=== PATIENT | female | born 1975 | race Caucasian/White ===

== ENCOUNTER 2018-12-04 08:44 | Emergency (ER) | payer MEDICARE, MEDICAID, SELFPAY ==
[2018-12-04] VITALS (24 sets, daily range): BP systolic 126–147; BP diastolic 84–100; PULSE 72–91; RESP 22; TEMP 36.6; O2SAT 95–100
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
[2018-12-04] MEDS: Lactated Ringers 1,000 ML 150 ML IV (09:49)
[2018-12-04] MEDS: Lidocaine 5% Patch 1 PATCH (10:04)
[2018-12-04 10:13] LABS: Abs Immature Grans 0.02 k/cumm (0.0-0.09); Absolute Basophil Count 0.03 k/cumm (0.0-0.2); Absolute Eosinophil Count 0.04 k/cumm (0.0-0.7); Absolute Lymphocyte Count 0.76 k/cumm (1.2-3.4); Absolute Monocyte Count 0.51 k/cumm (0.11-0.7); Absolute Neutrophil Count 7.68 k/cumm (1.2-6.7); Basophils % 0.3; Eosinophils % 0.4; HCT 33.7 % (36.0-46.0); HGB 10.3 g/dL (12.0-15.5); Immature Grans % 0.2; Lymphocytes % 8.4; Mean Corp. HGB Concentration 30.6 g/dL (32.0-36.0); Mean Corpuscular Hemoglobin 22.4 pg (27.0-33.0); Mean Corpuscular Volume 73.3 fL (80-95); Mean Platelet Volume 11.7 fL (8.0-11.0); Monocytes % 5.6; Neutrophils % 85.1; Platelet Count 286 x1000/uL (130-400); RBC Distribution Width 16.7 % (11.7-14.6); White Blood Cell Count 9.04 k/cumm (4.4-10.8)
[2018-12-04 10:27] LABS: ALT 21 U/L (12-78); AST 19 U/L (15-37); Albumin 3.5 g/dL (3.4-5.0); Alkaline Phosphatase 109 U/L (46-116); Anion Gap 8.6 mmol/L (3-11); BUN 8 mg/dL (7-18); Bilirubin, Total 0.4 mg/dL (0.2-1.0); CO2 26.4 mmol/L (21.0-32.0); CREATININE 1.13 mg/dL (0.55-1.02); Calcium 8.6 mg/dL (8.5-10.1); Chloride 105 mmol/L (98-107); Estimated GFR 53.06 (mL/min/1.73m2); Glucose 91 mg/dL (70-100); Potassium 4.2 mmol/L (3.5-5.1); Sodium 140 mmol/L (136-145); Total Protein 7.5 g/dL (6.4-8.2)
[2018-12-04 10:42] LABS: Anisocytosis 1+; Diff Comment RBC Morph Reviewed; Hypochromasia 1+; Microcytosis 2+
[2018-12-04] MEDS: Omnipaque 350 MG/ML 100 ML BTL IJ (10:47)
[2018-12-04] MEDS: Acetaminophen 325 MG TAB (11:51)
== END 2018-12-04 12:33 | disposition home or self-care (01) ==
PROVIDERS: Emergency Provider Student in an Organized Health Care Education/Training Program; PCP Nurse Practitioner Family
DX: S22.42XA Multiple fractures of ribs, left side, initial encounter for closed fracture (principal); V43.63XA Car passenger injured in collision with pick-up truck in traffic accident, initial encounter
CPT/HCPCS: 36415; 74177; 80053; 86850; 86900; 86901; 96360; 96361; 99285; 71260; 85025; 99284; J3490

== ENCOUNTER 2019-03-21 18:24 | Outpatient (REF) | payer MEDICARE, MEDICAID, SELFPAY | END 2019-03-21 18:44 | LOC: NCHCN 18:24 | PROVIDERS: PCP Nurse Practitioner Family; Visit Provider Nurse Practitioner Family | DX: N39.0 Urinary tract infection, site not specified (principal) | CPT/HCPCS: 87077; 87086; 87186 ==

== ENCOUNTER 2020-02-24 16:06 | Outpatient (REF) | payer MEDICARE, MEDICAID, SELFPAY ==
[2020-02-24 19:08] LABS: Abs Immature Grans 0.02 10^3/uL (0.0-0.06); Absolute Basophil Count 0.03 10^3/uL (0.0-0.2); Absolute Eosinophil Count 0.18 10^3/uL (0.0-0.7); Absolute Lymphocyte Count 1.54 10^3/uL (1.2-3.4); Absolute Neutrophil Count 4.43 10^3/uL (1.2-6.7); Basophils % 0.5; Eosinophils % 2.7; HCT 30.3 % (36.0-46.0); HGB 8.9 g/dL (11.2-15.7); Immature Grans % 0.3; Lymphocytes % 23.3; MCH 20.8 pg (27.0-33.0); MCHC 29.4 % (32.0-36.0); MCV 70.8 fL (80-95); MPV 11.8 fL (8.0-11.0); Monocytes % 6.1; Neutrophils % 67.1; Nucleated RBC 0 %; RBC 4.28 10^6/uL (3.93-5.22); RDW 17.9 % (11.7-14.6); RDW-SD 45.2 fL
[2020-02-24 19:28] LABS: Diff Comment RBC Morph Reviewed
[2020-02-24 19:34] LABS: Hypochromasia 2+; Microcytosis 3+; Poikilocytes 1+; Polychromasia Present
[2020-02-24 19:35] LABS: Platelet Count 223 10^3/uL (130-400)
[2020-02-24 19:56] LABS: Ferritin 4 ng/mL (8-252); Vitamin B12 375 pg/mL (193-986)
[2020-02-24 19:57] LABS: Folate > 20.0 ng/mL (8.6-20.0)
[2020-02-24 20:01] LABS: Iron 16 ug/dL (50-170); Total Iron Binding Capacity 412 ug/dL (250-450); Transferrin Sat 4 % (15-50)
== END 2020-02-24 16:26 ==
LOC: NCHCN 16:06
PROVIDERS: PCP Nurse Practitioner Family; Visit Provider Nurse Practitioner
DX: R36.0 Urethral discharge without blood (principal); R35.0 Frequency of micturition; Z86.2 Personal history of diseases of the blood and blood-forming organs and certain disorders involving the immune mechanism
CPT/HCPCS: 87077; 82607; 82728; 82746; 83540; 83550; 85025; 87086; 87186

== ENCOUNTER → 2020-05-15 10:24 | Outpatient (BNVA) | payer MEDICARE, MEDICAID, SELFPAY | PROVIDERS: PCP Nurse Practitioner Family; Referring Provider Nurse Practitioner Family; Visit Provider Surgery | DX: Z12.11 Encounter for screening for malignant neoplasm of colon (principal); Z80.0 Family history of malignant neoplasm of digestive organs; Z86.010 Personal history of colon polyps ==

== ENCOUNTER 2020-05-21 04:50 | Outpatient (CLI) | payer MEDICARE, MEDICAID, SELFPAY ==
[2020-05-23 10:02] LABS: COVID-19 RT-PCR Result NEGATIVE (Negative)
== END 2020-05-21 05:10 ==
PROVIDERS: PCP Nurse Practitioner Family; Visit Provider Surgery
DX: Z11.59 Encounter for screening for other viral diseases (principal); Z01.818 Encounter for other preprocedural examination
CPT/HCPCS: U0003

== ENCOUNTER 2020-05-25 06:47 | Day surgery (SDC) | payer MEDICARE, MEDICAID, SELFPAY ==
--- NOTE | 2020-05-25 06:50 | COLE_ITS ---
Date of service: 05/25/20 Time of Service: 08:27 Colonoscopy Report Date of procedure: 05/25/20 Pre-op diagnosis general: Hx of polyps and Family history of colon cancer Post-op diagnosis procedure note: same (polyps and diverticulosis) Procedure: Colonoscopy with polypectomy Surgeon: Rakel Peterson Anesthesia proc note operative: other (general/ASA 2/ González Alves CRNA) Estimated blood loss (mL): 3 Pathology: other (Ascending polyp, Transverse polyps x3) Complications: None Disposition: same day Indications: Ms. Kasper is here today to discuss a screening colonoscopy. She has a history of colon polyps as well as a family history of colon cancer in her father. Her father was in his 30s when he was diagnosed. She has not had any changes in bowel habits, melena or hematochezia. She was diagnosed with worsening anemia and started on iron recently. She has COPD and is on some inhalers. She denies any chest pain or shortness of breath. The procedure was discussed in detail. Reviewed risks benefits and com plications. Complications include but are not limited to bleeding, pain, perforation, missed small polyp or lesion, sore throat, aspiration and adverse reaction to medications. Questions were entertained and answered to her satisfaction and she wished to proceed. No guarantees were given or implied. We also reviewed current guidelines for Covid testing. We reviewed the quarantine guidelines after testing until the day of her procedure. Questions were answered in she agreed to testing. Plan is for colonoscopy under sedation. Prep: Miralax/Dulcolax Procedure Start Time: 08:27 Procedure End Time: 08:52 Retraction Time: 18 minutes Findings: 4 small sessile polyps. All <1 cm in size Lynn-diverticulosis. L>R Procedure Description: After informed consent was obtained the patient was taken to the procedure room and placed in a left decubitous position. Monitors were applied and a time out was done. The patients name, date of , procedure, allergies to medications and metal in their body was reviewed. The patient was then sedated. Once sedated and comfortable a rectal exam was done. External exam was normal. Internal exam revealed a normal sphincter tone and no palpable masses. The scope was then introduced and retro-flexed. No internal hemorrhoids were identified. The scope was then advanced to the cecum without difficulty. The ileocecal valve and appendiceal orifice were identified. The prep was good. The scope was then slowly retracted over 18 minutes back into the rectum. Polyps were removed with cold forceps in the ascending colon x1, and transverse colon x3. There was mild diverticulosis noted in the ascending and transverse colon and moderate diverticulosis in the descending and sigmoid colon. The scope was removed and the patient was woken up and taken back to Same day surgery in stable condition. The patient tolerated the procedure well and there were no immediate complications. Follow up: The patient should follow up in 5 years unless they develop changes in bowel habits or other new gastrointestinal complaints.
--- NOTE | 2020-05-25 06:52 | W.PM.DSUDISC ---
Discharge Plan Disposition Patient Disposition: HOME Condition: Stable Discharge Details Reason For Visit: Colonoscopy Attending Provider: Rakel Peterson Primary Care Provider: Clair Turner Home Meds and New Rx's Prescriptions: Continued lisinopril 20 mg tablet 20 mg PO DAILY RF: 0 magnesium oxide 500 mg tablet 500 mg PO BID RF: 0 hydroxyzine HCl 25 mg tablet 25 mg PO BID PRNRF: 0 budesonide-formoterol [Symbicort] 160-4.5 mcg/actuation HFA aerosol inhaler 1 puff IH BID RF: 0 rizatriptan 10 mg tablet 10 mg PO ONCE RF: 0 epinephrine [EpiPen 2-Ho] 0.3 mg/0.3 mL auto-injector 0.3 mg IM ONCE RF: 0 omeprazole 40 mg capsule,delayed release(DR/EC) 40 mg PO DAILY RF: 0 duloxetine [Cymbalta] 60 mg capsule,delayed release(DR/EC) 60 mg PO DAILY RF: 0 multivitamin Tablet 1 tab PO DAILY RF: 0 fluticasone propion-salmeterol [Advair Diskus] 500-50 mcg/dose blister with device 1 inh inhalation BID RF: 0 valacyclovir 500 mg tablet 500 mg PO DAILY RF: 0 albuterol sulfate [Ventolin HFA] 60 PUFF HFA aerosol inhaler 2 puff Inhalation Q4H PRNQty: 1 RF: 0 Discontinued bisacodyl [Dulcolax (bisacodyl)] 5 mg tablet,delayed release (DR/EC) 5 mg PO ONCE Qty: 4 RF: 0 polyethylene glycol 3350 17 gram powder in packet 255 g PO DAILY Qty: 15 RF: 0 Discharge Instructions Instructions: Diverticulosis (DC) Additional Instructions: Findings: 4 small polyps Diverticulosis Follow up: 5 years Please call if you develop: fevers >101.5 Nausea or Vomiting Abdominal pain that is not transient DAY SURGERY UNIT POST ENDOSCOPY INSTRUCTIONS 1. Because there will be medication in your system for the next 24 hours, you may feel a little sleepy. Your coordination will be affected. Therefore: a. Do not drive or operate dangerous equipment for 24 hours. b. Do not drink alcohol beverages for 24 hours (not even beer). c. Plan to go home and rest for the day. 2. Generally there are no restrictions on your activity after a day or so has gone by, but you may feel a bit fatigued for a few days. 3 After you arrive home you may have a light meal and return to a normal diet as you can tolerate it without feeling sick to your stomach. 4. After surgery, you may feel pain or discomfort. This should be only transient, but if it persists please contact your doctor. 5. If there are any questions regarding the findings of your procedure, please feel free to contact your doctor. 6. If you are unable to contact your doctor with a problem, contact the hospital at [phone]. 7. Continue all your regular medications unless directed otherwise. I understand the above instructions and have no questions. Signature of Patient or Responsible Adult Escort Date/Time Name of Responsible Adult Escort Signature of Nurse Date/Time Activity:: Activity as Tolerated Diet:: High Fiber diet Discharge Orders Discharge Orders: Discharge Order (Routine); Ordered 05/25/20 Ordered By: Rakel Peterson
[2020-05-25 07:15] VITALS: BP 113/79; PULSE 85; RESP 18; TEMP 36.2; O2SAT 95
[2020-05-25] MEDS: Lactated Ringers 1,000 ML 80 ML IV (07:42)
--- NOTE | 2020-05-25 08:35 | BOWEL_PTH ---
PATIENT: Meron Kasper LOC: RG U#:[id number] AGE/SX: 44/F ROOM: RE05/25/[address]: Rakel Peterson MD : 1975 BED: DIS: 05/25/2020 SPEC #: [id number] RECD: 05/25/20 12:28 STATUS: CATRACHITA REQ #: [id number] ABBIE: 05/25/20 08:[address]: Rakel Peterson DEPT: Surgical Specimen RECD BY: Ivelisse Huertas ENTERED: 05/25/20 12:29 SP TYPE: Bowel OTHR DR: Clair Turner Tissues: 1 - BIOPSY BOWEL 2 - BIOPSY BOWEL Procedures: GROSS AND MICRO LEVEL 4 Comments: [id number]
[2020-05-25 09:27] VITALS: BP 101/61; PULSE 68; RESP 17; TEMP 36.2; O2SAT 92
== END 2020-05-25 09:57 | disposition home or self-care (01) ==
PROVIDERS: PCP Nurse Practitioner Family; Visit Provider Surgery
PROC: 0DJD8ZZ Inspection of Lower Intestinal Tract, Via Natural or Artificial Opening Endoscopic (ICD-10-PCS; CPT 45378; principal; 2020-05-25 08:30)
DX: Z12.11 Encounter for screening for malignant neoplasm of colon (principal); Z80.0 Family history of malignant neoplasm of digestive organs; Z86.010 Personal history of colon polyps; D64.9 Anemia, unspecified; J44.9 Chronic obstructive pulmonary disease, unspecified; K63.5 Polyp of colon; K57.30 Diverticulosis of large intestine without perforation or abscess without bleeding
CPT/HCPCS: 45380; 81025; 88305; J2001

== ENCOUNTER 2022-05-11 12:00 | Outpatient (CLI) | payer MEDICARE, SELFPAY ==
--- NOTE | 2022-05-11 | DI.RAD_ITS ---
Exam(s) XR CHEST 2V PA LATERAL EXAM: XR CHEST 2V PA LATERAL CLINICAL HISTORY: COUGH, R05.8. TECHNIQUE: 2D digital imaging was performed. COMPARISON: CR ABD FLAT UPRIGHT PA CHEST from 06/23/2009 FINDINGS: 2 views: Heart size is normal. The mediastinum is not widened. Lungs are clear. No infiltrates nor pleural effusions. IMPRESSION: No acute pulmonary findings. DATA REPOSITORY: RADIATION DOSE DELIVERED:
--- OUTSIDE RECORDS SUMMARY | 2022-05-11 12:06 | XMS_ITS | Encounter Summary ---
:1975 Author Organization [facility] Address [address] [place] [address] Care Team Providers Name Role Phone Unavailable Primary Care Provider Unavailable Encounter Details Date Type Department Care Team Description 03/21/2008 Before [facility] - Hieu Brewster NP Converted Visit Maple conversion [address] ([place]) [address] [facility] [address] [place], [place] [id number] [place] [phone] (Wo rk) Social History Tobacco Use Types Packs/Day Years Used Date Smoking Tobacco: Never Assessed Sex Assigned at Date Recorded Not on file documented as of this encounter Plan of Treatment Not on filedocumented as of this encounter Procedures Procedure Name Priority Date/Time Associated Diagnosis Comme [facility] CYTOPATHOLOGY Routine 03/21/2008 0:00 EDT Results for this procedure are i n the results section . documented in this encounter Results CYTOPATHOLOGY (03/21/2008 0:00 EDT) Component Value Ref Test Analysis Performed At [facility] Method Time [facility] Pathology CYTOPATHOLOGY REPORT ? STEPHEN Report: ? [facility] Reports generated via electr onic interface contain original data; ? however they are lacking the format of the original report. ? Caution should be taken when reading/interpreting unformatted reports. ? Name: ? MERON RIVERA ? Accession #: ? [id number] ? : ? 1975 (Age: 32) ??F ?Collect Date: ? 03/21/2008 ? Location: ? [facility] ? Receive Date: ? 03/24/2008 ? Provider: ?AKANKSHA RAOUL HEWS PREBOARDER ? Copy to: ? Specimen/Source: ? Pap Test, Cervix/Endocervix, ThinPrep Imaging System ? with manual evaluation ? Last Menstrual Period: ? 10/2/08 ? Hormonal/Contraceptive Statu s: ? Control Pills: In past ? Previous Gynecologic Patholo gy: ? HPV: + ? ASC-US: 7/06, 5/03 ? FIDEL II: 7/3/03 ? Treatment History: ? Cervical biopsy: 7/3/03 ? Infection History: ? Bacterial vaginosis: Recurre nt and yeast ? Other: ? HPVA - HPV testing requested if ASC-US on the current ThinPrep Pap test. ? SPECIMEN ADEQUACY ? Satisfactory for Eval uation ? - transformation zone compon ent present ? GENERAL CATEGORIZATION ? Negative for Intraepi thelial Lesion or Malignancy ? Document reviewed and electr onically signed by: ? Lynan Sandro, CT(ASCP) ? Report Date: ??10/15/ 2008 17:11 ? End of Report ? Specimen (Source) Anatomical Location Collection Method / Collectio n Time Received Time / Laterality Volume 03/21/2008 03/24/2008 Akanksha Brewster NP PATHOLOGY ORDERABLES Performing Organization Address City/State/ZIP Code Phon e Number [facility] [address] [place] [address] SERVICES [facility] [address] [place] [address] documented in this encounter Visit Diagnoses Not on filedocumented in this encounter
--- OUTSIDE RECORDS SUMMARY | 2022-05-11 12:06 | XMS_ITS | Encounter Summary ---
:1975 Author Organization [facility] Address [address] [place] [id number] Care Team Providers Name Role Phone Fay Riddle MD Primary Care Provider Encounter Details Date Type Department Care Team Description 07/21/2010 Results Only [facility] Devi Gibson NP Laboratory Services - [address] [address] Social History Tobacco Use Types Packs/Day Years Used Date Smoking Tobacco: Never Assessed Sex Assigned at Date Recorded Not on file documented as of this encounter Plan of Treatment Not on filedocumented as of this encounter Procedures Procedure Name Priority Date/Time Associated Diagnosis Comme nts CYTOPATHOLOGY Routine 07/21/2010 0:00 EST Results for this procedure are i n the results section . documented in this encounter Results CYTOPATHOLOGY (07/21/2010 0:00 EST) Component Value Ref Test Analysis Performed At [facility] Range Method Time Signature Pathology CYTOPATHOLOGY REPORT ? [facility] Report: ? [facility] Reports generated via AllergEase interface contain original data; ? however they are lacking the format of the original report. ? Caution should be taken when reading/interpreting unformatted reports. ? Name: ? MERON RIVERA ? Accession #: ? [id number] ? : ? 1975 (Age: 34) ??F ?Collect Date: ? 07/21/2010 ? Location: ? [facility] ? R eceive Date: ? 07/22/2010 ? Provider: DEVI M SOLO TRACK WATCHMAN ? Copy to: ? Final Report ? SPECIMEN ADEQUACY ? Satisfactory for Eval uation ? - transformation zone compon ent present ? GENERAL CATEGORIZATION ? Negative for Intraepi thelial Lesion or Malignancy ? INTERPRETATION ? Shift in arron presen t suggestive of bacterial vaginosis. ? Last Menstural Period: 2010 ? Previous Gynecologic Patholo gy: FIDEL II: H/O ? ASC-US: 2005 ? Treatment History: Colposcop y: 2003 ? Specimen/Source: ??Pap Test, Cervix/Endocervix, ThinPrep Imaging System with ? manual evaluation ? Document reviewed and electr onically signed by: ? Vani Middleton, SCT( ASCP) ? Report ??Date: 02/14/ 2011 13:21 ? HPV with Pap Test ? Date Ordered: ? 0 07/26/2010 ? Status: ?? Signed Out ?Date Complete: ? 07/29/2010 ? By: ??System Interface ? Date Reported: ? 07/29/2010 ? Interpretation ? RESULT: Negative for HPV typ es 16, 18, 31, 33, 35, 39, 45, 51, 52, ? 56, 58, 59, and 68. ? Comments ? Document reviewed and electr onically signed by: ? System Interface ? Report date: // 11 ? By the signature above, the attending physician certifies that he/she has ? personally conducted a gross and/or microscopic examination of the described ? specimens and rendered or co nfirmed the above diagnosis. ? End of Report ? Specimen (Source) Anatomical Location Collection Method / Collectio n Time Received Time / Laterality Volume 07/21/2010 07/22/2010 Devi Gibson NP PATHOLOGY ORDERABLES Performing Organization Address City/State/ZIP Code Phon e Number [facility] [address] [place] [address] SERVICES [facility] [address] [place] [address] documented in this encounter Visit Diagnoses Not on filedocumented in this encounter Care Teams Calibration Tester Relationship Specialty Start Date End Date Fay Riddle MD PCP - General 07/21/09 [address] [place] [address] documented as of this encounter
--- OUTSIDE RECORDS SUMMARY | 2022-05-11 12:06 | XMS_ITS | Encounter Summary ---
:1975 Author Organization [facility] Address [address] [place] [address] Care Team Providers Name Role Phone Fay Riddle MD Primary Care Provider Encounter Details Date Type Department Care Team Description 02/22/2010 Hospital Encounter [facility] - Bhumi Robert, Other DMD [address] [facility] [address] [place] [address] [address] [place] [phone] (Wo rk) Social History Tobacco Use Types Packs/Day Years Used Date Smoking Tobacco: Never Assessed Sex Assigned at Date Recorded Not on file documented as of this encounter Discharge Disposition Disposition Code Departure Means Destination Home or Self Care documented in this encounter Plan of Treatment Not on filedocumented as of this encounter Visit Diagnoses Not on filedocumented in this encounter Care Teams Piano And Organ Refinisher Relationship Specialty Start Date End Date Fay Riddle MD PCP - General 07/21/[address] [place] [phone] documented as of this encounter
--- OUTSIDE RECORDS SUMMARY | 2022-05-11 12:06 | XMS_ITS | Encounter Summary ---
:1975 Author Organization [facility] Address [address] [place] [address] Care Team Providers Name Role Phone Fay Riddle MD Primary Care Provider Encounter Details Date Type Department Care Team Description 10/26/2009 Results Only [facility] Cesar Bhandari MD Laboratory Services - [address] [address] [address] [facility] [place] [address] Social History Tobacco Use Types Packs/Day Years Used Date Smoking Tobacco: Never Assessed Sex Assigned at Date Recorded Not on file documented as of this encounter Plan of Treatment Not on filedocumented as of this encounter Procedures Procedure Name Priority Date/Time Associated Diagnosis Comme [facility] SURGICAL PATHOLOGY Routine 10/26/2009 0:00 EDT Re sults for this procedure are i n the results section. documented in this encounter Results SURGICAL PATHOLOGY (10/26/2009 0:00 EDT) Component Value Ref Test Analysis Performed At [facility] Method Time Signature Pathology SURGICAL PATHOLOGY REPORT ? HONEY HER Report: Reports generated via electr Lopoly interface contain original data; ? [facility] WALLACE however they are lacking the format of the original report. ? Caution should be taken when reading/interpreting unformatted reports. ? Name: ? WHITE, MERON ? Accession #: ? [id number] ? : ? 1975 (Age: 33) ??F ? Collec t Date: ? 10/26/2009 ? Location: ? [facility] ? R eceive Date: ? 10/26/2009 ? Provider: CESAR JAUCH MD ? Copy to: AKANKSHA WHITLOCK ACCOUNTING SUPERVISOR ? Final Pathologic Diagnosis: ? A. ?Tonsil, lef t, tonsillectomy: ? 1. ?Reactive ly mphoid hyperplasia. ? 2. ? Focal acute inflamm ation of tonsillar crypts associated with ? Actinomycotic--like micro-or ganisms. ? B. ?Tonsil, rig ht, tonsillectomy: ? 1. ?Reactive ly mphoid hyperplasia. ? 2. ? Focal acute inflamm ation of tonsillar crypts associated with ? Actinomycotic-like micro-org anisms. ? Document reviewed and electr onically signed by: ? Meme Hamilton MD ? Report ??Date: 10/28/2009 16 :09 ? By the signature above, the attending physician certifies that he/she has ? personally conducted a gross and/or microscopic examination of the described ? specimens and rendered or co nfirmed the above diagnosis. ? Specimen(s) Received: ? A. ?Left tonsil ? B. ? Right tonsil ? Clinical History: ? Chronic tonsillitis w ith recurrent strep ? Gross Description: ? Received in formalin labelled White, Meron and left tonsil is a 2.2 x 1.8 x 1.4 cm, nodular tiss ue grossly consistent with a palatine tonsil. ??The ?? specimen is partially surfac ed by a pink-cui, smooth and cryptic mucosa and upon sectioning has a pink-cui cu t surface without discrete masses. ?? A single ? sales solutions representative section is whitt bmitted as (A). ? Received in formalin akosua d White, Meron and right tonsil is a 2.8 x ?? 1.9 x 1.5 cm, nodular tissue grossly consistent with a palatine tonsil. ??The ? specimen is partially surfac ed by a pink-cui, smooth and cryptic mucosa and ? sectioning reveals a pink-ta n cut surface without discrete masses. ??A single ? sales solutions representative section is whitt bmitted as (B). ??(Barbara Medina)/samm ? End of Report ? Specimen (Source) Anatomical Collection Method Collection Time Re ceived Time Location / / Volume Laterality 10/26/2009 10/26/2009 19:4 8 EDT Cesar Bhandari MD PATHOLOGY ORDERABLES Performing Organization Address City/State/ZIP Code Phon e Number [facility] [address] [place] [address] SERVICES [facility] [address] [place] [address] documented in this encounter Visit Diagnoses Not on filedocumented in this encounter Care Teams Associate Director Qa Relationship Specialty Start Date End Date Fay Riddle MD PCP - General 07/21/09 [address] [place] [address] documented as of this encounter
--- OUTSIDE RECORDS SUMMARY | 2022-05-11 12:06 | XMS_ITS | Clinical Summary ---
:1975 Author Organization [facility] Address [address] [place] [address] Care Team Providers Name Role Phone Fay Riddle MD Primary Care Provider Social History Tobacco Use Types Packs/Day Years Used Date Smoking Tobacco: Never Assessed Sex Assigned at Date Recorded Not on file Plan of Treatment Health Maintenance Due Date Last Done Comments Hepatitis C Screen 1975 COVID-19 Vaccine (#1) 07/03/1977 Care Teams Welt Trimming Machine Operator Relationship Specialty Start Date End Date Fay Riddle MD PCP - General 07/21/[address] [place] [address]
--- OUTSIDE RECORDS SUMMARY | 2022-05-11 12:06 | XMS_ITS | Encounter Summary ---
:1975 Author Organization [facility] Address [address] [place] [address] Care Team Providers Name Role Phone Fay Riddle MD Primary Care Provider Encounter Details Date Type Department Care Team Description 02/22/2010 Results Only [facility] Lan Robert, DMD Laboratory Services - [address] [facility] [address] [place], [place] [phone] (Wo rk) Social History Tobacco Use Types Packs/Day Years Used Date Smoking Tobacco: Never Assessed Sex Assigned at Date Recorded Not on file documented as of this encounter Plan of Treatment Not on filedocumented as of this encounter Procedures Procedure Name Priority Date/Time Associated Diagnosis Comme [facility] SURGICAL PATHOLOGY Routine 02/22/2010 0:00 EDT Re sults for this procedure are i n the results section. documented in this encounter Results SURGICAL PATHOLOGY (02/22/2010 0:00 EDT) Component Value Ref Test Analysis Performed At [facility] Method Time Signature Pathology SURGICAL PATHOLOGY REPORT ? HONEY HER Report: Reports generated via electr TxVia interface contain original data; ? JANAY WALLACE however they are lacking the format of the original report. ? Caution should be taken when reading/interpreting unformatted reports. ? Name: ? WHITE, MERON ? Accession #: ? [id number] ? : ? 1975 (Age: 34) ??F ? Collec t Date: ? 02/22/2010 ? Location: ? [facility] ? R eceive Date: ? 02/22/2010 ? Provider: ERNESTO A MAXIM D MD ? Copy to: GLORIA A JS DDS ? Final Pathologic Diagnosis: ? Mandible, left lower, lesion, excision: ? - Fibro-osseous lesion. ??Se e comment. ? Comment: ? The specimen shows ir regular trabeculae of osteoid and woven bone, ? surrounded by a fibrous spin dle cell stroma. ??There are rare fragments of ? lamellar bone. ??The differe ntial diagnosis includes both fibrous dysplasia as ?? well as ossifying fibroma. T he trabeculae are not rimmed by osteoblasts, a ? finding which favors fibrous dyplasia rather than ossifying fibroma, however, ?? the distinction between thes e two entities requires radiologic correlation. ? Cementum is not identified. No features of malignancy are identified. ? Senior Construction Manager sections were reviewed at the intradepartmental consultation ? conference. ??(Dr. Navarro)/ arthur ? Document reviewed and electr onically signed by: ? JENNIFER FUENTES MD ? Report ??Date: 02/25/2010 15 :19 ? By the signature above, the attending physician certifies that he/she has ? personally conducted a gross and/or microscopic examination of the described ? specimens and rendered or co nfirmed the above diagnosis. ? Specimen(s) Received: ? Contents of lesion L mandible ? Clinical History: ? 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 Gross Description: ? Received in formalin labelled White, Meron and lower left mandible ?? are multiple fragments of re d-brown, bony tissue which measure 1.0 x 0.6 x 0.4 ?? cm in aggregate. ??Also pres ent is a portion of cui-white soft tissue measuring ?? 0.6 x 0.6 x 0.2 cm. ??The earlene ny tissues are submitted entirely as (A1) following ?? decalcification. ??The soft tissue is bisected and submitted entirely as (A2). ?? (RUTH ANN Tessitore)/justinn ? End of Report ? Specimen (Source) Anatomical Collection Method Collection Time Re ceived Time Location / / Volume Laterality 02/22/2010 02/22/2010 19:5 9 EDT Ernesto Robert DMD PATHOLOGY ORDERABLES Performing Organization Address City/State/ZIP Code Phon e Number [facility] [address] [place] [address] SERVICES [facility] [address] [place] [address] documented in this encounter Visit Diagnoses Not on filedocumented in this encounter Care Teams Relationship Specialty Start Date End Date Fay Riddle MD PCP - General 07/21/09 [address] [place], [place] [address] documented as of this encounter
--- OUTSIDE RECORDS SUMMARY | 2022-05-11 12:07 | XMS_ITS | Encounter Summary ---
:1975 Author Organization [facility] Address [address] [place] [address] Care Team Providers Name Role Phone Fay Riddle MD Primary Care Provider Encounter Details Date Type Department Care Team Description 01/21/2005 Results Only [facility] - Fay Moreno MD conversion [address] [facility] [address] [place] [address] [place], [place] [id number] [phone] Social History Tobacco Use Types Packs/Day Years Used Date Smoking Tobacco: Never Assessed Sex Assigned at Date Recorded Not on file documented as of this encounter Plan of Treatment Not on filedocumented as of this encounter Procedures Procedure Name Priority Date/Time Associated Comments Diagnosis HPV DETECTION, HIGH Routine 01/21/2005 9:38 Resul ts for this RISK TYPES EDT procedure are i n the results section. CYTOPATHOLOGY Routine 01/21/2005 0:00 Results for this EDT procedure are i n the results section. documented in this encounter Results HUMAN PAPILLOMA VIRUS DNA TEST (01/21/2005 9:38 EDT) [facility] Method Time Signature Specimen Cervix, MITCHELL Description ThinPrep [facility] vial Result Negative for MITCHELL HPV types [facility] 16, 18, 31, 33, 35, 39, 45, 51, 52, 56, 58, 59, and 68. Report Status Final STEPHEN [id number] [facility] Specimen Anatomical Collection Method Collection Time Receive d Time (Source) Location / / Volume Laterality 01/21/2005 9:38 02/04/2005 9 :38 EDT EDT Fay Riddle MD MICROBIOLOGY - GENERAL ORDER DAYANNA Performing Organization Address City/State/ZIP Code Phon e Number [facility] [address] [place] [address] SERVICES [facility] [address] [place] [address] CYTOPATHOLOGY (01/21/2005 0:00 EDT) Component Value Ref Test Analysis Performed At [facility] Method Time Signature Pathology CYTOPATHOLOGY REPORT STEPHEN Report: [facility] Reports generated via electronic interface contain original data; however they are lacking the format of the original report. Caution should be taken when reading/interpreting unformatte d reports. Name: ? MERNO RIVERA ? Accession #: ? [id number] : ? 1975 (Age: 29) ??F ?Collect Date: ? 01/21/2005 Location: ? [facility] ? Receive Date: ? 01/24/2005 Provider: ?FAY RIDDLE MD Copy to: ? Specimen/Source: ? ThinPrep Pap Test, Cervix, processed on [employer] ThinPrep Imaging System, with manual evaluation Last Menstrual Period: ? 12/15/04 Previous Gynecologic Pathology: ? Yes: dysplasia Treatment History: ? Cryotherapy Other: ? HPVDX - HPV testing requested regardless of diag nosis on current ThinPrep Pap test. ? SPECIMEN ADEQUACY ? Satisfactory for Evaluation - transformation zone component present GENERAL CATEGORIZATION ? Epithelial Cell Abnormality INTERPRETATION ? Squamous Cell Abnormality - Atypical squamous cells, undetermined significance. Shift in arron present suggestive of bacterial vaginosis. EDUCATIONAL NOTES/RECOMMENDATIONS ? [facility] recommends jax wing the 2001 Consensus Guidelines for the Management of Women with Cervical Cytological Abnormalities (MESSI,2002 ;287:2120-9). Management algorithms have b een distributed by [facility] and are available online at www.ASCCP.org. ? Document reviewed and electronically signed by: ? ONELIA HORVATH MD ? Report Date: ??02/03/2005 14:17 End of Report Specimen (Source) Anatomical Location Collection Method / Collectio n Time Received Time / Laterality Volume 01/21/2005 01/24/2005 Fay Riddle MD PATHOLOGY ORDERABLES Performing Organization Address City/State/ZIP Code Phon e Number [facility] [address] [place] [address] SERVICES [facility] [address] [place] [address] documented in this encounter Visit Diagnoses Not on filedocumented in this encounter Care Teams Biomass Power Plant Manager Relationship Specialty Start Date End Date Fay Riddle MD PCP - General 07/21/09 [address] [place], [place] [id number] documented as of this encounter
--- OUTSIDE RECORDS SUMMARY | 2022-05-11 12:07 | XMS_ITS | Encounter Summary ---
:1975 Author Organization [facility] Address [address] [place] [address] Care Team Providers Name Role Phone Fay Riddle MD Primary Care Provider Encounter Details Date Type Department Care Team Description 11/29/2001 Results Only [facility] - Fay Moreno MD conversion [address] [facility] [address] [place] [address] [place], [place] [id number] [phone] Social History Tobacco Use Types Packs/Day Years Used Date Smoking Tobacco: Never Assessed Sex Assigned at Date Recorded Not on file documented as of this encounter Plan of Treatment Not on filedocumented as of this encounter Procedures Procedure Name Priority Date/Time Associated Diagnosis Comme nts CYTOPATHOLOGY Routine 11/29/2001 0:00 EDT Results for this procedure are i n the results section . documented in this encounter Results CYTOPATHOLOGY (11/29/2001 0:00 EDT) Component Value Ref Test Analysis Performed At [facility] Method Time Signature Pathology CYTOPATHOLOGY REPORT STEPHEN Report: [facility] Reports generated via electronic interface contain original data; however they are lacking the format of the original report. Caution should be taken when reading/interpreting unformatte d reports. Name: ? MERON RIVERA ? Accession #: ? [id number] : ? 1975 (Age: 25) ??F ?Collect Date: ? 11/29/2001 Location: ? [facility] ? Receive Date: ? 12/03/2001 Provider: ?FAY RIDDLE MD Copy to: ? Specimen/Source: ?ThinPrep Pap Test, Cervix/Endoce rvix Last Menstrual Period: ? 3 days ago Hormonal/Contraceptive Status: ? Oral contraceptives ? SPECIMEN ADEQUACY ? Satisfactory for Evaluation - transformation zone component present GENERAL CATEGORIZATION ? Epithelial Cell Abnormality INTERPRETATION ? Squamous Cell Abnormality - High grade sq uamous intraepithelial lesion (HSIL). EDUCATIONAL NOTES/RECOMMENDATIONS ? [facility] recommends jax wing the 2001 Consensus Guidelines for the Management of Women with Cervical Cytological Abnormalities (MESSI,2002 ;287:2120-9). Management algorithms have b een distributed by [facility] and are available online at www.[email or web address]. ? Document reviewed and electronically signed by: ? VI CURRAN MD [facility] ? Report Date: ??12/06/2001 15:50 End of Report Specimen (Source) Anatomical Location Collection Method / Collectio n Time Received Time / Laterality Volume 11/29/2001 12/03/2001 Fay Riddle MD PATHOLOGY ORDERABLES Performing Organization Address City/State/ZIP Code Phon e Number [facility] [address] [place] [address] SERVICES [facility] [address] [place] [address] documented in this encounter Visit Diagnoses Not on filedocumented in this encounter Care Teams Agriculture Science Teacher Relationship Specialty Start Date End Date Fay Riddle MD PCP - General 07/21/09 [address] [place] [address] documented as of this encounter
--- OUTSIDE RECORDS SUMMARY | 2022-05-11 12:07 | XMS_ITS | Encounter Summary ---
:1975 Author Organization [facility] Address [address] [place] [address] Care Team Providers Name Role Phone Fay Riddle MD Primary Care Provider Encounter Details Date Type Department Care Team Description 04/13/[address] [facility] - Fay Moreno MD conversion [address] [facility] [address] [place] [address] [place], [place] [id number] [phone] Social History Tobacco Use Types Packs/Day Years Used Date Smoking Tobacco: Never Assessed Sex Assigned at Date Recorded Not on file documented as of this encounter Plan of Treatment Not on filedocumented as of this encounter Procedures Procedure Name Priority Date/Time Associated Diagnosis Comme nts CYTOPATHOLOGY Routine 04/13/2007 0:00 EDT Results for this procedure are i n the results section . documented in this encounter Results CYTOPATHOLOGY (04/13/2007 0:00 EDT) Component Value Ref Test Analysis Performed At [facility] Method Time Signature Pathology CYTOPATHOLOGY REPORT STEPHEN Report: [facility] Reports generated via electronic interface contain original data; however they are lacking the format of the original report. Caution should be taken when reading/interpreting unformatte d reports. Name: ? MERON RIVERA ? Accession #: ? [id number] : ? 1975 (Age: 31) ??F ?Collect Date: ? 04/13/2007 Location: ? [facility] ? Receive Date: ? 04/17/2007 Provider: ?FAY RIDDLE MD Copy to: ? Specimen/Source: ? ThinPrep Pap Test, Cervix/Endocervix, processed on [employer] ThinPrep Imaging System, with manual evaluation Last Menstrual Period: ? Menstrual/ Status: ? Irregular Previous Gynecologic Pathology: ? HPV: + ASC-US: Hx FIDEL II Treatment History: ? Cervical biopsy ? SPECIMEN ADEQUACY ? Satisfactory for Evaluation - transformation zone component present GENERAL CATEGORIZATION ? Negative for Intraepithelial Lesion or Malignancy INTERPRETATION ? Reactive cellular cristobal nges associated with inflammation present (includes repair). Shift in arron present suggestive of bacterial vaginosis. ? Document reviewed and electronically signed by: ? YAZ CESAR MD ? Report Date: ??04/23/2007 18:25 End of Report Specimen (Source) Anatomical Location Collection Method / Collectio n Time Received Time / Laterality Volume 04/13/2007 04/17/2007 Fay Ridlde MD PATHOLOGY ORDERABLES Performing Organization Address City/State/ZIP Code Phon e Number [facility] [address] [place] [address] SERVICES [facility] [address] [place] [address] documented in this encounter Visit Diagnoses Not on filedocumented in this encounter Care Teams Supervisor Hairspring Fabrication Relationship Specialty Start Date End Date Fay Riddle MD PCP - General 07/21/09 [address] [place] [address] documented as of this encounter
--- OUTSIDE RECORDS SUMMARY | 2022-05-11 12:07 | XMS_ITS | Encounter Summary ---
:1975 Author Organization [facility] Address [address] [place] [address] Care Team Providers Name Role Phone Fay Riddle MD Primary Care Provider Encounter Details Date Type Department Care Team Description [address] [facility] - Lio Walls MD conversion [address] [place] [address] Social History Tobacco Use Types Packs/Day Years Used Date Smoking Tobacco: Never Assessed Sex Assigned at Date Recorded Not on file documented as of this encounter Plan of Treatment Not on filedocumented as of this encounter Procedures Procedure Name Priority Date/Time Associated Diagnosis Comme [facility] SURGICAL PATHOLOGY Routine 2001 0:00 EDT Re sults for this procedure are i n the results section. documented in this encounter Results SURGICAL PATHOLOGY (2001 0:00 EDT) Component Value Ref Test Analysis Performed At [facility] Method Time Signature Pathology SURGICAL PATHOLOGY REPORT FORREST CONKLIN Report: Reports generated via electronic interface contain carlos l data; [facility] however they are lacking the format of the original report. Caution should be taken when reading/interpreting unformatte d reports. Name: ? MERON RIVERA ? Accession #: ? [id number] ? : ? 1975 (Age: 26) ??F ? Collect Date: ? 2001 ? Location: ? [facility] ? Receive Date: ? 01/01/2002 ? Provider: LIO MUSA MD Copy to: SANDY RIDDLE MD ? Final Pathologic Diagnosis: A. ?Cervix, biopsies: 1. ?Low grade s quamous intraepithelial lesion (FIDEL I). ??See comment. 2. ?Dysplasia present in one of three biopsy fr agments. B. ?Cervix, 6 o' clock, biopsy: ? 1. ?? Low grade squamous intraepi thelial lesion (FIDEL I). ??See comment. Comment: ? 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 ??Although rare foci of the low grade squamous intraepithelial lesion p resent in the current case border the diag nostic criteria for a high grade NAFISA, the dysplastic cells present do not match t he cytologic features of the dysplastic cells of the HSIL in the previous pap-smear and the m aturation pattern is that of low grade NAFISA. ??Deeper sections were examined and sales representative meats sections were reviewed at the intradepartmental consultation conference. Clinical purvi elation is suggested. () Document reviewed and electronically signed by: SANDY BOBO MD Report ??Date: 01/03/2002 22:21 By the signature above, the attending physician certifies th at he/she has personally conducted a gross and/or microscopic examin ation of the described specimens and rendered or confirmed the above diagnosis. Specimen(s) Received: A. ?12 o' clock (#1) B. ?6 o' clock (#2) Clinical History: ? Pap ??HG NAFISA Gross Description: ? Received in formalin labelled White and #1 c ervix are three white biopsies which range in size from 0.3 x 0.3 x 0.1 cm up to 0.5 x 0.3 x 0.1 cm. The specimen is submitted entirely as (A). Received in formalin akosua d White and #2 cervix 6 o' clock is a 0.4 x 0.4 x 0.2 cm cui-white biopsy. ??The specimen is submitted int act as (B). ??(RUTH ANN Caruso)/arthur End of Report Specimen (Source) Anatomical Collection Method Collection Time Re ceived Time Location / / Volume Laterality 2001 01/01/2002 9:12 EDT Lio Musa MD PATHOLOGY ORDERABLES Performing Organization Address City/State/ZIP Code Phon e Number [facility] [address] [place] [address] SERVICES [facility] [address] [place] [address] documented in this encounter Visit Diagnoses Not on filedocumented in this encounter Care Teams Pediatric Neurologist Relationship Specialty Start Date End Date Fya Riddle MD PCP - General 07/21/09 [address] [place], [place] [address] documented as of this encounter
--- OUTSIDE RECORDS SUMMARY | 2022-05-11 12:07 | XMS_ITS | Encounter Summary ---
:1975 Author Organization [facility] Address [address] [place] [address] Care Team Providers Name Role Phone Fay Riddle MD Primary Care Provider Encounter Details Date Type Department Care Team Description 11/01/2002 Results Only [facility] - Fay Moreno MD conversion [address] [facility] [address] [place] [address] [place], [place] [id number] [phone] Social History Tobacco Use Types Packs/Day Years Used Date Smoking Tobacco: Never Assessed Sex Assigned at Date Recorded Not on file documented as of this encounter Plan of Treatment Not on filedocumented as of this encounter Procedures Procedure Name Priority Date/Time Associated Comments Diagnosis HPV DETECTION, HIGH Routine 11/01/2002 14:26 Resu lts for this RISK TYPES EDT procedure are i n the results section. CYTOPATHOLOGY Routine 11/01/2002 0:00 Results for this EDT procedure are i n the results section. documented in this encounter Results HUMAN PAPILLOMA VIRUS DNA TEST (11/01/2002 14:26 EDT) [facility] Method Time Signature Specimen Cervix, [place] Description ThinPrep vial [facility] Result Positive for one or more of HPV types 16,18,31,33,35,39,45,51,52,56,58,59, or 68. These MIT[place]LL high/intermediate risk HPV t ypes are associated with dysplasia and some cervical cancers. [facility] Report Status Final [place] [id number] [facility] Specimen Anatomical Collection Method Collection Time Receive d Time (Source) Location / / Volume Laterality 11/01/2002 14:26 11/11/2002 EDT 14:26 EDT Fay Riddle MD MICROBIOLOGY - GENERAL ORDER DAYANNA Performing Organization Address City/State/ZIP Code Phon e Number [facility] [address] [place] [address] SERVICES [place] [address] [place] [address] CYTOPATHOLOGY (11/01/2002 0:00 EDT) Component Value Ref Test Analysis Performed At [facility] Range Method Time Signature Pathology CYTOPATHOLOGY REPORT STPEHEN Report: [facility] Reports generated via electronic interface contain original data; however they are lacking the format of the original report. Caution should be taken when reading/interpreting unformatte d reports. Name: ? MERON RIVERA ? Accession #: ? [id number] : ? 1975 (Age: 26) ??F ?Collect Date: ? 11/01/2002 Location: ? [facility] ? Receive Date: ? 11/06/2002 Provider: ?FAY RIDDLE MD Copy to: ? Specimen/Source: ?ThinPrep Pap Test, Cervix/Endoce rvix Last Menstrual Period: ? Early September Previous Gynecologic Pathology: ? LSIL: by bx 12/11, no pap since Other: ? HPVDX - HPV testing requested regardless of diag nosis on current ThinPrep Pap test. ? SPECIMEN ADEQUACY ? Satisfactory for Evaluation - transformation zone component present GENERAL CATEGORIZATION ? Epithelial Cell Abnormality INTERPRETATION ? Squamous Cell Abnormality - Atypical squamous cells, undetermined significance. Shift in arron present suggestive of bacterial vaginosis. EDUCATIONAL NOTES/RECOMMENDATIONS ? [facility] recommends jax hartmann the 2001 Consensus Guidelines for the Management of Women with Cervical Cytological Abnormalities (MESSI,2002 ;287:2120-9). Management algorithms have b een distributed by [facility] and are available online at www.ASCCP.org. ? Document reviewed and electronically signed by: ? Hailey Tran MD PhD ? Report Date: ??11/08/2002 12:51 End of Report Specimen (Source) Anatomical Location Collection Method / Collectio n Time Received Time / Laterality Volume 11/01/2002 11/06/2002 Fay Riddle MD PATHOLOGY ORDERABLES Performing Organization Address City/State/ZIP Code Phon e Number [facility] [address] [place] [address] SERVICES [facility] [address] [place] [address] documented in this encounter Visit Diagnoses Not on filedocumented in this encounter Care Teams Classifying Machine Operator Relationship Specialty Start Date End Date Fay Riddle MD PCP - General 07/21/09 [address] [place], [place] [address] documented as of this encounter
--- OUTSIDE RECORDS SUMMARY | 2022-05-11 12:07 | XMS_ITS | Encounter Summary ---
:1975 Author Organization [facility] Address [address] [place] [address] Care Team Providers Name Role Phone Fay Riddle MD Primary Care Provider Encounter Details Date Type Department Care Team Description 06/15/2003 Results Only [facility] - Lavinia Zabala , Kisha Borrego, ROOPA conversion [address] [facility] 1 [address] [place] [phone] (Wo rk) Social History Tobacco Use Types Packs/Day Years Used Date Smoking Tobacco: Never Assessed Sex Assigned at Date Recorded Not on file documented as of this encounter Plan of Treatment Not on filedocumented as of this encounter Procedures Procedure Name Priority Date/Time Associated Comments Diagnosis HPV DETECTION, HIGH Routine 06/15/2003 14:38 Resu lts for this RISK TYPES EST procedure are i n the results section. CYTOPATHOLOGY Routine 06/15/2003 0:00 Results for this EST procedure are i n the results section. documented in this encounter Results HUMAN PAPILLOMA VIRUS DNA TEST (06/15/2003 14:38 EST) [facility] Method Time Signature Specimen Cervix, MIT[place]LL Description ThinPrep [facility] vial Result Negative for STEPHEN HPV types [facility] 16, 18, 31, 33, 35, 39, 45, 51, 52, 56, 58, 59, and 68. Report Status Final STEPHEN [id number] [facility] Specimen Anatomical Collection Method Collection Time Receive d Time (Source) Location / / Volume Laterality 06/15/2003 14:38 06/24/2003 EST 14:38 EST Kisha Zabala NP MICROBIOLOGY - GENERAL ORDER DAYANNA Performing Organization Address City/State/ZIP Code Phon e Number [facility] [address] [place] [address] SERVICES [place] [facility] [address] [place] [address] CYTOPATHOLOGY (06/15/2003 0:00 EST) Component Value Ref Test Analysis Performed At [facility] Range Method Time Signature Pathology CYTOPATHOLOGY REPORT STEPHEN Report: [facility] Reports generated via electronic interface contain original data; however they are lacking the format of the original report. Caution should be taken when reading/interpreting unformatte d reports. Name: ? MERON RIVERA ? Accession #: ? [id number] : ? 1975 (Age: 27) ??F ?Collect Date: ? 06/15/2003 Location: ? [facility] ? Receive Date: ? 06/17/2003 Provider: ?KISHA ZABALA NP Copy to: ? Specimen/Source: ?ThinPrep Pap Test, Cervix/Endoce rvix Last Menstrual Period: ? 03/21/03 Previous Gynecologic Pathology: ? HSIL: 10/12 & 11/11 HPV: + 11/12 Treatment History: ? Colposcopy Other: ? HPVA - HPV testing requested if ASC-US on the current ThinPr ep Pap test. ? SPECIMEN ADEQUACY ? Satisfactory for Evaluation - transformation zone component present GENERAL CATEGORIZATION ? Epithelial Cell Abnormality INTERPRETATION ? Squamous Cell Abnormality - Atypical squamous cells, undetermined significance. EDUCATIONAL NOTES/RECOMMENDATIONS ? [facility] recommends jax wing the 2001 Consensus Guidelines for the Management of Women with Cervical Cytological Abnormalities (MESSI,2002 ;287:2120-9). Management algorithms have b een distributed by [facility] and are available online at www.ASCCP.org. ? Document reviewed and electronically signed by: ? Hailey Tran MD PhD ? Report Date: ??06/23/2003 11:43 End of Report Specimen (Source) Anatomical Location Collection Method / Collectio n Time Received Time / Laterality Volume 06/15/2003 06/17/2003 Kisha Zabala NP PATHOLOGY ORDERABLES Performing Organization Address City/State/ZIP Code Phon e Number [facility] [address] [place] [address] SERVICES [facility] [address] [place] [address] documented in this encounter Visit Diagnoses Not on filedocumented in this encounter Care Teams Pizza Delivery Relationship Specialty Start Date End Date Fay Riddle MD PCP - General 07/21/[address] [place] [id number] documented as of this encounter
--- OUTSIDE RECORDS SUMMARY | 2022-05-11 12:07 | XMS_ITS | Encounter Summary ---
:1975 Author Organization [facility] Address [address] [place] [address] Care Team Providers Name Role Phone Fay Riddle MD Primary Care Provider Encounter Details Date Type Department Care Team Description 01/01/[address] [facility] - Kisha Turpin, DRESSAGE INSTRUCTOR conversion [address] [facility] 1 [address] [place] [phone] (Wo rk) Social History Tobacco Use Types Packs/Day Years Used Date Smoking Tobacco: Never Assessed Sex Assigned at Date Recorded Not on file documented as of this encounter Plan of Treatment Not on filedocumented as of this encounter Procedures Procedure Name Priority Date/Time Associated Diagnosis Comme nts CYTOPATHOLOGY Routine 01/01/2004 0:00 EDT Results for this procedure are i n the results section . documented in this encounter Results CYTOPATHOLOGY (01/01/2004 0:00 EDT) Component Value Ref Test Analysis Performed At [facility] Pathology CYTOPATHOLOGY REPORT STEPHEN Report: [facility] Reports generated via electronic interface contain original data; however they are lacking the format of the original report. Caution should be taken when reading/interpreting unformatte d reports. Name: ? MERON RIVERA ? Accession #: ? [id number] : ? 1975 (Age: 28) ??F ?Collect Date: ? 01/01/2004 Location: ? [facility] ? Receive Date: ? 01/05/2004 Provider: ?KISHA ZABALA NP Copy to: ? Specimen/Source: ?ThinPrep Pap Test, Vagina/Cervix Last Menstrual Period: ? 12/12/03 Previous Gynecologic Pathology: ? ASC-US: 06/15 HSIL: 10/12 & 11/11 HPV: 11/12 Treatment History: ? Cryotherapy Other: ? HPVA - HPV testing requested if ASC-US on the current ThinPr ep Pap test. ? SPECIMEN ADEQUACY ? Satisfactory for Evaluation - transformation zone component present - scant squamous epithelial component secondary to excessive blood GENERAL CATEGORIZATION ? Negative for Intraepithelial Lesion or Malignancy INTERPRETATION ? Reactive cellular cristobal nges associated with inflammation present (includes repair). ? Document reviewed and electronically signed by: ? DAYO LOUIS MD ? Report Date: ??01/12/2004 15:30 End of Report Specimen (Source) Anatomical Location Collection Method / Collectio n Time Received Time / Laterality Volume 01/01/2004 01/05/2004 Kisha Zabala NP PATHOLOGY ORDERABLES Performing Organization Address City/State/ZIP Code Phon e Number [facility] [address] [place] [address] SERVICES [facility] [address] [place] [address] documented in this encounter Visit Diagnoses Not on filedocumented in this encounter Care Teams Rn Ccu Relationship Specialty Start Date End Date Fay Riddle MD PCP - General 07/21/09 [address] [place] [address] documented as of this encounter
--- OUTSIDE RECORDS SUMMARY | 2022-05-11 12:07 | XMS_ITS | Encounter Summary ---
:1975 Author Organization [facility] Address [address] [place] [address] Care Team Providers Name Role Phone Fay Riddle MD Primary Care Provider Encounter Details Date Type Department Care Team Description 12/29/2005 Results Only [facility] - Fay Moreno MD conversion [address] [facility] [address] [place] [address] [place], [place] [id number] [phone] Social History Tobacco Use Types Packs/Day Years Used Date Smoking Tobacco: Never Assessed Sex Assigned at Date Recorded Not on file documented as of this encounter Plan of Treatment Not on filedocumented as of this encounter Procedures Procedure Name Priority Date/Time Associated Diagnosis Comme nts CYTOPATHOLOGY Routine 12/29/2005 0:00 EDT Results for this procedure are i n the results section . documented in this encounter Results CYTOPATHOLOGY (12/29/2005 0:00 EDT) Component Value Ref Test Analysis Performed At [facility] Method Time Signature Pathology CYTOPATHOLOGY REPORT STEPHEN Report: [facility] Reports generated via electronic interface contain original data; however they are lacking the format of the original report. Caution should be taken when reading/interpreting unformatte d reports. Name: ? MERON RIVERA ? Accession #: ? [id number] : ? 1975 (Age: 30) ??F ?Collect Date: ? 12/29/2005 Location: ? [facility] ? Receive Date: ? 01/02/2006 Provider: ?FAY RIDDLE MD Copy to: ? Specimen/Source: ? ThinPrep Pap Test, Cervix/Endocervix, processed on [employer] ThinPrep Imaging System, with manual evaluation Last Menstrual Period: ? 12/15/05 Menstrual/ Status: ? Post Previous Gynecologic Pathology: ? NAFISA Treatment History: ? Cryotherapy Other: ? Additional clinical information: Aypical sq. cells 01/21/05 ? SPECIMEN ADEQUACY ? Satisfactory for Evaluation - transformation zone component present GENERAL CATEGORIZATION ? Epithelial Cell Abnormality INTERPRETATION ? Squamous Cell Abnormality - Atypical squamous cells, undetermined significance. EDUCATIONAL NOTES/RECOMMENDATIONS ? [facility] recommends estephanieo wing the 2001 Consensus Guidelines for the Management of Women with Cervical Cytological Abnormalities (MESSI,2002 ;287:2120-9). Management algorithms have b een distributed by [facility] and are available online at www.ASCCP.org. ? Document reviewed and electronically signed by: ? ONELIA HORVATH MD ? Report Date: ??01/05/2006 14:53 End of Report Specimen (Source) Anatomical Location Collection Method / Collectio n Time Received Time / Laterality Volume 12/29/2005 01/02/2006 Fay Riddle MD PATHOLOGY ORDERABLES Performing Organization Address City/State/ZIP Code Phon e Number [facility] [address] [place] [address] SERVICES [facility] [address] [place] [address] documented in this encounter Visit Diagnoses Not on filedocumented in this encounter Care Teams Security Coordinator Relationship Specialty Start Date End Date Fay Riddle MD PCP - General 07/21/09 [address] [place], [place] [id number] documented as of this encounter
--- OUTSIDE RECORDS SUMMARY | 2022-05-11 12:07 | XMS_ITS | Encounter Summary ---
:1975 Author Organization [facility] Address [address] [place] [address] Care Team Providers Name Role Phone Fay Riddle MD Primary Care Provider Encounter Details Date Type Department Care Team Description 12/12/2002 Results Only [facility] - Lio Walls MD conversion [address] [place] [address] Social History Tobacco Use Types Packs/Day Years Used Date Smoking Tobacco: Never Assessed Sex Assigned at Date Recorded Not on file documented as of this encounter Plan of Treatment Not on filedocumented as of this encounter Procedures Procedure Name Priority Date/Time Associated Diagnosis Comme [facility] SURGICAL PATHOLOGY Routine 12/12/2002 0:00 EDT Re sults for this procedure are i n the results section. documented in this encounter Results SURGICAL PATHOLOGY (12/12/2002 0:00 EDT) Component Value Ref Test Analysis Performed At [facility] Method Time Signature Pathology SURGICAL PATHOLOGY REPORT FORREST CONKLIN Report: Reports generated via electronic interface contain carlos l data; [facility] however they are lacking the format of the original report. Caution should be taken when reading/interpreting unformatte d reports. Name: ? MERON RIVERA ? Accession #: ? [id number] ? : ? 1975 (Age: 26) ??F ? Collect Date: ? 12/12/2002 ? Location: ? [facility] ? Receive Date: ? 12/14/2002 ? Provider: LIO MUSA MD Copy to: SANDY RIDDLE MD ? Final Pathologic Diagnosis: A. ?Cervix, 6 o' clock, biopsy: 1. 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 B. ?Cervix, 12 o' clock, biopsy: 1. ?Squamous metaplasia with parakeratosis. Document reviewed and electronically signed by: Joelle Barrios MD Report ??Date: 12/17/2002 16:56 By the signature above, the attending physician certifies th at he/she has personally conducted a gross and/or microscopic examin ation of the described specimens and rendered or confirmed the above diagnosis. Specimen(s) Received: A. ?Cx bx @ 6:00 B. ?Cx bx @ 12:00 Clinical History: ? 10/12 PAP ASCUS, + HPV Gross Description: ? Received in formalin labelled White and cx bx at 6:00 is a white-pink soft tissue fragment that measures 0.3 x 0.2 x 0.2 cm. ??The specimen is submitted entirely as (A). Received in formalin labelled White and cx bx at 12:00 i s a white soft tissue fragment that measures 0.3 x 0.3 x 0.1 cm . ??The specimen is submitted entirely as (B). ??(Dr. Randolph-BP)/tonja End of Report Specimen (Source) Anatomical Collection Method Collection Time Re ceived Time Location / / Volume Laterality 12/12/2002 12/14/2002 11:1 5 EDT Lio Musa MD PATHOLOGY ORDERABLES Performing Organization Address City/State/ZIP Code Phon e Number [facility] [address] [place] [address] SERVICES [facility] [address] [place] [address] documented in this encounter Visit Diagnoses Not on filedocumented in this encounter Care Teams Broacher Relationship Specialty Start Date End Date Fay Riddle MD PCP - General 07/21/09 [address] [place] [address] documented as of this encounter
--- OUTSIDE RECORDS SUMMARY | 2022-05-11 12:07 | XMS_ITS | Encounter Summary ---
:1975 Author Organization [facility] Address [address] [place] [address] Care Team Providers Name Role Phone Fay Riddle MD Primary Care Provider Encounter Details Date Type Department Care Team Description 11/02/2006 Results Only [facility] - Fay Moreno MD conversion [address] [facility] [address] [place] [address] [place], [place] [id number] [phone] Social History Tobacco Use Types Packs/Day Years Used Date Smoking Tobacco: Never Assessed Sex Assigned at Date Recorded Not on file documented as of this encounter Plan of Treatment Not on filedocumented as of this encounter Procedures Procedure Name Priority Date/Time Associated Diagnosis Comme nts CYTOPATHOLOGY Routine 11/02/2006 0:00 EDT Results for this procedure are i n the results section . documented in this encounter Results CYTOPATHOLOGY (11/02/2006 0:00 EDT) Component Value Ref Test Analysis Performed At [facility] Method Time Signature Pathology CYTOPATHOLOGY REPORT STEPHEN Report: [facility] Reports generated via electronic interface contain original data; however they are lacking the format of the original report. Caution should be taken when reading/interpreting unformatte d reports. Name: ? MERON RIVERA ? Accession #: ? [id number] : ? 1975 (Age: 30) ??F ?Collect Date: ? 11/02/2006 Location: ? [facility] ? Receive Date: ? 11/07/2006 Provider: ?FAY RIDDLE MD Copy to: ? Specimen/Source: ? ThinPrep Pap Test, Cervix/Endocervix, processed on [employer] ThinPrep Imaging System, with manual evaluation Last Menstrual Period: ? Currently Previous Gynecologic Pathology: ? ASC-US: 12/15 HPV: + known ? SPECIMEN ADEQUACY ? Satisfactory for Evaluation - transformation zone component present GENERAL CATEGORIZATION ? Negative for Intraepithelial Lesion or Malignancy INTERPRETATION ? Reactive cellular cristobal nges associated with inflammation present (includes repair). ? Document reviewed and electronically signed by: ? YAZ CESAR MD ? Report Date: ??11/10/2006 18:14 End of Report Specimen (Source) Anatomical Location Collection Method / Collectio n Time Received Time / Laterality Volume 11/02/2006 11/07/2006 Fay Riddle MD PATHOLOGY ORDERABLES Performing Organization Address City/State/ZIP Code Phon e Number [facility] [address] [place] [address] SERVICES [facility] [address] [place] [address] documented in this encounter Visit Diagnoses Not on filedocumented in this encounter Care Teams Rental Management Trainee Relationship Specialty Start Date End Date Fay Riddle MD PCP - General 07/21/09 [address] [place], [place] [phone] documented as of this encounter
--- OUTSIDE RECORDS SUMMARY | 2022-05-11 12:07 | XMS_ITS | Encounter Summary ---
:1975 Author Organization [facility] Address [address] [place] [address] Care Team Providers Name Role Phone Fay Riddle MD Primary Care Provider Encounter Details Date Type Department Care Team Description 07/11/2000 Results Only [facility] - Lio Walls MD conversion [address] [place] [address] Social History Tobacco Use Types Packs/Day Years Used Date Smoking Tobacco: Never Assessed Sex Assigned at Date Recorded Not on file documented as of this encounter Plan of Treatment Not on filedocumented as of this encounter Procedures Procedure Name Priority Date/Time Associated Diagnosis Comme nts CYTOPATHOLOGY Routine 07/11/2000 0:00 EST Results for this procedure are i n the results section . documented in this encounter Results CYTOPATHOLOGY (07/11/2000 0:00 EST) Component Value Ref Test [facility] Method Time Signature Pathology CYTOPATHOLOGY REPORT STEPHEN Report: [facility] Reports generated via electronic interface contain original data; however they are lacking the format of the original report. Caution should be taken when reading/interpreting unformatte d reports. Name: ? MERON RIVERA ? Accession #: ? [id number] : ? 1975 (Age: 24) ??F ?Collect Date: ? 07/11/2000 Location: ? [facility] ? Receive Date: ? 07/12/2000 Provider: ?LIO MUSA MD Copy to: ? Specimen/Source: ?ThinPrep Pap Test, Cervix/Endoce rvix Last Menstrual Period: ? 06/10/00 ? SPECIMEN ADEQUACY ? Satisfactory for evaluation. GENERAL CATEGORIZATION ? Benign Cellular Changes DESCRIPTIVE DIAGNOSIS ? Reactive cellular cristobal nges associated with inflammation present (includes repair). ? Document reviewed and electronically signed by: ? Regi Mora MD ? Report Date: ??07/24/2000 18:44 End of Report Specimen (Source) Anatomical Location Collection Method / Collectio n Time Received Time / Laterality Volume 07/11/2000 07/12/2000 Lio Musa MD PATHOLOGY ORDERABLES Performing Organization Address City/State/ZIP Code Phon e Number [facility] [address] [place] [address] SERVICES [facility] [address] [place] [address] documented in this encounter Visit Diagnoses Not on filedocumented in this encounter Care Teams Account Advisor Relationship Specialty Start Date End Date Fay Riddle MD PCP - General 07/21/09 [address] [place] [address] documented as of this encounter
--- OUTSIDE RECORDS SUMMARY | 2022-05-11 12:07 | XMS_ITS | Encounter Summary ---
:1975 Author Organization [facility] Address [address] [place] [address] Care Team Providers Name Role Phone Fay Riddle MD Primary Care Provider Encounter Details Date Type Department Care Team Description 03/24/2006 Results Only [facility] - Fay Moreno MD conversion [address] [place] [address] [place], [place] [id number] [phone] Social History Tobacco Use Types Packs/Day Years Used Date Smoking Tobacco: Never Assessed Sex Assigned at Date Recorded Not on file documented as of this encounter Plan of Treatment Not on filedocumented as of this encounter Procedures Procedure Name Priority Date/Time Associated Diagnosis Comme nts CYTOPATHOLOGY Routine 03/24/2006 0:00 EDT Results for this procedure are i n the results section . documented in this encounter Results CYTOPATHOLOGY (03/24/2006 0:00 EDT) Component Value Ref Test Analysis Performed At [facility] Method Time Signature Pathology CYTOPATHOLOGY REPORT STEPHEN Report: [facility] Reports generated via electronic interface contain original data; however they are lacking the format of the original report. Caution should be taken when reading/interpreting unformatte d reports. Name: ? MERON RIVERA ? Accession #: ? [id number] : ? 1975 (Age: 30) ??F ?Collect Date: ? 03/24/2006 Location: ? [facility] ? Receive Date: ? 03/28/2006 Provider: ?FAY RIDDLE MD Copy to: ? Specimen/Source: ? ThinPrep Pap Test, Cervix/Endocervix, processed on [employer] ThinPrep Imaging System, with manual evaluation Last Menstrual Period: ? Hormonal/Contraceptive Status: ? Tubal ligation Previous Gynecologic Pathology: ? ASC-US: 3 month ago Other: ? Additional clinical information: Pre eclampsia 12/15 ? SPECIMEN ADEQUACY ? Satisfactory for Evaluation - transformation zone component present GENERAL CATEGORIZATION ? Negative for Intraepithelial Lesion or Malignancy ? Document reviewed and electronically signed by: ? Ellen Do SCT(ASCP) ? Report Date: ??04/03/2006 07:31 End of Report Specimen (Source) Anatomical Location Collection Method / Collectio n Time Received Time / Laterality Volume 03/24/2006 03/28/2006 Fay Riddle MD PATHOLOGY ORDERABLES Performing Organization Address City/State/ZIP Code Phon e Number [facility] [address] [place] [address] SERVICES [facility] [address] [place] [address] documented in this encounter Visit Diagnoses Not on filedocumented in this encounter Care Teams Poultry Farmer Relationship Specialty Start Date End Date Fay Riddle MD PCP - General 07/21/09 [address] [place], [place] [id number] documented as of this encounter
--- OUTSIDE RECORDS SUMMARY | 2022-05-11 12:07 | XMS_ITS | Encounter Summary ---
:1975 Author Organization [facility] Address [address] [place] [address] Care Team Providers Name Role Phone Unavailable Primary Care Provider Unavailable Encounter Details Date Type Department Care Team Description 12/22/2000 Hospital Encounter [facility] - Fay Riddle MD [address] [place], [place] [address] Other Unknown, Provider, [address] [place], [place] [address] Social History Tobacco Use Types Packs/Day Years Used Date Smoking Tobacco: Never Assessed Sex Assigned at Date Recorded Not on file documented as of this encounter Discharge Disposition Disposition Code Departure Means Destination Auto Discharge documented in this encounter Plan of Treatment Pending Results Name Type Priority Associated Diagnoses Date/Ti ga CYTOPATHOLOGY Pathology Routine 05/06/2009 0:0 0 EST CYTOPATHOLOGY Pathology Routine 05/06/2009 0:0 0 EST SURGICAL PATHOLOGY Pathology Routine 0 0:00 EST SURGICAL PATHOLOGY Pathology Routine 0 0:00 EST Scheduled Orders Name Type Priority Associated Diagnoses Order S chedule CYTOPATHOLOGY Pathology Routine For medication s that can be administered at any time during the hospitalization for visit such as immuniz ations. for 1 Occurrences s tarting 05/08/2009 CYTOPATHOLOGY Pathology Routine For medication s that can be administered at any time during the hospitalization for visit such as immuniz ations. for 1 Occurrences s tarting 05/08/2009 SURGICAL PATHOLOGY Pathology Routine For medic ations that can be administered at any time during the hospitalization for visit such as immuniz ations. for 1 Occurrences s tarting 07/17/2009 SURGICAL PATHOLOGY Pathology Routine For medic ations that can be administered at any time during the hospitalization for visit such as immuniz ations. for 1 Occurrences s tarting 07/17/2009 documented as of this encounter Procedures Procedure Name Priority Date/Time Associated Comments Diagnosis SURGICAL PATHOLOGY Routine 07/17/2009 0:00 Result s for this EST procedure are i n the results section. HPV DETECTION, HIGH Routine 05/06/2009 13:22 Resu lts for this RISK TYPES EST procedure are i n the results section. CYTOPATHOLOGY Routine 05/06/2009 0:00 Results for this EST procedure are i n the results section. documented in this encounter Results SURGICAL PATHOLOGY (07/17/2009 0:00 EST) Component Value Ref Test Analysis Performed At [facility] gist Range Method Time Signature Pathology SURGICAL PATHOLOGY REPORT ? HONEY HER Report: Reports generated via electr [employer]System[employer] interface contain original data; ? [facility] however they are lacking the format of the original report. ? Caution should be taken when reading/interpreting unformatted reports. ? Name: ? MERON RIVERA ? Accession #: ? [id number] ? : ? 1975 (Age: 33) ??F ? Collec t Date: ? 07/17/2009 ? Location: ? [facility] ? R eceive Date: ? 07/17/2009 ? Provider: TAISHA S LINDA MD ? Copy to: AKANKSHA WHITLOCK CHANNEL REBUILDER ? Final Pathologic Diagnosis: ? Ovary, left, oophorec emelina: ? 1. ?Benign hemo rrhagic cyst with organizing thrombus material. ??See ? comment. ? 2. ? Benign ovarian pare nchyma with multiple follicular cysts. ??See comment. ? Comment: ? The benign hemorrhagi c cyst is filled with fibrin and blood byproducts. No definitive epithelial lining is apparent, precluding accurate classification of this cyst. This case has bee n reviewed at the intradepartmental consensus ? conference. (Dr. Perez) /mpl ? Document reviewed and electr onically signed by: ? MANJEET PEREZ MD ? Report ??Date: 07/21/2009 18 :04 ? By the signature above, the attending physician certifies that he/she has ? personally conducted a gross and/or microscopic examination of the described ? specimens and rendered or co nfirmed the above diagnosis. ? Specimen(s) Received: ? Left ovary ? Clinical History: ? Solid left ovarian ma ss ? Gross Description: ? Received in formalin labelled White, Meron and left ovary is a 4.0 x 2.5 x 1.7 cm, 9.9 gram ovary . ??The outer surface is cui-white and smooth, with ?? focal hyperemia. ??Sections reveal a 3.2 x 2.2 x 1.8 cm solid, cui-yellow, ? partially hemorrhagic mass t hat abuts the outer surface of the ovary. ??The ? uninvolved stroma is cui-whi te, heterogeneous, and contains multiple cysts, ? averaging 0.3 cm in diameter . ??Director Of Group Counseling Program sections (approximately 70%) of ?? the ovary are submitted as ( A1) through (A4). ??(Dr. Medrano)/arthur ? End of Report ? Specimen (Source) Anatomical Collection Method Collection Time Re ceived Time Location / / Volume Laterality 07/17/2009 07/17/2009 19:2 9 EST Taisha Mackenzie MD PATHOLOGY ORDERABLES Performing Organization Address City/State/ZIP Code Phon e Number [facility] [address] [place] [address] SERVICES [facility] [address] [place] [address] HUMAN PAPILLOMA VIRUS DNA TEST (05/06/2009 13:22 EST) [facility] gist Method Time Signature Specimen Cervix, MITCHELL Description ThinPrep [facility] vial Result Negative for STEPHEN HPV types [facility] 16, 18, 31, 33, 35, 39, 45, 51, 52, 56, 58, 59, and 68. Report Status Final STEPHEN 05/19/2009 [facility] Specimen Anatomical Collection Method Collection Time Receive d Time (Source) Location / / Volume Laterality 05/06/2009 13:22 05/14/2009 EST 13:22 EST Kisha Zabala NP MICROBIOLOGY - GENERAL ORDER DAYANNA Performing Organization Address City/State/ZIP Code Phon e Number [facility] [address] [place] [address] SERVICES [facility] [address] [place] [address] CYTOPATHOLOGY (05/06/2009 0:00 EST) Component Value Ref Test Analysis Performed At [facility] Range Method Time Signature Pathology CYTOPATHOLOGY REPORT ? MITCHELL Report: ? [facility] Reports generated via [employer] interface contain original data; ? however they are lacking the format of the original report. ? Caution should be taken when reading/interpreting unformatted reports. ? Name: ? MERON RIVERA ? Accession #: ? [id number] ? : ? 1975 (Age: 33) ??F ?Collect Date: ? 05/06/2009 ? Location: ? [facility] ? Receive Date: ? 05/08/2009 ? Provider: ?KISHA W BESCH CHANNEL REBUILDER ? Copy to: ? Specimen/Source: ? Pap Test, Cervix/Endocervix, ThinPrep Imaging System ? with manual evaluation ? Last Menstrual Period: ? 11/5/09 ? Previous Gynecologic Patholo gy: ? ASC-US ? Other: ? HPVDX - HPV testing requeste d regardless of diagnosis on current ThinPrep Pap ?? test. ? SPECIMEN ADEQUACY ? Satisfactory for Eval uation ? - transformation zone compon ent present ? - scant squamous epithelial component secondary to excessive blood ? GENERAL CATEGORIZATION ? Negative for Intraepi thelial Lesion or Malignancy ? Document reviewed and electr onically signed by: ? Jm N. Darci, CT (ASCP) ? Report Date: ??12/02/ 2009 12:09 ? End of Report ? Specimen (Source) Anatomical Location Collection Method / Collectio n Time Received Time / Laterality Volume 05/06/2009 05/08/2009 Kisha Zabala NP PATHOLOGY ORDERABLES Performing Organization Address City/State/ZIP Code Phon e Number [facility] [address] [place] [address] SERVICES [facility] [address] [place] [address] documented in this encounter Visit Diagnoses Not on filedocumented in this encounter
== END 2022-05-11 12:20 ==
LOC: DI 12:02
PROVIDERS: PCP Nurse Practitioner Family; Visit Provider Nurse Practitioner Family
DX: R05.8 Other specified cough (principal)
CPT/HCPCS: 71046

== ENCOUNTER 2022-05-24 10:53 | Emergency (ER) | payer MEDICARE, SELFPAY ==
[2022-05-24 10:57] VITALS: BP 100/64; PULSE 136; RESP 24; TEMP 36.9; O2SAT 97
--- NOTE | 2022-05-24 11:15 | ED.GENADUL_ITS ---
Discharge Plan Disposition Patient Disposition: Home Condition: Stable Discharge Details Clinical Impression: RSV (respiratory syncytial virus infection), Asthma exacerbation Primary Care Provider: Clair Turner ED Provider: Elian Hines Home Meds and New Rx's Prescriptions: New prednisone 20 mg tablet 60 mg PO DAILY 4 Days Qty: 12 0RF Continued lisinopril 20 mg tablet 20 mg PO DAILY magnesium oxide 500 mg tablet 500 mg PO BID hydroxyzine HCl 25 mg tablet 25 mg PO BID PRN budesonide-formoterol [Symbicort] 160-4.5 mcg/actuation HFA aerosol inhaler 1 puff IH BID rizatriptan 10 mg tablet 10 mg PO ONCE epinephrine [EpiPen 2-Ho] 0.3 mg/0.3 mL auto-injector 0.3 mg IM ONCE omeprazole 40 mg capsule,delayed release(DR/EC) 40 mg PO DAILY duloxetine [Cymbalta] 60 mg capsule,delayed release(DR/EC) 60 mg PO DAILY multivitamin Tablet 1 tab PO DAILY fluticasone propion-salmeterol [Advair Diskus] 500-50 mcg/dose blister with device 1 inh inhalation BID valacyclovir 500 mg tablet 500 mg PO DAILY albuterol sulfate [Ventolin HFA] 60 PUFF HFA aerosol inhaler 2 puff Inhalation Q4H PRNQty: 1 0RF Discharge Instructions Instructions: Asthma (ED) Additional Instructions: you tested positive for RSV which is likely making your asthma act up follow up with your primary care provider within 1 week if you feel more ill, have worsening trouble breathing or persistent vomiting return to the emergency department Medical Decision Making 46 yo female with hx of asthma who states she is a former smoker, htn, who comes in with chief complaint of body aches, cough, and subjective fevers/chills that started this morning. She denies having symptoms yesterday, no n/v, no chest pain/pressure. She has not travelled recently. She arrives mildly tachycardic, stable bp and oxygen saturation. She has wheezing in all lung calles bilaterally. No jvd, no leg swelling, no calf tenderness, no murmurs. She has no throat pain. Her symptoms do seem most consistent with viral illness with asthma exacerbation, will obtain cbc, cmp, fluvid and also cxr and treat with duoneb and steroids and reassess. No evidence of dvt, no pleuritic chest pain and no hypoxia to suggest pe and no chest pain/pressure to suggest acs, no evidence of chf on exam either. pt feels improved though states she has a mild frontal migraine that she states she gets frequently, denies it being the worst of her life and it started sl owly, still caox4, no focal deficits, CNII-XII intact without meningismus. Suspect migraine, will treat with compazine and tylenol as she has an ibuprofen allergy, history and exam not consistent with hemorrhage or computer repair technician infection. She still has wheezing on exam at the bases, is rsv positive so suspect asthma exacerbation due to this. will treat with another duoneb pt stable, sleeping on reassessment and awakens easily to voice and she state she feels better and lungs now clear,Will place on prednisone and advised to f/u with pcp, return precautions given Differential Diagnosis Differential Diagnosis: asthma, flu, covid, pneumonia Medical Records Medical records reviewed: Yes I reviewed the patient's medical records. Imaging Data Radiologic Study: Attestation: I personally reviewed and interpreted this imaging study as follows: Imaging: X-Ray My impression: no acute findings Lab Data Lab results reviewed: Yes I reviewed the patient's lab results. Sign Out No HPI General Mode of arrival: ambulatory . Date/Time Provider Initiated Documentation: 05/24/22 10:55 . Limitations to Documentation: no limitations . Information obtained by: patient . History of Present Illness 46 year old F presents to the emergency department with the chief complaint of cough, described as moderate, Patient started experiencing this hour(s) (3) and it has been constant. No relieving factors improve symptom(s), No exacerbating factors reported . Patient notes fever/chills and other (body aches). Patient did receive the following treatments prior to arrival, none Related Data Home Medications Medication Instructions Recorded Confirmed albuterol sulfate 90 mcg/actuation 2 puff inhalation Q4H PRN #1 inh 06/29/17 05/22/20 aerosol inhaler (Ventolin HFA) budesonide-formoterol HFA 160 1 puff inhalation BID 04/09/19 05/22/20 mcg-4.5 mcg/actuation aerosol inhaler (Symbicort) duloxetine 60 mg capsule,delayed 60 mg PO DAILY 04/09/19 05/22/20 release (Cymbalta) epinephrine 0.3 mg/0.3 mL 0.3 mg IM ONCE 04/09/19 05/22/20 injection, auto-injector (EpiPen 2-Ho) hydroxyzine HCl 25 mg tablet 25 mg PO BID PRN 04/09/19 05/22/20 lisinopril 20 mg tablet 20 mg PO DAILY 04/09/19 05/22/20 magnesium oxide 500 mg tablet 500 mg PO BID 04/09/19 05/22/20 omeprazole 40 mg capsule,delayed 40 mg PO DAILY 04/09/19 05/25/20 release rizatriptan 10 mg tablet 10 mg PO ONCE 04/09/19 05/22/20 fluticasone 500 mcg-salmeterol 50 1 inh inhalation BID 02/28/20 05/22/20 mcg/dose blistr powdr for inhalation (Advair Diskus) multivitamin 1 tab PO DAILY 02/28/20 05/25/20 valacyclovir 500 mg tablet 500 mg PO DAILY 02/28/20 05/25/20 prednisone 20 mg tablet 60 mg PO DAILY 4 days #12 tabs 05/24/22 Previous Rx's Medication Instructions Recorded albuterol sulfate 90 mcg/actuation 2 puff inhalation Q4H PRN #1 inh 06/29/17 aerosol inhaler (Ventolin HFA) prednisone 20 mg tablet 60 mg PO DAILY 4 days #12 tabs 05/24/22 Allergies Allergy/AdvReac Type Severity Reaction Status Date / Time codeine Allergy Severe itching Unverified 05/25/20 07:13 really bad ibuprofen Allergy Severe Hives, Unverified 05/25/20 07:13 throat swelling bee venom protein (honey bee) Allergy Intermediate Swelling/Ed Unverified 05/25/20 07:13 hermelinda Penicillins AdvReac Severe Nausea Unverified 05/25/20 07:13 orange (food color) AdvReac Intermediate nauseous Unverified 05/25/20 07:13 orange flavor AdvReac Intermediate Nausea Unverified 05/25/20 07:13 General Stated Complaint: RespSymp LYN: 3 Review of Systems All systems reviewed & are unremarkable except as noted in HPI and below Constitutional Constitutional: Denies weakness Cardiovascular Cardiovascular: Denies chest pain Gastrointestinal Gastrointestinal: Denies abdominal pain and Denies vomiting Genitourinary Genitourinary: Denies dysuria Integumentary/Breasts Skin/Breast: Denies rash Neurologic Neurologic: Denies weakness PFSH All Active Problems (Updated 05/24/22 @ 14:07 by Elian Hines MD) RSV (respiratory syncytial virus infection) (Acute) Asthma exacerbation (Acute) Hyperplastic colon polyp (Acute) BMI 34.0-34.9,adult (Acute) Smoker (Acute) Peripheral ossifying fibroma of gingivae (Acute) Medical History (Updated 05/24/22 @ 14:07 by Elian Hines MD) Acid reflux Adenomatous colon polyp Anxiety Bilateral leg cramps Carpal tunnel syndrome Chronic low back pain Chronic pain syndrome COPD (chronic obstructive pulmonary disease) Dental disorder Depression Dysmenorrhea Genital herpes Hypertension Migraine PTSD (post-traumatic stress disorder) Rib pain on left side TMJ arthritis Surgical History Ligation of fallopian tube Rotator Cuff Repair wrist Family History Maternal Aunt Neoplasm uterine cancer Mother Heart disease Father Diabetes Heart disease Thyroid condition Social History Smoking/Tobacco Use Status: Current every day Smoking risk assessment performed?: Yes Alcohol Intake: never Drug use: Daily Substance use type: marijuana Do you feel safe at home: Yes Do you feel safe in your relationship?: Yes Exam Const General: no acute distress Orientation: alert HENMT Head: normal to inspection Ears: external ears normal General nose exam: external nose normal Mouth: moist mucous membranes Eyes General: appearance normal, both eyes and all related structures Neck Neck: normal visual inspection Resp Effort & Inspection: normal respiratory effort, able to speak in complete sentences and audible wheezes Cardio Jugular venous pressure: no JVD Rate: tachycardic Heart Sounds: no murmurs GI Palpation: soft and nontender Skin General skin exam: no rashes or lesions noted Neuro General: patient alert and patient oriented x3 Extrem General: normal to inspection Psych Mental Status: mental status grossly normal Course Vital Signs Vital signs: Vital Signs Temperature 36.9 C 05/24/22 10:57 Pulse 136 H 05/24/22 10:57 Respiratory Rate 24 05/24/22 10:57 Blood Pressure 100/64 05/24/22 10:57 Pulse Oximetry 97 05/24/22 10:57 Temperature 36.9 C 05/24/22 10:57 Temperature Source Oral 05/24/22 10:57 Pulse 136 H 05/24/22 10:57 Respiratory Rate 24 05/24/22 10:57 Blood Pressure 100/64 05/24/22 10:57 Blood Pressure Position Sitting 05/24/22 10:57 Pulse Oximetry 97 05/24/22 10:57 Oxygen Delivery Method Room Air 05/24/22 10:57 Oxygen Flow Rate 0 05/24/22 10:57 Pain Level 10 05/24/22 10:57
--- NOTE | 2022-05-24 11:15 | DI.RAD_ITS ---
Exam(s) XR PORTABLE CHEST AP EXAM: XR PORTABLE CHEST AP CLINICAL HISTORY: cough TECHNIQUE: 2D digital imaging was performed of the chest. One image was obtained. An AP view was ob tained. COMPARISON: CR XR CHEST 2V PA LATERAL from 05/11/2022 FINDINGS: MEDIASTINUM: Normal. HEART: Normal. PULMONARY VASCULATURE: Normal. LUNGS: Clear. PLEURAL SPACE: No pleural effusion or pneumothorax. BONE:Within normal limits for the patient's age. OTHER FINDINGS:Normal. IMPRESSION: No acute pulmonary findings. DATA REPOSITORY: RADIATION DOSE DELIVERED:
[2022-05-24 11:35] VITALS: PULSE 112; RESP 18; O2SAT 92
[2022-05-24] MEDS: Albuterol/Ipratropium 3 ML UPD VIAL UPD ×2 (11:35→12:44)
[2022-05-24] MEDS: methylPREDNISolone SUCC 125 MG VIAL IVP (11:35)
[2022-05-24 11:40] LABS: Abs Immature Grans 0.03 10^3/uL (0.0-0.06); Absolute Basophil Count 0.02 10^3/uL (0.0-0.2); Absolute Eosinophil Count 0.12 10^3/uL (0.0-0.7); Absolute Lymphocyte Count 1.02 10^3/uL (1.2-3.4); Absolute Monocyte Count 0.98 10^3/uL (0.1-0.8); Absolute Neutrophil Count 6.28 10^3/uL (1.2-6.7); Basophils % 0.2; Eosinophils % 1.4; HCT 39.9 % (36.0-46.0); HGB 12.8 g/dL (11.2-15.7); Immature Grans % 0.4; Lymphocytes % 12.1; MCH 27.9 pg (27.0-33.0); MCHC 32.1 % (32.0-36.0); MCV 87 fL (80-95); MPV 11.4 fL (8.0-11.0); Monocytes % 11.6; Neutrophils % 74.3; Platelet Count 242 10^3/uL (130-400); RBC 4.58 10^6/uL (3.93-5.22); RDW 13.3 % (11.7-14.6); RDW-SD 42.8 fL; WBC 8.45 10^3/uL (4.4-10.8)
[2022-05-24] MEDS: Normal Saline 1,000 ML 1000 ML IV (11:46)
[2022-05-24 11:54] LABS: ALT 33 U/L (14-59); AST 26 U/L (15-37); Albumin 3.6 g/dL (3.4-5.0); Alkaline Phosphatase 89 U/L (46-116); BUN 11 mg/dL (7-18); Bilirubin, Total 0.5 mg/dL (0.2-1.0); CREATININE 1.2 mg/dL (0.55-1.02); Calcium 8.8 mg/dL (8.5-10.1); Chloride 98 mmol/L (98-107); Estimated GFR 56.89 (mL/min/1.73m2); Glucose 118 mg/dL (74-106); Magnesium 1.9 mg/dL (1.8-2.4); Potassium 4.2 mmol/L (3.5-5.1); Sodium 132 mmol/L (136-145); Total Protein 7.9 g/dL (6.4-8.2)
[2022-05-24 12:16] LABS: COVID-19 PCR Negative (Negative); Influenza A PCR Negative (Negative); Influenza B PCR Negative (Negative)
[2022-05-24 12:17] LABS: Source Nasopharynx
[2022-05-24 12:21] LABS: RSV PCR Positive (Negative)
[2022-05-24] MEDS: Prochlorperazine 10 MG/2 ML VIAL IVP (12:43)
[2022-05-24 12:44] VITALS: PULSE 121; RESP 4; O2SAT 96
[2022-05-24] MEDS: ACETAMINOPHEN 1,000 MG/100 ML BTL 400 MG IVPB (12:44)
[2022-05-24 14:13] VITALS: BP 110/67; PULSE 120; TEMP 37; O2SAT 92
== END 2022-05-24 14:21 | disposition home or self-care (01) ==
PROVIDERS: Emergency Provider Emergency Medicine; PCP Nurse Practitioner Family
DX: J44.9 Chronic obstructive pulmonary disease, unspecified (principal); J45.901 Unspecified asthma with (acute) exacerbation; B97.4 Respiratory syncytial virus as the cause of diseases classified elsewhere; I10 Essential (primary) hypertension; Z87.891 Personal history of nicotine dependence; Z20.822 Contact with and (suspected) exposure to COVID-19
CPT/HCPCS: 80053; 87637; 96361; 96374; 96375; 99283; 99284; 71045; 83735; 85025; J0131; J0780; J2930; J7620

== ENCOUNTER 2022-06-01 13:57 | Emergency (ER) | payer MEDICARE, SELFPAY ==
[2022-06-01 14:02] VITALS: BP 113/74; PULSE 86; RESP 18; TEMP 36.8; O2SAT 98
--- NOTE | 2022-06-01 14:29 | ED.GENADUL_ITS ---
Discharge Plan Disposition Patient Disposition: Home Condition: Stable Discharge Details Clinical Impression: Acute otitis media, right Primary Care Provider: Clair Turner ED Provider: Robson Monahan Home Meds and New Rx's Prescriptions: New doxycycline hyclate 100 mg tablet 100 mg PO BID Qty: 19 0RF No Action lisinopril 20 mg tablet 20 mg PO DAILY magnesium oxide 500 mg tablet 500 mg PO BID hydroxyzine HCl 25 mg tablet 25 mg PO BID PRN budesonide-formoterol [Symbicort] 160-4.5 mcg/actuation HFA aerosol inhaler 1 puff IH BID rizatriptan 10 mg tablet 10 mg PO ONCE epinephrine [EpiPen 2-Ho] 0.3 mg/0.3 mL auto-injector 0.3 mg IM ONCE omeprazole 40 mg capsule,delayed release(DR/EC) 40 mg PO DAILY duloxetine [Cymbalta] 60 mg capsule,delayed release(DR/EC) 60 mg PO DAILY multivitamin Tablet 1 tab PO DAILY fluticasone propion-salmeterol [Advair Diskus] 500-50 mcg/dose blister with device 1 inh inhalation BID valacyclovir 500 mg tablet 500 mg PO DAILY albuterol sulfate [Ventolin HFA] 60 PUFF HFA aerosol inhaler 2 puff Inhalation Q4H PRNQty: 1 0RF Discharge Instructions Instructions: Ear Infection (ED) Additional Instructions: Medication reconciliation could not be performed today. Please take your medication as prescribed. Please take full course of antibiotic as prescribed. Please take acetaminophen (tylenol) - 650mg every 6 hours by mouth as needed for pain. Please contact your primary care physician to arrange follow-up. Return to the ER immediately for any worsening or new concerning symptoms. Referrals: Clair Turner [Primary Care Provider] - Medical Decision Making 46-year-old female with recent respiratory illness, cough improving over the past week, now with 3 days of worsening right ear pain. Patient has findings consistent with acute otitis media on examination. Patient has ibuprofen and penicillin allergy. I will initiate treatment with doxycycline and Tylenol. Initial dose of antibiotic was provided. Usual customary discharge instructions reviewed with the patient. HPI General Mode of arrival: ambulatory . Date/Time Provider Initiated Documentation: 06/01/22 14:24 . Limitations to Documentation: no limitations . Information obtained by: patient . History of Present Illness 46 year old F presents to the emergency department with the chief complaint of rt ear pain, described as severe, Quality is described as sharp, and is localized to the right (inner ear). Patient reports no radiation. Patient started experiencing this day(s) (3) and it has been constant. No relieving factors improve symptom(s), No exacerbating factors reported . Patient notes cough; denies fever/chills. Patient did receive the following treatments prior to arrival, none Related Data Home Medications Medication Instructions Recorded Confirmed albuterol sulfate 90 mcg/actuation 2 puff inhalation Q4H PRN #1 inh 06/29/17 05/22/20 aerosol inhaler (Ventolin HFA) budesonide-formoterol HFA 160 1 puff inhalation BID 04/09/19 05/22/20 mcg-4.5 mcg/actuation aerosol inhaler (Symbicort) duloxetine 60 mg capsule,delayed 60 mg PO DAILY 04/09/19 05/22/20 release (Cymbalta) epinephrine 0.3 mg/0.3 mL 0.3 mg IM ONCE 04/09/19 05/22/20 injection, auto-injector (EpiPen 2-Ho) hydroxyzine HCl 25 mg tablet 25 mg PO BID PRN 04/09/19 05/22/20 lisinopril 20 mg tablet 20 mg PO DAILY 04/09/19 05/22/20 magnesium oxide 500 mg tablet 500 mg PO BID 04/09/19 05/22/20 omeprazole 40 mg capsule,delayed 40 mg PO DAILY 04/09/19 05/25/20 release rizatriptan 10 mg tablet 10 mg PO ONCE 04/09/19 05/22/20 fluticasone 500 mcg-salmeterol 50 1 inh inhalation BID 02/28/20 05/22/20 mcg/dose blistr powdr for inhalation (Advair Diskus) multivitamin 1 tab PO DAILY 02/28/20 05/25/20 valacyclovir 500 mg tablet 500 mg PO DAILY 02/28/20 05/25/20 doxycycline hyclate 100 mg tablet 100 mg PO BID #19 tabs 06/01/22 Previous Rx's Medication Instructions Recorded albuterol sulfate 90 mcg/actuation 2 puff inhalation Q4H PRN #1 inh 06/29/17 aerosol inhaler (Ventolin HFA) doxycycline hyclate 100 mg tablet 100 mg PO BID #19 tabs 06/01/22 Allergies Allergy/AdvReac Type Severity Reaction Status Date / Time codeine Allergy Severe itching Unverified 05/25/20 07:13 really bad ibuprofen Allergy Severe Hives, Unverified 05/25/20 07:13 throat swelling bee venom protein (honey bee) Allergy Intermediate Swelling/Ed Unverified 05/25/20 07:13 hermelinda Penicillins AdvReac Severe Nausea Unverified 05/25/20 07:13 orange (food color) AdvReac Intermediate nauseous Unverified 05/25/20 07:13 orange flavor AdvReac Intermediate Nausea Unverified 05/25/20 07:13 General Stated Complaint: EarProblem LYN: 4 Review of Systems Constitutional Constitutional: Denies fever(s) ENT Ears, Nose, Mouth, and Throat: Reports as per HPI Cardiovascular Cardiovascular: Denies chest pain Respiratory Respiratory: Reports cough (recent respiratory illness with cough, improving ) PFSH All Active Problems RSV (respiratory syncytial virus infection) (Acute) Asthma exacerbation (Acute) Acute otitis media, right (Acute) Hyperplastic colon polyp (Acute) BMI 34.0-34.9,adult (Acute) Smoker (Acute) Peripheral ossifying fibroma of gingivae (Acute) Medical History Acid reflux Adenomatous colon polyp Anxiety Bilateral leg cramps Carpal tunnel syndrome Chronic low back pain Chronic pain syndrome COPD (chronic obstructive pulmonary disease) Dental disorder Depression Dysmenorrhea Genital herpes Hypertension Migraine PTSD (post-traumatic stress disorder) Rib pain on left side TMJ arthritis Surgical History Ligation of fallopian tube Rotator Cuff Repair wrist Family History Maternal Aunt Neoplasm uterine cancer Mother Heart disease Father Diabetes Heart disease Thyroid condition Social History Smoking/Tobacco Use Status: Current every day Smoking risk assessment performed?: Yes Alcohol Intake: never Drug use: Daily Substance use type: marijuana Do you feel safe at home: Yes Do you feel safe in your relationship?: Yes Exam Const General: cooperative and no acute distress HENMT Head: normocephalic and atraumatic Ears: external ears normal, TM normal on the left, no periauricular adenopathy and TM abnormal (right) bulging and erythematous General nose exam: external nose normal Mouth: moist mucous membranes Throat: posterior oropharynx normal Eyes Conjunctivae: normal conjunctivae Sclera: normal sclerae Neck Neck: trachea midline and supple Resp Auscultation: clear to auscultation bilaterally, no rales, no rhonchi and no wheezes Cardio Rate: regular rate and not tachycardic Rhythm: regular rhythm Course Vital Signs Vital signs: Vital Signs Temperature 36.8 C 06/01/22 14:02 Pulse 86 06/01/22 14:02 Respiratory Rate 18 06/01/22 14:02 Blood Pressure 113/74 06/01/22 14:02 Pulse Oximetry 98 06/01/22 14:02 Temperature 36.8 C 06/01/22 14:02 Temperature Source Tympanic 06/01/22 14:02 Pulse 86 06/01/22 14:02 Respiratory Rate 18 06/01/22 14:02 Respiratory Effort 06/01/22 14:05 Blood Pressure 113/74 06/01/22 14:02 Pulse Oximetry 98 06/01/22 14:02 Oxygen Delivery Method Room Air 06/01/22 14:02 Oxygen Flow Rate 0 06/01/22 14:02 Pain Level 10 06/01/22 14:02
[2022-06-01] MEDS: Acetaminophen 325 MG TAB 650 MG PO (14:35)
[2022-06-01] MEDS: Doxycycline Hyclate 100 MG CAP PO (14:35)
== END 2022-06-01 14:36 | disposition home or self-care (01) ==
PROVIDERS: Emergency Provider Student in an Organized Health Care Education/Training Program; PCP Nurse Practitioner Family
DX: H66.91 Otitis media, unspecified, right ear (principal); I10 Essential (primary) hypertension; J44.9 Chronic obstructive pulmonary disease, unspecified; Z79.51 Long term (current) use of inhaled steroids; Z79.899 Other long term (current) drug therapy
CPT/HCPCS: 99283; 99284

== ENCOUNTER 2022-08-16 13:59 | Outpatient (REF) | payer MEDICARE, SELFPAY ==
--- NOTE | 2022-08-16 09:00 | PAPFT_PTH ---
PATIENT: Meron Kasper LOC: [facility]#:[id number] AGE/SX: 46/F ROOM: RE08/16/[address]: Clair Turner : 1975 BED: DIS: 08/16/2022 SPEC #: [id number] RECD: 08/16/22 17:08 STATUS: CATRACHITA RESiddharth #: [id number] ABBIE: 08/16/22 09:[address]: Clair Turner DEPT: [facility] Cytology RECD BY: Ivelisse Huertas Tissues: 1 - CX/ENDOCX FOR PAP SMEARS Procedures: PAP THIN PREP/UVM Screening HPV DNA PROBE Comments: [id number]
[2022-08-16 16:54] LABS: HGB 11.9 g/dL (11.2-15.7); MCHC 31.3 % (32.0-36.0); MCV 86 fL (80-95); MPV 11.5 fL (8.0-11.0); Platelet Count 295 10^3/uL (130-400); RBC 4.41 10^6/uL (3.93-5.22); RDW 14.1 % (11.7-14.6); RDW-SD 44.2 fL; WBC 5.99 10^3/uL (4.4-10.8)
[2022-08-16 17:28] LABS: Anion Gap 8.3 mmol/L (3-11); BUN 8 mg/dL (7-18); CO2 31.7 mmol/L (21.0-32.0); Calcium 9.2 mg/dL (8.5-10.1); Chloride 99 mmol/L (98-107); Glucose 66 mg/dL (74-106); Potassium 4.2 mmol/L (3.5-5.1); Sodium 139 mmol/L (136-145)
[2022-08-16 18:25] LABS: Iron 23 ug/dL (50-170); Total Iron Binding Capacity 358 ug/dL (250-450); Transferrin Sat 6 % (15-50)
== END 2022-08-16 14:00 | disposition home or self-care (01) ==
LOC: NCHCN 13:59
PROVIDERS: PCP Nurse Practitioner Family; Visit Provider Nurse Practitioner Family
DX: D50.9 Iron deficiency anemia, unspecified (principal); E83.42 Hypomagnesemia; I10 Essential (primary) hypertension; Z11.51 Encounter for screening for human papillomavirus (HPV); Z01.419 Encounter for gynecological examination (general) (routine) without abnormal findings
CPT/HCPCS: 80048; 85027; 88142; 83540; 83550; 83735; 87624

== ENCOUNTER 2022-10-03 00:38 | Outpatient (CLI) | payer MEDICARE, SELFPAY ==
--- NOTE | 2022-10-03 07:30 | DI.US_ITS ---
Exam(s) US PELVIS TRANSVAGINAL EXAM: US PELVIS TRANSVAGINAL CLINICAL HISTORY: anatomy,heavy menses,n92.0. TECHNIQUE: Transabdominal and transvaginal pelvic ultrasound was performed using standard protocol. COMPARISON: US PELVIS TRANSVAG from 08/09/2017 FINDINGS: UTERUS: Position: Anteverted. Size: 8.1 long by 4.1 AP by 4.5 transverse cm Endometrium: 0.6 cm. Normal for patient's menstrual status. Myometrium: Unremarkable. Cervix: Unremarkable. OVARIES: The left ovary was not visualized transabdominally or transvaginally. No left adnexal donnie s are seen sonographically. Right: 2.2 x 1.9 x 1.9 cm Cyst or mass: There is a 4.2 x 2.7 x 3.2 cm complex cystic lesion adjacent to or arising from the rig ht ovary. There is a 2.0 x 1.4 x 1.6 cm cyst on the right ovary. DOPPLER: Color: There is blood flow seen to the right ovary. CUL-DE-SAC: Free fluid: None. Other: None. IMPRESSION: 1. Normal-appearing uterus with endometrial stripe within normal limits. 2. The left ovary was not visualized transabdominally or transvaginally. No left adnexal mass is see n. 3. 4.2 x 2.7 x 3.2 cm complex cystic lesion arise from or adjacent to the right ovary. An MRI of the pelvis without and with contrast may be considered for further evaluation. A follow-up pelvic ultra sound in 6 weeks may be obtained prior to the MRI to see if the right adnexal/ovarian cysts have reso lved or decreased in size first. DATA REPOSITORY:
== END 2022-10-03 00:58 ==
LOC: DI 00:39
PROVIDERS: PCP Nurse Practitioner Family; Visit Provider Obstetrics & Gynecology
DX: N92.0 Excessive and frequent menstruation with regular cycle (principal)
CPT/HCPCS: 76830; 76856

== ENCOUNTER 2022-11-04 17:09 | Emergency (ER) | payer MEDICARE, SELFPAY ==
[2022-11-04 17:15] VITALS: BP 137/92; PULSE 108; RESP 15; TEMP 37.2; O2SAT 96
--- NOTE | 2022-11-04 17:56 | NUR.NOTE ---
Nursing Note: Pt left without being seen.
== END 2022-11-04 17:26 | disposition left against medical advice (07) ==
LOC: ER 17:11
PROVIDERS: PCP Nurse Practitioner Family
DX: Z53.21 Procedure and treatment not carried out due to patient leaving prior to being seen by health care provider (principal)

== ENCOUNTER 2023-01-14 15:58 | Emergency (ER) | payer MEDICARE, SELFPAY ==
[2023-01-14] VITALS (46 sets, daily range): BP systolic 136–152; BP diastolic 84–107; PULSE 68–93; RESP 9–23; TEMP 36.8; O2SAT 94–100
--- NOTE | 2023-01-14 16:00 | RT.EKG_ITS ---
APPROVED REPORT Exam: Resting ECG Reason for Exam: chest pain Patient Location: E HR:89 bpm ECG Measurements Heart Rate 89 AXIS NM 146 P 37 QRSd 69 QRS 22 QT 335 T 20 QTc 409 Conclusion Sinus rhythm... V-rate 60- [address] segment or T wave abnormalities to suggest occlusive PR
[2023-01-14 17:05] LABS: Abs Immature Grans 0.02 10^3/uL (0.0-0.06); Absolute Basophil Count 0.02 10^3/uL (0.0-0.2); Absolute Eosinophil Count 0.06 10^3/uL (0.0-0.7); Absolute Lymphocyte Count 1.68 10^3/uL (1.2-3.4); Absolute Monocyte Count 0.45 10^3/uL (0.1-0.8); Absolute Neutrophil Count 6.13 10^3/uL (1.2-6.7); Basophils % 0.2; Eosinophils % 0.7; HCT 35.2 % (36.0-46.0); HGB 11.4 g/dL (11.2-15.7); Immature Grans % 0.2; Lymphocytes % 20.1; MCH 25.6 pg (27.0-33.0); MCHC 32.4 % (32.0-36.0); MCV 79 fL (80-95); MPV 11.9 fL (8.0-11.0); Monocytes % 5.4; Neutrophils % 73.4; Platelet Count 291 10^3/uL (130-400); RBC 4.46 10^6/uL (3.93-5.22); RDW 15.9 % (11.7-14.6); RDW-SD 46.2 fL; WBC 8.36 10^3/uL (4.4-10.8)
--- NOTE | 2023-01-14 17:05 | W.ED.GENAD ---
Discharge Plan Disposition Patient Disposition: Home Discharge Details Chief Complaint: Chest Pain Clinical Impression: Upper respiratory disease, Chest pain Primary Care Provider: Anastasiya Villarreal ED Provider: Georgia Green Home Meds and New Rx's Prescriptions: No Action lisinopril 20 mg tablet 20 mg PO DAILY magnesium oxide 500 mg tablet 500 mg PO BID hydroxyzine HCl 25 mg tablet 25 mg PO BID PRN budesonide-formoterol [Symbicort] 160-4.5 mcg/actuation HFA aerosol inhaler 1 puff IH BID rizatriptan 10 mg tablet 10 mg PO ONCE epinephrine [EpiPen 2-Ho] 0.3 mg/0.3 mL auto-injector 0.3 mg IM ONCE omeprazole 40 mg capsule,delayed release(DR/EC) 40 mg PO DAILY duloxetine [Cymbalta] 60 mg capsule,delayed release(DR/EC) 60 mg PO DAILY multivitamin Tablet 1 tab PO DAILY fluticasone propion-salmeterol [Advair Diskus] 500-50 mcg/dose blister with device 1 inh inhalation BID valacyclovir 500 mg tablet 500 mg PO DAILY norethindrone acetate 5 mg tablet See Rx Instructions .ROUTE .COMPLEX Qty: 60 1RF Dose Instruction: TAKE ONE TABLET BY MOUTH TWICE A DAY Rx Instructions: TAKE ONE TABLET BY MOUTH TWICE A DAY albuterol sulfate [Ventolin HFA] 60 PUFF HFA aerosol inhaler 2 puff Inhalation Q4H PRNQty: 1 0RF Discharge Instructions Instructions: Chest Pain (ED) Additional Instructions: Call your primary care doctor on Monday to schedule an appointment to follow up on your visit here including on your BNP. Return to the emergency department for new or worsening symptoms including new/different/worse chest pain, difficutly breathing that does not respond to home treatments, or if you have any other concerns. Referrals: Anastasiya Villarreal [Primary Care Provider] - Medical Decision Making 47yo F with hx of asthma & COPD presenting with right sided chest pain and cough onset yesterday. Vital signs and physical exam reassuring, no hypoxia, lungs CTAB, no increased work of breathing. Would not treat with albuterol or duoneb currently. EKG NSR, no ST segment or T wave abnormalities to suggest occlusive HI. CXR independently reviewed, no pneumonia or pneumothorax, agree with radiology read below. Labs reviewed, CBC & CMP reassuring with no actionable abnormalities. BNP marginally elevated. Troponin negative x 2. Covid & flu negative. Suspect chest pain most likely msk 2/t cough. Advised symptomatic treatment at home, followup with PCP. Discharged home; discharge instructions and return precautions were reviewed with patient who verbalized understanding. All questions were answered and she is in full agreement with the plan. Imaging Data Radiologic Study: Imaging: X-Ray Radiologist's impression: IMPRESSION: No acute findings. Lab Data Lab results reviewed: Yes I reviewed the patient's lab results. Labs: Laboratory Tests Range/Units 01/14/23 01/14/23 01/14/23 15:05 16:20 16:20 WBC (4.4-10.8) 10^3/uL 8.36 RBC (3.93-5.22) 10^6/uL 4.46 Hgb (11.2-15.7) g/dL 11.4 Hct (36.0-46.0) % 35.2 L MCV (80-95) fL 79 L MCH (27.0-33.0) pg 25.6 L MCHC (32.0-36.0) % 32.4 RDW (11.7-14.6) % 15.9 H Plt Count (130-400) 10^3/uL 291 MPV (8.0-11.0) fL 11.9 H Immature Gran % 0.2 Neutrophils % 73.4 Lymphocytes % 20.1 Monocytes % 5.4 Eosinophils % 0.7 Basophils % 0.2 Nucleated RBC % (0.0-0.3) % 0.0 Absolute Neutrophils (1.2-6.7) 10^3/uL 6.13 Absolute Lymphocytes (1.2-3.4) 10^3/uL 1.68 Absolute Monocytes (0.1-0.8) 10^3/uL 0.45 Absolute Eosinophils (0.0-0.7) 10^3/uL 0.06 Absolute Basophils (0.0-0.2) 10^3/uL 0.02 D-Dimer (<500) ng/mlFEU Sodium (136-145) mmol/L 139 Potassium (3.5-5.1) mmol/L 3.5 Chloride (98-107) mmol/L 104 Carbon Dioxide (21.0-32.0) mmol/L 23.7 Anion Gap (3-11) mmol/L 11.3 H BUN (7-18) mg/dL 7 Creatinine (0.55-1.02) mg/dL 1.0 Est GFR (CKD-EPI 2020) (mL/min/1.73m2) 70.36 Glucose (74-106) mg/dL 82 Calcium (8.5-10.1) mg/dL 8.4 L Magnesium (1.8-2.4) mg/dL 1.9 Total Bilirubin (0.2-1.0) mg/dL 0.3 AST (15-37) U/L 23 ALT (14-59) U/L 35 Alkaline Phosphatase (46-116) U/L 95 Troponin I (<or=60) ng/L < 50 NT-Pro-B Natriuret Pep (<300) pg/mL 572 H Total Protein (6.4-8.2) g/dL 6.5 Albumin (3.4-5.0) g/dL 2.8 L Urine Color (Yellow) Yellow Urine Clarity (Clear) Clear Urine pH (5-8) 8.0 Ur Specific [place] (1.005-1.025) 1.020 Urine Protein (Negative) mg/dL Negative Urine Ketones (Negative) mg/dL Negative Urine Blood (Negative) Negative Urine Nitrite (Negative) Negative Urine Bilirubin (Negative) Negative Urine Urobilinogen (Up to 0.2) mg/dL 0.2 Ur Leukocyte Esterase (Negative) Negative Urine Glucose (Negative) mg/dL Negative COVID-19 Source SARS-CoV-2 (PCR) (Negative) Influenza Type A (PCR) (Negative) Influenza Type B (PCR) (Negative) RSV (PCR) (Negative) Range/Units 01/14/23 01/14/23 16:20 16:50 WBC (4.4-10.8) 10^3/uL RBC (3.93-5.22) 10^6/uL Hgb (11.2-15.7) g/dL Hct (36.0-46.0) % MCV (80-95) fL MCH (27.0-33.0) pg MCHC (32.0-36.0) % RDW (11.7-14.6) % Plt Count (130-400) 10^3/uL MPV (8.0-11.0) fL Immature Gran % Neutrophils % Lymphocytes % Monocytes % Eosinophils % Basophils % Nucleated RBC % (0.0-0.3) % Absolute Neutrophils (1.2-6.7) 10^3/uL Absolute Lymphocytes (1.2-3.4) 10^3/uL Absolute Monocytes (0.1-0.8) 10^3/uL Absolute Eosinophils (0.0-0.7) 10^3/uL Absolute Basophils (0.0-0.2) 10^3/uL D-Dimer (<500) ng/mlFEU 309 Sodium (136-145) mmol/L Potassium (3.5-5.1) mmol/L Chloride (98-107) mmol/L Carbon Dioxide (21.0-32.0) mmol/L Anion Gap (3-11) mmol/L BUN (7-18) mg/dL Creatinine (0.55-1.02) mg/dL Est GFR (CKD-EPI 2020) (mL/min/1.73m2) Glucose (74-106) mg/dL Calcium (8.5-10.1) mg/dL Magnesium (1.8-2.4) mg/dL Total Bilirubin (0.2-1.0) mg/dL AST (15-37) U/L ALT (14-59) U/L Alkaline Phosphatase (46-116) U/L Troponin I (<or=60) ng/L NT-Pro-B Natriuret Pep (<300) pg/mL Total Protein (6.4-8.2) g/dL Albumin (3.4-5.0) g/dL Urine Color (Yellow) Urine Clarity (Clear) Urine pH (5-8) Ur Specific [place] (1.005-1.025) Urine Protein (Negative) mg/dL Urine Ketones (Negative) mg/dL Urine Blood (Negative) Urine Nitrite (Negative) Urine Bilirubin (Negative) Urine Urobilinogen (Up to 0.2) mg/dL Ur Leukocyte Esterase (Negative) Urine Glucose (Negative) mg/dL COVID-19 Source Nasopharynx SARS-CoV-2 (PCR) (Negative) Negative Influenza Type A (PCR) (Negative) Negative Influenza Type B (PCR) (Negative) Negative RSV (PCR) (Negative) Negative HPI General Mode of arrival: ambulatory. Date/Time Provider Initiated Documentation: 01/14/23 16:03. Limitations to Documentation: no limitations. Information obtained by: patient. HPI Narrative: 47yo F with hx of asthma & COPD presenting with right sided chest pain and cough. Pain is sharp, worse with coughing, and radiates into her back. Started yesterday. No palpitations, syncope, presyncope, LE edema, or orthopnea. The pain is not pleurtic. No fevers, chills, rash, nausea, vomiting, abdominal pain, or other concerns. She is otherwise in her usual state of health. Related Data Home Medications Medication Instructions Recorded Confirmed albuterol sulfate 90 mcg/actuation 2 puff inhalation Q4H PRN #1 inh 06/29/17 12/09/22 aerosol inhaler (Ventolin HFA) budesonide-formoterol HFA 160 1 puff inhalation BID 04/09/19 12/09/22 mcg-4.5 mcg/actuation aerosol inhaler (Symbicort) duloxetine 60 mg capsule,delayed 60 mg PO DAILY 04/09/19 12/09/22 release (Cymbalta) epinephrine 0.3 mg/0.3 mL 0.3 mg IM ONCE 04/09/19 12/09/22 injection, auto-injector (EpiPen 2-Ho) hydroxyzine HCl 25 mg tablet 25 mg PO BID PRN 04/09/19 12/09/22 lisinopril 20 mg tablet 20 mg PO DAILY 04/09/19 12/09/22 magnesium oxide 500 mg tablet 500 mg PO BID 04/09/19 12/09/22 omeprazole 40 mg capsule,delayed 40 mg PO DAILY 04/09/19 12/09/22 release rizatriptan 10 mg tablet 10 mg PO ONCE 04/09/19 12/09/22 fluticasone 500 mcg-salmeterol 50 1 inh inhalation BID 02/28/20 12/09/22 mcg/dose blistr powdr for inhalation (Advair Diskus) multivitamin 1 tab PO DAILY 02/28/20 12/09/22 valacyclovir 500 mg tablet 500 mg PO DAILY 02/28/20 12/09/22 norethindrone acetate 5 mg tablet See Rx Instructions .Route 12/22/22 .COMPLEX #60 tabs Previous Rx's Medication Instructions Recorded albuterol sulfate 90 mcg/actuation 2 puff inhalation Q4H PRN #1 inh 06/29/17 aerosol inhaler (Ventolin HFA) norethindrone acetate 5 mg tablet See Rx Instructions .Route 12/22/22 .COMPLEX #60 tabs Allergies Allergy/AdvReac Type Severity Reaction Status Date / Time codeine Allergy Severe itching Unverified 11/04/22 17:19 really bad ibuprofen Allergy Severe Hives, Unverified 11/04/22 17:19 throat swelling bee venom protein (honey bee) Allergy Intermediate Swelling/Ed Unverified 11/04/22 17:19 hermelinda Penicillins AdvReac Severe Nausea Unverified 11/04/22 17:19 latex AdvReac Intermediate Verified 11/04/22 17:19 orange (food color) AdvReac Intermediate nauseous Unverified 11/04/22 17:19 orange flavor AdvReac Intermediate Nausea Unverified 11/04/22 17:19 General Stated Complaint: Chest Pain LYN: 3 Review of Systems Narrative: see HPI PFSH All Active Problems (Updated 01/14/23 @ 20:23 by Georgia Green MD) Upper respiratory disease (Acute) Chest pain (Acute) Complex cyst of right ovary (Acute) Cystocele without uterine prolapse (Acute) Heavy menses (Acute) Hyperplastic colon polyp (Acute) BMI 34.0-34.9,adult (Acute) Smoker (Acute) Peripheral ossifying fibroma of gingivae (Acute) Medical History Acid reflux Adenomatous colon polyp Anxiety Bilateral leg cramps Carpal tunnel syndrome Chronic low back pain Chronic pain syndrome COPD (chronic obstructive pulmonary disease) Dental disorder Depression Dysmenorrhea Genital herpes Hypertension Migraine PTSD (post-traumatic stress disorder) Rib pain on left side TMJ arthritis Surgical History Ligation of fallopian tube Rotator Cuff Repair wrist Family History Maternal Aunt Neoplasm uterine cancer Mother Heart disease Father Diabetes Heart disease Thyroid condition Social History Smoking/Tobacco Use Status: Former Tobacco Use Smoking risk assessment performed?: Yes Alcohol Intake: never Drug use: Daily Substance use type: marijuana Do you feel safe at home: Yes Do you feel safe in your relationship?: Yes Exam Narrative Exam Narrative: General: Alert, well appearing, well nourished, in no acute distress. Head: Normocephalic, atraumatic Neck: Trachea midline, Neck supple. ENT: MMM. No oropharygeal lesions or exudate. Cardiac: RRR, no murmurs appreciated Resp: No respiratory distress. CTAB. Abd: Soft, non-distended, nontender : No suprapubic tenderness. No CVA tenderness. Extremities: No deformities. No peripheral edema. Neurologic: GCS 15. Moves all extremities freely against gravity Course Vital Signs Vital signs: Vital Signs Temperature 36.8 C 01/14/23 16:03 Pulse 89 01/14/23 16:03 Respiratory Rate 20 01/14/23 16:03 Blood Pressure 139/93 H 01/14/23 16:03 Pulse Oximetry 98 01/14/23 16:03 Temperature 36.8 C 01/14/23 16:03 Temperature Source Oral 01/14/23 16:03 Pulse 89 01/14/23 16:03 Respiratory Rate 18 01/14/23 16:23 Respiratory Effort Normal, Non-Labored 01/14/23 16:23 Respiratory Depth Normal 01/14/23 16:23 Respiratory Pattern Normal 01/14/23 16:23 Blood Pressure 139/93 H 01/14/23 16:03 Blood Pressure Position Sitting 01/14/23 16:03 Pulse Oximetry 98 01/14/23 16:03 Oxygen Delivery Method Room Air 01/14/23 16:03 Oxygen Flow Rate 0 01/14/23 16:03 Pain Level 10 01/14/23 16:03
[2023-01-14 17:30] LABS: Bilirubin Negative (Negative); Blood Negative (Negative); Clarity Clear (Clear); Glucose Negative (Negative); Ketones Negative (Negative); Leukocyte Esterase Negative (Negative); Nitrite Negative (Negative); Urobilinogen 0.2 mg/dL (Up to 0.2)
[2023-01-14 17:32] LABS: ALT 35 U/L (14-59); AST 23 U/L (15-37); Albumin 2.8 g/dL (3.4-5.0); Alkaline Phosphatase 95 U/L (46-116); Anion Gap 11.3 mmol/L (3-11); BUN 7 mg/dL (7-18); Bilirubin, Total 0.3 mg/dL (0.2-1.0); CO2 23.7 mmol/L (21.0-32.0); Calcium 8.4 mg/dL (8.5-10.1); Chloride 104 mmol/L (98-107); Estimated GFR 70.36 (mL/min/1.73m2); Glucose 82 mg/dL (74-106); Magnesium 1.9 mg/dL (1.8-2.4); NT-proBNP 572 pg/mL (<300); Potassium 3.5 mmol/L (3.5-5.1); Sodium 139 mmol/L (136-145); Total Protein 6.5 g/dL (6.4-8.2); Troponin I < 50 ng/L (<or=60)
[2023-01-14 17:47] LABS: D-Dimer 309 ng/mlFEU (<500)
--- NOTE | 2023-01-14 17:53 | DI.RAD_ITS ---
Exam(s) XR CHEST 2V PA LATERAL EXAM: XR CHEST 2V PA LATERAL CLINICAL HISTORY: chest pain TECHNIQUE: 2D digital imaging was performed. COMPARISON: CR XR PORTABLE CHEST AP from 05/24/2022 FINDINGS: HEART: Normal size. Aorta: Not dilated. PULMONARY VASCULATURE: Normal. LUNGS: Clear. PLEURAL SPACE: No pleural effusion or pneumothorax. BONE:Unremarkable for age. IMPRESSION: No acute abnormality. DATA REPOSITORY: RADIATION DOSE DELIVERED:
[2023-01-14] MEDS: Acetaminophen 500 MG TAB 1000 MG PO (17:58)
--- NOTE | 2023-01-14 18:02 | DI.VRAD_ITS ---
PROCEDURE INFORMATION: Exam: XR Chest Exam date and time: 01/14/2023 5:48 PM Age: 47 years old Clinical indication: Other: Chest pain TECHNIQUE: Imaging protocol: Radiologic exam of the chest. Views: 2 views. COMPARISON: CR XR CHEST 2V PA LATERAL 01/14/2023 5:38 PM FINDINGS: Lungs: Unremarkable. No consolidation. Pleural spaces: Unremarkable. No pleural effusion. No pneumothorax. Heart/Mediastinum: Unremarkable. No cardiomegaly. Bones/joints: Unremarkable. IMPRESSION: No acute findings. Dictated and Authenticated by: Vasu Onofre MD. Ordering:LALIE Ho MD
[2023-01-14 18:05] LABS: COVID-19 PCR Negative (Negative); Influenza A PCR Negative (Negative); Influenza B PCR Negative (Negative); RSV PCR Negative (Negative)
[2023-01-14 18:09] LABS: Source Nasopharynx
[2023-01-14 20:06] LABS: Troponin I < 50 ng/L (<or=60)
== END 2023-01-14 20:36 | disposition home or self-care (01) ==
PROVIDERS: Emergency Provider Student in an Organized Health Care Education/Training Program; PCP Nurse Practitioner Family
DX: R07.9 Chest pain, unspecified (principal); J44.9 Chronic obstructive pulmonary disease, unspecified; R05.9 Cough, unspecified; Z20.822 Contact with and (suspected) exposure to COVID-19; R79.89 Other specified abnormal findings of blood chemistry
CPT/HCPCS: 36415; 80053; 87637; 93005; 99285; 71046; 81003; 83735; 83880; 84484; 85025; 85379; 93010; 99284

== ENCOUNTER 2023-01-18 07:48 | Emergency (ER) | payer MEDICARE, SELFPAY ==
--- NOTE | 2023-01-18 07:45 | RT.EKG_ITS ---
APPROVED REPORT Exam: Resting ECG Reason for Exam: sob Patient Location: E HR:90 bpm ECG Measurements Heart Rate 90 AXIS NJ 144 P 49 QRSd 74 QRS 49 QT 344 T 46 QTc 422 Conclusion Sinus rhythm...normal P axis, V-rate 60- 99 No change vs 01/14/23
[2023-01-18 07:47] VITALS: BP 144/94; PULSE 90; RESP 18; TEMP 36.6; O2SAT 99
--- NOTE | 2023-01-18 08:00 | DI.RAD_ITS ---
Exam(s) XR CHEST 2V PA LATERAL EXAM: XR CHEST 2V PA LATERAL CLINICAL HISTORY: Cough TECHNIQUE: 2D digital imaging was performed. COMPARISON: CR XR CHEST 2V PA LATERAL from 05/11/2022 CR XR PORTABLE CHEST AP from 05/24/2022 FINDINGS: HEART: Normal size. Aorta: Not dilated. PULMONARY VASCULATURE: Normal. LUNGS: Clear. PLEURAL SPACE: No pleural effusion or pneumothorax. BONE:Old right proximal humeral fracture deformity. IMPRESSION: No acute abnormality. DATA REPOSITORY: RADIATION DOSE DELIVERED:
[2023-01-18 08:08] VITALS: RESP 21
--- NOTE | 2023-01-18 08:12 | W.ED.GENAD ---
Discharge Plan Disposition Patient Disposition: Home Condition: Stable Discharge Details Clinical Impression: Hematemesis, Acute gastritis with bleeding Primary Care Provider: Anastasiya Villarreal ED Provider: Gege Graves Home Meds and New Rx's Prescriptions: Continued lisinopril 20 mg tablet 20 mg PO DAILY Patient Comments: Pt states not taking ML 01/18/23 budesonide-formoterol [Symbicort] 160-4.5 mcg/actuation HFA aerosol inhaler 1 puff IH BID omeprazole 40 mg capsule,delayed release(DR/EC) 40 mg PO DAILY duloxetine [Cymbalta] 60 mg capsule,delayed release(DR/EC) 60 mg PO DAILY albuterol sulfate [Ventolin HFA] 60 PUFF HFA aerosol inhaler 2 puff Inhalation Q4H PRNQty: 1 0RF No Action magnesium oxide 500 mg tablet 500 mg PO BID Patient Comments: Pt states not taking ML 01/18/23 hydroxyzine HCl 25 mg tablet 25 mg PO BID PRN Patient Comments: Pt states not taking ML 01/18/23 rizatriptan 10 mg tablet 10 mg PO ONCE Patient Comments: Pt states not taking ML 01/18/23 epinephrine [EpiPen 2-Ho] 0.3 mg/0.3 mL auto-injector 0.3 mg IM ONCE multivitamin Tablet 1 tab PO DAILY Patient Comments: Pt states not taking ML 01/18/23 fluticasone propion-salmeterol [Advair Diskus] 500-50 mcg/dose blister with device 1 inh inhalation BID Patient Comments: Pt states not taking ML 01/18/23 valacyclovir 500 mg tablet 500 mg PO DAILY Patient Comments: Pt states not taking ML 01/18/23 norethindrone acetate 5 mg tablet See Rx Instructions .ROUTE .COMPLEX Qty: 60 1RF Dose Instruction: TAKE ONE TABLET BY MOUTH TWICE A DAY Rx Instructions: TAKE ONE TABLET BY MOUTH TWICE A DAY Discharge Instructions Instructions: Gastritis (ED) Additional Instructions: Workup showed nothing emergent. No need for blood transfusion at this time. Couple of your liver enzymes are slightly elevated. Please discuss this with your PCP. Take the Zofran 20 to 30 minutes before eating or drinking anything up to 3 times daily as needed. Follow up with primary care provider in 3-5 days. Return to ED sooner if any worsening bleeding, pain, dizziness lightheadedness or concerns. Increase oral fluids. Please take the omeprazole that you were previously prescribed. [place] diet stay away from alcohol, anything fried fatty spicy or dairy for a few days. Advance as tolerated. Referrals: Anastasiya Villarreal [Primary Care Provider] - 5 days Discharge Data Discharge Date/Time-TO BE ENTERED AT DEPARTURE: 01/18/23 10:34 Medical Decision Making 47-year-old female with past medical history COPD, carpal tunnel syndrome, chronic pain syndrome depression hypertension PTSD GERD with past surgical history of tubal ligation and rotator cuff repair presents to the ER via EMS with vomiting up blood this morning. She reports that last night she thought it was just phlegm and this morning she noticed that she was spitting up blood. She denies that it is she is coughing it up she thinks that she is vomiting up. She reports alcohol rarely she is complaining of midsternal chest pressure and shortness of breath. Denies any black or bloody stools that she is aware of. She is slightly tachycardic upon arrival vital signs are stable, speaking in full sentences lungs are clear to auscultation bilaterally. No swelling noted in her lower extremities. Workup ordered including serial troponins, CBC CMP lipase, ethyl alcohol level Zofran a liter of fluid and Protonix. Chest x-ray. Differential diagnosis includes but not limited to renal ulcer, esophageal rupture, CAD, gastritis, hemoptysis. 1010: Patient reevaluation, she reports that the chest pressure and discomfort has resolved, CBC shows no leukocytosis hematocrit 35.3, MCH slightly low and CV slightly low hemoglobin within normal limits. Will send patient home with [facility] SHIELDS. She does have omeprazole at home I did encourage her to take that. Discussed strict return instructions and home care. Liver enzymes are slightly elevated however per RN report she was overheard saying that she did drink alcohol last night so this could be an alcohol related bump in the AST and ALT and associated acute gastritis. Lipase within normal limits. Initial troponin within normal limits. Second troponin canceled due to resolution of chest pain and symptoms. Chest x-ray within normal limits. See result. Vital signs have improved. Prior to discharge, remained hemodynamically stable throughout stay. discharged with follow-up care. This text was generated using [employer] system, please disregard any oddities of phrase or misspellings. Medical Records Medical records reviewed: Yes I reviewed the patient's medical records. Imaging Data Radiologic Study: Imaging: X-Ray Radiologist's impression: EXAM:? XR CHEST 2V PA ? LATERAL CLINICAL HISTORY:? Cough TECHNIQUE:? 2D digital imaging was performed. COMPARISON:? CR XR CHEST 2V PA ? LATERAL from 05/11/2022 CR XR PORTABLE CHEST AP from 05/24/2022 FINDINGS: HEART: Normal size.? Aorta: Not dilated. PULMONARY VASCULATURE: Normal. LUNGS: Clear. ? PLEURAL SPACE: No pleural effusion or pneumothorax. BONE:Old right? proximal humeral fracture deformity. IMPRESSION: No acute abnormality.? Lab Data Lab results reviewed: Yes I reviewed the patient's lab results. Labs: Laboratory Tests Range/Units 01/18/23 01/18/23 01/18/23 08:00 08:00 08:00 WBC (4.4-10.8) 10^3/uL 8.89 RBC (3.93-5.22) 10^6/uL 4.52 Hgb (11.2-15.7) g/dL 11.4 Hct (36.0-46.0) % 35.3 L MCV (80-95) fL 78 L MCH (27.0-33.0) pg 25.2 L MCHC (32.0-36.0) % 32.3 RDW (11.7-14.6) % 15.8 H Plt Count (130-400) 10^3/uL 335 MPV (8.0-11.0) fL 12.0 H Immature Gran % 0.3 Neutrophils % 70.0 Lymphocytes % 20.8 Monocytes % 6.9 Eosinophils % 1.7 Basophils % 0.3 Nucleated RBC % (0.0-0.3) % 0.0 Absolute Neutrophils (1.2-6.7) 10^3/uL 6.22 Absolute Lymphocytes (1.2-3.4) 10^3/uL 1.85 Absolute Monocytes (0.1-0.8) 10^3/uL 0.61 Absolute Eosinophils (0.0-0.7) 10^3/uL 0.15 Absolute Basophils (0.0-0.2) 10^3/uL 0.03 Sodium (136-145) mmol/L 142 Potassium (3.5-5.1) mmol/L 3.7 Chloride (98-107) mmol/L 108 H Carbon Dioxide (21.0-32.0) mmol/L 24.2 Anion Gap (3-11) mmol/L 9.8 BUN (7-18) mg/dL 8 Creatinine (0.55-1.02) mg/dL 1.1 H Est GFR (CKD-EPI 2020) (mL/min/1.73m2) 62.76 Glucose (74-106) mg/dL 99 Calcium (8.5-10.1) mg/dL 8.8 Magnesium (1.8-2.4) mg/dL 2.0 Total Bilirubin (0.2-1.0) mg/dL 0.3 AST (15-37) U/L 43 H ALT (14-59) U/L 65 H Alkaline Phosphatase (46-116) U/L 102 Troponin I (<or=60) ng/L < 50 Total Protein (6.4-8.2) g/dL 6.8 Albumin (3.4-5.0) g/dL 2.8 L Lipase (16-77) U/L 50 Ethyl Alcohol (<10) mg/dL < 3.0 Range/Units 01/18/23 11:03 WBC (4.4-10.8) 10^3/uL RBC (3.93-5.22) 10^6/uL Hgb (11.2-15.7) g/dL Hct (36.0-46.0) % MCV (80-95) fL MCH (27.0-33.0) pg MCHC (32.0-36.0) % RDW (11.7-14.6) % Plt Count (130-400) 10^3/uL MPV (8.0-11.0) fL Immature Gran % Neutrophils % Lymphocytes % Monocytes % Eosinophils % Basophils % Nucleated RBC % (0.0-0.3) % Absolute Neutrophils (1.2-6.7) 10^3/uL Absolute Lymphocytes (1.2-3.4) 10^3/uL Absolute Monocytes (0.1-0.8) 10^3/uL Absolute Eosinophils (0.0-0.7) 10^3/uL Absolute Basophils (0.0-0.2) 10^3/uL Sodium (136-145) mmol/L Potassium (3.5-5.1) mmol/L Chloride (98-107) mmol/L Carbon Dioxide (21.0-32.0) mmol/L Anion Gap (3-11) mmol/L BUN (7-18) mg/dL Creatinine (0.55-1.02) mg/dL Est GFR (CKD-EPI 2020) (mL/min/1.73m2) Glucose (74-106) mg/dL Calcium (8.5-10.1) mg/dL Magnesium (1.8-2.4) mg/dL Total Bilirubin (0.2-1.0) mg/dL AST (15-37) U/L ALT (14-59) U/L Alkaline Phosphatase (46-116) U/L Troponin I (<or=60) ng/L Cancelled Total Protein (6.4-8.2) g/dL Albumin (3.4-5.0) g/dL Lipase (16-77) U/L Ethyl Alcohol (<10) mg/dL ECG Data Prior ECG tracings: available for review HPI General Mode of arrival: EMS. Date/Time Provider Initiated Documentation: 01/18/23 08:01. Limitations to Documentation: no limitations. Information obtained by: patient, RN notes reviewed and old records reviewed. HPI Narrative: 47-year-old female with past medical history COPD, carpal tunnel syndrome, chronic pain syndrome depression hypertension PTSD GERD with past surgical history of tubal ligation and rotator cuff repair presents to the ER via EMS with vomiting up blood this morning. She reports that last night she thought it was just phlegm and this morning she noticed that she was spitting up blood. She denies that it is she is coughing it up she thinks that she is vomiting up. She reports alcohol rarely she is complaining of midsternal chest pressure and shortness of breath. Denies any black or bloody stools that she is aware of. Related Data Home Medications Medication Instructions Recorded Confirmed albuterol sulfate 90 mcg/actuation 2 puff inhalation Q4H PRN #1 inh 06/29/17 01/18/23 aerosol inhaler (Ventolin HFA) budesonide-formoterol HFA 160 1 puff inhalation BID 04/09/19 01/18/23 mcg-4.5 mcg/actuation aerosol inhaler (Symbicort) duloxetine 60 mg capsule,delayed 60 mg PO DAILY 04/09/19 01/18/23 release (Cymbalta) epinephrine 0.3 mg/0.3 mL 0.3 mg IM ONCE 04/09/19 01/18/23 injection, auto-injector (EpiPen 2-Ho) hydroxyzine HCl 25 mg tablet 25 mg PO BID PRN 04/09/19 12/09/22 lisinopril 20 mg tablet 20 mg PO DAILY 04/09/19 12/09/22 magnesium oxide 500 mg tablet 500 mg PO BID 04/09/19 12/09/22 omeprazole 40 mg capsule,delayed 40 mg PO DAILY 04/09/19 01/18/23 release rizatriptan 10 mg tablet 10 mg PO ONCE 04/09/19 12/09/22 fluticasone 500 mcg-salmeterol 50 1 inh inhalation BID 02/28/20 12/09/22 mcg/dose blistr powdr for inhalation (Advair Diskus) multivitamin 1 tab PO DAILY 02/28/20 12/09/22 valacyclovir 500 mg tablet 500 mg PO DAILY 02/28/20 12/09/22 norethindrone acetate 5 mg tablet See Rx Instructions .Route 12/22/22 01/18/23 .COMPLEX #60 tabs Previous Rx's Medication Instructions Recorded albuterol sulfate 90 mcg/actuation 2 puff inhalation Q4H PRN #1 inh 06/29/17 aerosol inhaler (Ventolin HFA) norethindrone acetate 5 mg tablet See Rx Instructions .Route 12/22/22 .COMPLEX #60 tabs Allergies Allergy/AdvReac Type Severity Reaction Status Date / Time codeine Allergy Severe itching Unverified 01/18/23 07:59 really bad ibuprofen Allergy Severe Hives, Unverified 01/18/23 07:59 throat swelling bee venom protein (honey bee) Allergy Intermediate Swelling/Ed Unverified 01/18/23 07:59 hermelinda Penicillins AdvReac Severe Nausea Unverified 01/18/23 07:59 latex AdvReac Intermediate Verified 01/18/23 07:59 orange (food color) AdvReac Intermediate nauseous Unverified 01/18/23 07:59 orange flavor AdvReac Intermediate Nausea Unverified 01/18/23 07:59 General Stated Complaint: GI Bleed LYN: 2 PFS All Active Problems (Updated 01/18/23 @ 10:21 by Gege Graves NP) Upper respiratory disease (Acute) Chest pain (Acute) Hematemesis (Acute) Acute gastritis with bleeding (Acute) Complex cyst of right ovary (Acute) Cystocele without uterine prolapse (Acute) Heavy menses (Acute) Hyperplastic colon polyp (Acute) BMI 34.0-34.9,adult (Acute) Smoker (Acute) Peripheral ossifying fibroma of gingivae (Acute) Medical History Acid reflux Adenomatous colon polyp Anxiety Bilateral leg cramps Carpal tunnel syndrome Chronic low back pain Chronic pain syndrome COPD (chronic obstructive pulmonary disease) Dental disorder Depression Dysmenorrhea Genital herpes Hypertension Migraine PTSD (post-traumatic stress disorder) Rib pain on left side TMJ arthritis Surgical History Ligation of fallopian tube Rotator Cuff Repair wrist Family History Maternal Aunt Neoplasm uterine cancer Mother Heart disease Father Diabetes Heart disease Thyroid condition Social History Smoking/Tobacco Use Status: Former Tobacco Use Smoking risk assessment performed?: Yes Alcohol Intake: never Drug use: Daily Substance use type: marijuana Housing: apartment Do you feel safe at home: Yes Do you feel safe in your relationship?: Yes Exam Narrative Exam Narrative: Constitutional: Alert and oriented x3. Appears stated age. Normal body habitus. Head: Normocephalic, no trauma. Eyes: Pupils PERRL, Red reflex noted, EOM's intact. Eyelids symmetrical without lesions, discharge, or swelling. ENT: Bilateral TM's WNL, External ear normal to inspection, no mastoid TTP, swelling, or erythema, Nasal turbinates WNL, no nasal discharge. Normal dentition, Posterior pharynx WNL, no exudate. Chest: RRR, Normal S1, S2, distal pulses intact. Resp: Lungs clear to auscultation bilaterally, no wheezes, rales, or rhonchi. Abdomen: Soft, non-distended, Normoactive bowel sounds all 4 quads. Musculoskeletal: Normal gait, 5/5 strength to all four extremities. Skin: No suspicious rashes or lesions. Capillary refill less than 2 sec. Neurologic: Cranial nerves II-XII intact. Alert and oriented x 3. Motor: No deficits noted. Sensory: Intact bilaterally all 4 extremities. Reflexes: DTR's intact bilaterally.. Hematologic/Lymphatic: No ecchymosis, no lymphadenopathy. Course Vital Signs Vital signs: Vital Signs Temperature 36.6 C 01/18/23 07:47 Pulse 90 01/18/23 07:47 Respiratory Rate 18 01/18/23 07:47 Blood Pressure 144/94 H 01/18/23 07:47 Pulse Oximetry 99 01/18/23 07:47 Temperature 36.6 C 01/18/23 07:47 Temperature Source Oral 01/18/23 07:47 Pulse 90 01/18/23 07:47 Respiratory Rate 21 01/18/23 08:08 Respiratory Effort Short of Breath 01/18/23 08:08 Respiratory Depth Normal 01/18/23 08:08 Respiratory Pattern Normal 01/18/23 08:08 Blood Pressure 144/94 H 01/18/23 07:47 Blood Pressure Position Sitting 01/18/23 07:47 Pulse Oximetry 99 01/18/23 07:47 Oxygen Delivery Method Room Air 01/18/23 07:47 Oxygen Flow Rate 0 01/18/23 07:47 Pain Level 10 01/18/23 08:08
[2023-01-18] MEDS: Normal Saline 1,000 ML 1000 ML IV (08:22)
[2023-01-18] MEDS: Ondansetron 4 MG/2 ML VIAL IVP (08:22)
[2023-01-18 08:27] LABS: Abs Immature Grans 0.03 10^3/uL (0.0-0.06); Absolute Basophil Count 0.03 10^3/uL (0.0-0.2); Absolute Eosinophil Count 0.15 10^3/uL (0.0-0.7); Absolute Lymphocyte Count 1.85 10^3/uL (1.2-3.4); Absolute Monocyte Count 0.61 10^3/uL (0.1-0.8); Absolute Neutrophil Count 6.22 10^3/uL (1.2-6.7); Basophils % 0.3; Eosinophils % 1.7; HCT 35.3 % (36.0-46.0); HGB 11.4 g/dL (11.2-15.7); Immature Grans % 0.3; Lymphocytes % 20.8; MCH 25.2 pg (27.0-33.0); MCHC 32.3 % (32.0-36.0); MCV 78 fL (80-95); Monocytes % 6.9; Platelet Count 335 10^3/uL (130-400); RBC 4.52 10^6/uL (3.93-5.22); RDW 15.8 % (11.7-14.6); RDW-SD 45.1 fL; WBC 8.89 10^3/uL (4.4-10.8)
[2023-01-18] MEDS: Pantoprazole 40 MG VIAL IVP (08:35)
[2023-01-18 08:36] LABS: ETHANOL BLOOD < 3.0 mg/dL (<10)
[2023-01-18 08:41] LABS: ALT 65 U/L (14-59); AST 43 U/L (15-37); Albumin 2.8 g/dL (3.4-5.0); Alkaline Phosphatase 102 U/L (46-116); Anion Gap 9.8 mmol/L (3-11); BUN 8 mg/dL (7-18); Bilirubin, Total 0.3 mg/dL (0.2-1.0); CO2 24.2 mmol/L (21.0-32.0); CREATININE 1.1 mg/dL (0.55-1.02); Calcium 8.8 mg/dL (8.5-10.1); Chloride 108 mmol/L (98-107); Estimated GFR 62.76 (mL/min/1.73m2); Glucose 99 mg/dL (74-106); Lipase 50 U/L (16-77); Potassium 3.7 mmol/L (3.5-5.1); Sodium 142 mmol/L (136-145); Total Protein 6.8 g/dL (6.4-8.2); Troponin I < 50 ng/L (<or=60)
[2023-01-18] MEDS: Ondansetron O.D.T. 4 MG TABEF, 3 TABS/BTL PO (10:31)
== END 2023-01-18 10:34 | disposition home or self-care (01) ==
PROVIDERS: Emergency Provider Registered Nurse Emergency; PCP Nurse Practitioner Family
DX: K92.0 Hematemesis (principal); K29.01 Acute gastritis with bleeding
CPT/HCPCS: 36415; 80053; 83690; 93005; 96361; 96374; 96375; 99284; 71046; 80320; 83735; 84484; 85025; 93010; J2405

== ENCOUNTER 2023-02-05 13:47 | Emergency (ER) | payer MEDICARE, SELFPAY ==
--- NOTE | 2023-02-05 13:45 | RT.EKG_ITS ---
APPROVED REPORT Exam: Resting ECG Reason for Exam: dizzy Patient Location: E HR:87 bpm ECG Measurements Heart Rate 87 AXIS RI 174 P 66 QRSd 75 QRS 67 QT 358 T 56 QTc 430 Conclusion Sinus rhythm... V-rate 60- [address]. [address] segment or T wave abnormalities to suggest occlusive ND
[2023-02-05 13:46] VITALS: BP 155/82; PULSE 88; RESP 18; O2SAT 100
[2023-02-05 13:52] VITALS: RESP 18
[2023-02-05 14:13] LABS: Abs Immature Grans 0.03 10^3/uL (0.0-0.06); Absolute Basophil Count 0.03 10^3/uL (0.0-0.2); Absolute Eosinophil Count 0.09 10^3/uL (0.0-0.7); Absolute Monocyte Count 0.46 10^3/uL (0.1-0.8); Absolute Neutrophil Count 6.57 10^3/uL (1.2-6.7); Basophils % 0.3; HCT 35.2 % (36.0-46.0); HGB 10.9 g/dL (11.2-15.7); Immature Grans % 0.3; Lymphocytes % 18.2; MCH 24.7 pg (27.0-33.0); MCV 80 fL (80-95); MPV 11.1 fL (8.0-11.0); Monocytes % 5.2; Platelet Count 308 10^3/uL (130-400); RBC 4.42 10^6/uL (3.93-5.22); RDW 15.1 % (11.7-14.6); RDW-SD 43.8 fL; WBC 8.78 10^3/uL (4.4-10.8)
[2023-02-05 14:35] LABS: ALT 35 U/L (14-59); AST 25 U/L (15-37); Albumin 2.9 g/dL (3.4-5.0); Alkaline Phosphatase 96 U/L (46-116); Anion Gap 9.7 mmol/L (3-11); BUN 8 mg/dL (7-18); Bilirubin, Total 0.3 mg/dL (0.2-1.0); CO2 24.3 mmol/L (21.0-32.0); Calcium 8.3 mg/dL (8.5-10.1); Chloride 104 mmol/L (98-107); Estimated GFR 70.36 (mL/min/1.73m2); Glucose 130 mg/dL (74-106); Magnesium 1.9 mg/dL (1.8-2.4); Potassium 3.7 mmol/L (3.5-5.1); Sodium 138 mmol/L (136-145); Total Protein 6.6 g/dL (6.4-8.2); Troponin I < 50 ng/L (<or=60)
--- NOTE | 2023-02-05 14:44 | W.ED.GENAD ---
Discharge Plan Disposition Patient Disposition: Home Condition: Good Discharge Details Clinical Impression: Near syncope Primary Care Provider: Anastasiya Villarreal ED Provider: Georgia Green Home Meds and New Rx's Prescriptions: Discontinued lisinopril 20 mg tablet 10 mg PO DAILY Patient Comments: Pt states not taking ML 01/18/23 No Action magnesium oxide 500 mg tablet 500 mg PO BID Patient Comments: Pt states not taking ML 01/18/23 hydroxyzine HCl 25 mg tablet 25 mg PO BID PRN Patient Comments: Pt states not taking ML 01/18/23 budesonide-formoterol [Symbicort] 160-4.5 mcg/actuation HFA aerosol inhaler 1 puff IH BID rizatriptan 10 mg tablet 10 mg PO ONCE Patient Comments: Pt states not taking ML 01/18/23 epinephrine [EpiPen 2-Ho] 0.3 mg/0.3 mL auto-injector 0.3 mg IM ONCE omeprazole 40 mg capsule,delayed release(DR/EC) 40 mg PO DAILY duloxetine [Cymbalta] 60 mg capsule,delayed release(DR/EC) 60 mg PO DAILY multivitamin Tablet 1 tab PO DAILY Patient Comments: Pt states not taking ML 01/18/23 fluticasone propion-salmeterol [Advair Diskus] 500-50 mcg/dose blister with device 1 inh inhalation BID Patient Comments: Pt states not taking ML 01/18/23 valacyclovir 500 mg tablet 500 mg PO DAILY Patient Comments: Pt states not taking ML 01/18/23 norethindrone acetate 5 mg tablet See Rx Instructions .ROUTE .COMPLEX Qty: 60 1RF Dose Instruction: TAKE ONE TABLET BY MOUTH TWICE A DAY Rx Instructions: TAKE ONE TABLET BY MOUTH TWICE A DAY albuterol sulfate [Ventolin HFA] 60 PUFF HFA aerosol inhaler 2 puff Inhalation Q4H PRNQty: 1 0RF Discharge Instructions Instructions: Near Syncope (ED) Additional Instructions: Please stop taking your lisinopril until you see your primary care doctor. Call your primary care doctor tomorrow to schedule an appointment early this week to follow up on your visit here. Return to the emergency department for new or worseing symptoms, including if you feel like you are going to pass out, have chest pain, difficulty breathing, or any other concerns. Medical Decision Making 47yo F with HTN, currently being worked up for possible gastric ulcer, presenting via EMS from [facility] after episode of near-syncope. BP medications being adjusted; recently re-started on 10mg of lisinopril. For EMS SBP in 70's. Vital signs reassuring on arrival with SBP in 150's. Completed 1L of IVFB. Nauseated at time of lightheadedness, aside from that no associated symptoms including no chest pain or shortness of breath. Suspect symptoms likely 2/t to medication; will further eval with labs/EKG. EKG NSR, appropriate intervals. No ST segment or T wave abnormalities to suggest occlusive ME. CXR independently reviewed; no pneumonia or pneumothorax on my view, agree with radiology read below. Labs as below, CBC with mild anemia Hg 10.9 (possible bleeding ulcer); recent priors ~11.4. CMP reassuring, no actionable abnormalities. Initial troponin negative. On reassessment she reports feeling well, denies complaints, delta troponin negative. With reassuring workup here, advised to hold lisinopril and followup with PCP. Discharged home; discharge instructions including return precautions were reviewed with patient who verbalized understanding. All questions were answered and they are in full agreement with the plan. Imaging Data Radiologic Study: Imaging: X-Ray Radiologist's impression: No acute abnormality. Lab Data Lab results reviewed: Yes I reviewed the patient's lab results. Labs: Laboratory Tests Range/Units 02/05/23 02/05/23 02/05/23 14:03 14:03 17:05 WBC (4.4-10.8) 10^3/uL 8.78 RBC (3.93-5.22) 10^6/uL 4.42 Hgb (11.2-15.7) g/dL 10.9 L Hct (36.0-46.0) % 35.2 L MCV (80-95) fL 80 MCH (27.0-33.0) pg 24.7 L MCHC (32.0-36.0) % 31.0 L RDW (11.7-14.6) % 15.1 H Plt Count (130-400) 10^3/uL 308 MPV (8.0-11.0) fL 11.1 H Immature Gran % 0.3 Neutrophils % 75.0 Lymphocytes % 18.2 Monocytes % 5.2 Eosinophils % 1.0 Basophils % 0.3 Nucleated RBC % (0.0-0.3) % 0.0 Absolute Neutrophils (1.2-6.7) 10^3/uL 6.57 Absolute Lymphocytes (1.2-3.4) 10^3/uL 1.60 Absolute Monocytes (0.1-0.8) 10^3/uL 0.46 Absolute Eosinophils (0.0-0.7) 10^3/uL 0.09 Absolute Basophils (0.0-0.2) 10^3/uL 0.03 Sodium (136-145) mmol/L 138 Potassium (3.5-5.1) mmol/L 3.7 Chloride (98-107) mmol/L 104 Carbon Dioxide (21.0-32.0) mmol/L 24.3 Anion Gap (3-11) mmol/L 9.7 BUN (7-18) mg/dL 8 Creatinine (0.55-1.02) mg/dL 1.0 Est GFR (CKD-EPI 2020) (mL/min/1.73m2) 70.36 Glucose (74-106) mg/dL 130 H Calcium (8.5-10.1) mg/dL 8.3 L Magnesium (1.8-2.4) mg/dL 1.9 Total Bilirubin (0.2-1.0) mg/dL 0.3 AST (15-37) U/L 25 ALT (14-59) U/L 35 Alkaline Phosphatase (46-116) U/L 96 Troponin I (<or=60) ng/L < 50 Cancelled Total Protein (6.4-8.2) g/dL 6.6 Albumin (3.4-5.0) g/dL 2.9 L Range/Units 02/05/23 18:15 WBC (4.4-10.8) 10^3/uL RBC (3.93-5.22) 10^6/uL Hgb (11.2-15.7) g/dL Hct (36.0-46.0) % MCV (80-95) fL MCH (27.0-33.0) pg MCHC (32.0-36.0) % RDW (11.7-14.6) % Plt Count (130-400) 10^3/uL MPV (8.0-11.0) fL Immature Gran % Neutrophils % Lymphocytes % Monocytes % Eosinophils % Basophils % Nucleated RBC % (0.0-0.3) % Absolute Neutrophils (1.2-6.7) 10^3/uL Absolute Lymphocytes (1.2-3.4) 10^3/uL Absolute Monocytes (0.1-0.8) 10^3/uL Absolute Eosinophils (0.0-0.7) 10^3/uL Absolute Basophils (0.0-0.2) 10^3/uL Sodium (136-145) mmol/L Potassium (3.5-5.1) mmol/L Chloride (98-107) mmol/L Carbon Dioxide (21.0-32.0) mmol/L Anion Gap (3-11) mmol/L BUN (7-18) mg/dL Creatinine (0.55-1.02) mg/dL Est GFR (CKD-EPI 2020) (mL/min/1.73m2) Glucose (74-106) mg/dL Calcium (8.5-10.1) mg/dL Magnesium (1.8-2.4) mg/dL Total Bilirubin (0.2-1.0) mg/dL AST (15-37) U/L ALT (14-59) U/L Alkaline Phosphatase (46-116) U/L Troponin I (<or=60) ng/L Cancelled Total Protein (6.4-8.2) g/dL Albumin (3.4-5.0) g/dL HPI General Mode of arrival: EMS. Date/Time Provider Initiated Documentation: 02/05/23 13:54. Limitations to Documentation: no limitations. Information obtained by: patient and EMS. HPI Narrative: 47yo F with HTN, currently being worked up for possible gastric ulcer, presenting via EMS from [facility] after episode of near-syncope. Recently BP medication adjustment; had been taking 20mg of linsopril which was stopped awhile ago, this week restarted on 10mg of lisinopril. Today while walking around at the [facility] felt unwell, nauseated, and like she was going to pass out. Sat down. No fall or head strike. For EMS BP was low with SBP in 70's. Symptoms have resolved and she currently feels back to normal. No chest pain or shortness of breath at any point. She is otherwise in her usual state of health with no fevers, chills, rash, abdominal pain, chest pain, shortness of breath, or other concerns. Related Data Home Medications Medication Instructions Recorded Confirmed albuterol sulfate 90 mcg/actuation 2 puff inhalation Q4H PRN #1 inh 06/29/17 02/05/23 aerosol inhaler (Ventolin HFA) budesonide-formoterol HFA 160 1 puff inhalation BID 04/09/19 02/05/23 mcg-4.5 mcg/actuation aerosol inhaler (Symbicort) duloxetine 60 mg capsule,delayed 60 mg PO DAILY 04/09/19 02/05/23 release (Cymbalta) epinephrine 0.3 mg/0.3 mL 0.3 mg IM ONCE 04/09/19 02/05/23 injection, auto-injector (EpiPen 2-Ho) hydroxyzine HCl 25 mg tablet 25 mg PO BID PRN 04/09/19 02/05/23 magnesium oxide 500 mg tablet 500 mg PO BID 04/09/19 02/05/23 omeprazole 40 mg capsule,delayed 40 mg PO DAILY 04/09/19 02/05/23 release rizatriptan 10 mg tablet 10 mg PO ONCE 04/09/19 02/05/23 fluticasone 500 mcg-salmeterol 50 1 inh inhalation BID 02/28/20 02/05/23 mcg/dose blistr powdr for inhalation (Advair Diskus) multivitamin 1 tab PO DAILY 02/28/20 02/05/23 valacyclovir 500 mg tablet 500 mg PO DAILY 02/28/20 02/05/23 norethindrone acetate 5 mg tablet See Rx Instructions .Route 12/22/22 02/05/23 .COMPLEX #60 tabs Previous Rx's Medication Instructions Recorded albuterol sulfate 90 mcg/actuation 2 puff inhalation Q4H PRN #1 inh 06/29/17 aerosol inhaler (Ventolin HFA) norethindrone acetate 5 mg tablet See Rx Instructions .Route 12/22/22 .COMPLEX #60 tabs Allergies Allergy/AdvReac Type Severity Reaction Status Date / Time codeine Allergy Severe itching Unverified 02/05/23 13:55 really bad ibuprofen Allergy Severe Hives, Unverified 02/05/23 13:55 throat swelling bee venom protein (honey bee) Allergy Intermediate Swelling/Ed Unverified 02/05/23 13:55 hermelinda Penicillins AdvReac Severe Nausea Unverified 02/05/23 13:55 latex AdvReac Intermediate Verified 02/05/23 13:55 orange (food color) AdvReac Intermediate nauseous Unverified 02/05/23 13:55 orange flavor AdvReac Intermediate Nausea Unverified 02/05/23 13:55 General Stated Complaint: Dizzy/Sync LYN: 3 Review of Systems Narrative: see HPI PFSH All Active Problems (Updated 02/05/23 @ 17:41 by Georgia Green MD) Upper respiratory disease (Acute) Chest pain (Acute) Hematemesis (Acute) Acute gastritis with bleeding (Acute) Near syncope (Acute) Complex cyst of right ovary (Acute) Cystocele without uterine prolapse (Acute) Heavy menses (Acute) Hyperplastic colon polyp (Acute) BMI 34.0-34.9,adult (Acute) Smoker (Acute) Peripheral ossifying fibroma of gingivae (Acute) Medical History Acid reflux Adenomatous colon polyp Anxiety Bilateral leg cramps Carpal tunnel syndrome Chronic low back pain Chronic pain syndrome COPD (chronic obstructive pulmonary disease) Dental disorder Depression Dysmenorrhea Genital herpes Hypertension Migraine PTSD (post-traumatic stress disorder) Rib pain on left side TMJ arthritis Surgical History Ligation of fallopian tube Rotator Cuff Repair wrist Family History Maternal Aunt Neoplasm uterine cancer Mother Heart disease Father Diabetes Heart disease Thyroid condition Social History Smoking/Tobacco Use Status: Former Tobacco Use Smoking risk assessment performed?: Yes Alcohol Intake: never Drug use: Daily Substance use type: marijuana Housing: apartment Do you feel safe at home: Yes Do you feel safe in your relationship?: Yes Exam Narrative Exam Narrative: General: Alert, well appearing, well nourished, in no acute distress. Head: Normocephalic, atraumatic Neck: Trachea midline, Neck supple. ENT: MMM. No oropharygeal lesions or exudate. Cardiac: RRR, no murmurs appreciated Resp: No respiratory distress. CTAB. Abd: Soft, non-distended, nontender : No suprapubic tenderness. No CVA tenderness. Extremities: No deformities. No peripheral edema. Neurologic: GCS 15. Moves all extremities freely against gravity Course Vital Signs Vital signs: Vital Signs Pulse 88 02/05/23 13:46 Respiratory Rate 18 02/05/23 13:46 Blood Pressure 155/82 H 02/05/23 13:46 Pulse Oximetry 100 02/05/23 13:46 Pulse 88 02/05/23 13:46 Respiratory Rate 18 02/05/23 13:52 Respiratory Effort Normal 02/05/23 13:52 Blood Pressure 155/82 H 02/05/23 13:46 Blood Pressure Position Sitting 02/05/23 13:46 Pulse Oximetry 100 02/05/23 13:46 Oxygen Delivery Method Room Air 02/05/23 13:46 Oxygen Flow Rate 0 02/05/23 13:46 Pain Level 0 02/05/23 13:46 Lab/Test Results Lab/Test Results: Laboratory Tests Range/Units 02/05/23 02/05/23 02/05/23 14:03 14:03 17:05 WBC (4.4-10.8) 10^3/uL 8.78 RBC (3.93-5.22) 10^6/uL 4.42 Hgb (11.2-15.7) g/dL 10.9 L Hct (36.0-46.0) % 35.2 L MCV (80-95) fL 80 MCH (27.0-33.0) pg 24.7 L MCHC (32.0-36.0) % 31.0 L RDW (11.7-14.6) % 15.1 H Plt Count (130-400) 10^3/uL 308 MPV (8.0-11.0) fL 11.1 H Immature Gran % 0.3 Neutrophils % 75.0 Lymphocytes % 18.2 Monocytes % 5.2 Eosinophils % 1.0 Basophils % 0.3 Nucleated RBC % (0.0-0.3) % 0.0 Absolute Neutrophils (1.2-6.7) 10^3/uL 6.57 Absolute Lymphocytes (1.2-3.4) 10^3/uL 1.60 Absolute Monocytes (0.1-0.8) 10^3/uL 0.46 Absolute Eosinophils (0.0-0.7) 10^3/uL 0.09 Absolute Basophils (0.0-0.2) 10^3/uL 0.03 Sodium (136-145) mmol/L 138 Potassium (3.5-5.1) mmol/L 3.7 Chloride (98-107) mmol/L 104 Carbon Dioxide (21.0-32.0) mmol/L 24.3 Anion Gap (3-11) mmol/L 9.7 BUN (7-18) mg/dL 8 Creatinine (0.55-1.02) mg/dL 1.0 Est GFR (CKD-EPI 2020) (mL/min/1.73m2) 70.36 Glucose (74-106) mg/dL 130 H Calcium (8.5-10.1) mg/dL 8.3 L Magnesium (1.8-2.4) mg/dL 1.9 Total Bilirubin (0.2-1.0) mg/dL 0.3 AST (15-37) U/L 25 ALT (14-59) U/L 35 Alkaline Phosphatase (46-116) U/L 96 Troponin I (<or=60) ng/L < 50 Cancelled Total Protein (6.4-8.2) g/dL 6.6 Albumin (3.4-5.0) g/dL 2.9 L Range/Units 02/05/23 18:15 WBC (4.4-10.8) 10^3/uL RBC (3.93-5.22) 10^6/uL Hgb (11.2-15.7) g/dL Hct (36.0-46.0) % MCV (80-95) fL MCH (27.0-33.0) pg MCHC (32.0-36.0) % RDW (11.7-14.6) % Plt Count (130-400) 10^3/uL MPV (8.0-11.0) fL Immature Gran % Neutrophils % Lymphocytes % Monocytes % Eosinophils % Basophils % Nucleated RBC % (0.0-0.3) % Absolute Neutrophils (1.2-6.7) 10^3/uL Absolute Lymphocytes (1.2-3.4) 10^3/uL Absolute Monocytes (0.1-0.8) 10^3/uL Absolute Eosinophils (0.0-0.7) 10^3/uL Absolute Basophils (0.0-0.2) 10^3/uL Sodium (136-145) mmol/L Potassium (3.5-5.1) mmol/L Chloride (98-107) mmol/L Carbon Dioxide (21.0-32.0) mmol/L Anion Gap (3-11) mmol/L BUN (7-18) mg/dL Creatinine (0.55-1.02) mg/dL Est GFR (CKD-EPI 2020) (mL/min/1.73m2) Glucose (74-106) mg/dL Calcium (8.5-10.1) mg/dL Magnesium (1.8-2.4) mg/dL Total Bilirubin (0.2-1.0) mg/dL AST (15-37) U/L ALT (14-59) U/L Alkaline Phosphatase (46-116) U/L Troponin I (<or=60) ng/L Cancelled Total Protein (6.4-8.2) g/dL Albumin (3.4-5.0) g/dL
[2023-02-05 17:28] LABS: Troponin I < 50 ng/L (<or=60)
--- NOTE | 2023-02-05 18:18 | NUR.NOTE ---
Nursing Note: Called and left a VM for DON that pt is ready to be picked up.
== END 2023-02-05 18:15 | disposition home or self-care (01) ==
PROVIDERS: Emergency Provider Student in an Organized Health Care Education/Training Program; PCP Nurse Practitioner Family
DX: R55 Syncope and collapse; I10 Essential (primary) hypertension; R42 Dizziness and giddiness
CPT/HCPCS: 80053; 93005; 99284; 83735; 84484; 85025; 93010

== ENCOUNTER → 2023-02-28 13:37 | Outpatient (BNVA) | payer MEDICARE, SELFPAY | PROVIDERS: PCP Nurse Practitioner Family; Referring Provider Nurse Practitioner Family; Visit Provider Surgery | DX: R10.13 Epigastric pain (principal) | CPT/HCPCS: 99212; 99213 ==

== ENCOUNTER 2023-04-04 17:33 | Emergency (ER) | payer MEDICARE, SELFPAY ==
[2023-04-04] VITALS (28 sets, daily range): BP systolic 115–146; BP diastolic 58–90; PULSE 74–94; RESP 9–24; TEMP 36; O2SAT 98–100
--- NOTE | 2023-04-04 17:30 | RT.EKG_ITS ---
APPROVED REPORT Exam: Resting ECG Reason for Exam: dizziness, vomiting Patient Location: E HR:77 bpm ECG Measurements Heart Rate 77 AXIS NE 150 P 55 QRSd 74 QRS 39 QT 359 T 46 QTc 406 Conclusion Sinus rhythm...normal P axis, V-rate 60- 99 Consider left ventricular hypertrophy...(S V1+R V5/V6) >3.25mV I have reviewed and interpreted ECG and agree with software generated interpretation.
--- NOTE | 2023-04-04 17:45 | DI.RAD_ITS ---
Exam(s) XR CHEST 2V PA LATERAL EXAM: XR CHEST 2V PA LATERAL CLINICAL HISTORY: weakness, sob. TECHNIQUE: 2D digital imaging was performed. COMPARISON: No exams were available for comparison FINDINGS: 2 views: Heart size is normal. The mediastinum is not widened. Lungs are clear. No infiltrates nor pleural effusions. IMPRESSION: No acute pulmonary findings. DATA REPOSITORY: RADIATION DOSE DELIVERED:
[2023-04-04 17:59] LABS: Abs Immature Grans 0.02 10^3/uL (0.0-0.06); Absolute Basophil Count 0.03 10^3/uL (0.0-0.2); Absolute Eosinophil Count 0.08 10^3/uL (0.0-0.7); Absolute Lymphocyte Count 2.08 10^3/uL (1.2-3.4); Absolute Monocyte Count 0.54 10^3/uL (0.1-0.8); Absolute Neutrophil Count 5.18 10^3/uL (1.2-6.7); Basophils % 0.4; HCT 36.7 % (36.0-46.0); HGB 11.5 g/dL (11.2-15.7); Immature Grans % 0.3; Lymphocytes % 26.2; MCH 24.1 pg (27.0-33.0); MCHC 31.3 % (32.0-36.0); MCV 77 fL (80-95); MPV 11.5 fL (8.0-11.0); Monocytes % 6.8; Neutrophils % 65.3; Platelet Count 338 10^3/uL (130-400); RBC 4.78 10^6/uL (3.93-5.22); RDW 16.7 % (11.7-14.6); RDW-SD 46.4 fL; WBC 7.93 10^3/uL (4.4-10.8)
[2023-04-04] MEDS: Normal Saline 1,000 ML 1000 ML IV (18:11)
[2023-04-04 18:16] LABS: Bilirubin Small (Negative); Blood Negative (Negative); Clarity Clear (Clear); Glucose Negative (Negative); Ketones Trace mg/dL (Negative); Leukocyte Esterase Trace (Negative); Nitrite Negative (Negative); Specific Gravity 1.025 (1.005-1.025); Urobilinogen 0.2 mg/dL (Up to 0.2)
[2023-04-04 18:24] LABS: Bacteria Few HPF (Negative); Crystals Negative HPF (Negative); Epithelial Cells Many HPF (Negative); Mucus Trace (Negative)
[2023-04-04 18:28] LABS: ALT 75 U/L (14-59); AST 55 U/L (15-37); Albumin 3.3 g/dL (3.4-5.0); Alkaline Phosphatase 96 U/L (46-116); Anion Gap 8.3 mmol/L (3-11); BUN 9 mg/dL (7-18); Bilirubin, Total 0.3 mg/dL (0.2-1.0); CO2 23.7 mmol/L (21.0-32.0); CREATININE 1.1 mg/dL (0.55-1.02); Calcium 9.5 mg/dL (8.5-10.1); Chloride 102 mmol/L (98-107); Estimated GFR 62.76 (mL/min/1.73m2); Glucose 114 mg/dL (74-106); Magnesium 2.1 mg/dL (1.8-2.4); Sodium 134 mmol/L (136-145); Total Protein 7.7 g/dL (6.4-8.2); Troponin I < 50 ng/L (<or=60)
[2023-04-04 18:42] LABS: COVID-19 PCR Negative (Negative); Influenza A PCR Negative (Negative); Influenza B PCR Negative (Negative); RSV PCR Negative (Negative)
[2023-04-04 18:43] LABS: HCG Qual (Serum) Negative
[2023-04-04 18:43] LABS: Source NASOPHARYNX
--- NOTE | 2023-04-04 18:49 | W.ED.GENAD ---
Discharge Plan Disposition Patient Disposition: Home Discharge Details Clinical Impression: Nausea vomiting and diarrhea, Light-headed feeling Primary Care Provider: Anastasiya Villarreal ED Provider: Ivelisse Duarte Home Meds and New Rx's Prescriptions: New prochlorperazine maleate [Compazine] 10 mg tablet 10 mg PO TID PRNQty: 10 0RF Continued hydroxyzine HCl 25 mg tablet 25 mg PO BID PRN Patient Comments: Pt states not taking ML 01/18/23 epinephrine [EpiPen 2-Ho] 0.3 mg/0.3 mL auto-injector 0.3 mg IM ONCE omeprazole 40 mg capsule,delayed release(DR/EC) 40 mg PO DAILY fluticasone propion-salmeterol [Advair Diskus] 500-50 mcg/dose blister with device 1 inh inhalation BID Patient Comments: Pt states not taking ML 01/18/23 valacyclovir 500 mg tablet 500 mg PO DAILY Patient Comments: Pt states not taking ML 01/18/23 latanoprost 0.005 % drops, emulsion 1 drp ophthalmic (eye) DAILY albuterol sulfate [Ventolin HFA] 60 PUFF HFA aerosol inhaler 2 puff Inhalation Q4H PRNQty: 1 0RF Discharge Instructions Instructions: Acute Nausea and Vomiting (ED) Additional Instructions: take compazine as needed for nausea and vomiting gingerale, saltines, chicken noodle soup popsicles please return earlier with new or worsenging complaints Referrals: Anastasiya Villarreal [Primary Care Provider] - Medical Decision Making 47-year-old female presenting with multiple complaints, EKG without evidence of acute abnormality, symptoms have largely improved since being transported to the emergency department denies any active dizziness or nausea Afebrile nontoxic stable vitals Chest x-ray, urinalysis, diagnostic blood work were ordered for further evaluation and largely unchanged when compared to prior Fluvid contreras negative Urinalysis without evidence of urinary tract infection, contaminated specimen, able to tolerate p.o., orthostatics negative, I considered presyncope although it sounds like patient symptoms are related to nausea, vomiting, diarrhea. She had a single episode of diarrhea, no indication for stool studies at this time, afebrile and nontoxic, stable vitals and reassessment Encouraged to follow-up with primary care physician, Vasile for home Able to tolerate p.o. at time of discharge home Return precautions reviewed and patient expressed understanding no abdominal tenderness, uvula midline, oropharynx patent, lungs clear to auscultation, no meningismus, no headache, no pain complaints, alert and oriented x4 at time of discharge home and ambulatory steady gait HPI General Date/Time Provider Initiated Documentation: 04/04/23 17:40. HPI Narrative: 47-year-old female presenting with nausea, vomiting, diarrhea, lightheadedness which started abruptly prompting her to call EMS. Denies any chest discomfort or chance of . Denies any blood in vomitus or stool. Denies any known sick contacts. Denies any spoiled food exposure. Denies history of similar symptoms in the past. Denies any urinary complaints. Denies any exotic travel. Related Data Home Medications Medication Instructions Recorded Confirmed albuterol sulfate 90 mcg/actuation 2 puff inhalation Q4H PRN #1 inh 06/29/17 04/04/23 aerosol inhaler (Ventolin HFA) epinephrine 0.3 mg/0.3 mL 0.3 mg IM ONCE 04/09/19 04/04/23 injection, auto-injector (EpiPen 2-Ho) hydroxyzine HCl 25 mg tablet 25 mg PO BID PRN 04/09/19 04/04/23 omeprazole 40 mg capsule,delayed 40 mg PO DAILY 04/09/19 04/04/23 release fluticasone 500 mcg-salmeterol 50 1 inh inhalation BID 02/28/20 04/04/23 mcg/dose blistr powdr for inhalation (Advair Diskus) valacyclovir 500 mg tablet 500 mg PO DAILY 02/28/20 04/04/23 latanoprost 0.005 % eye drops, 1 drp ophthalmic (eye) DAILY 02/27/23 04/04/23 emulsion prochlorperazine maleate 10 mg 10 mg PO TID PRN #10 tabs 04/04/23 tablet (Compazine) Previous Rx's Medication Instructions Recorded albuterol sulfate 90 mcg/actuation 2 puff inhalation Q4H PRN #1 inh 06/29/17 aerosol inhaler (Ventolin HFA) prochlorperazine maleate 10 mg 10 mg PO TID PRN #10 tabs 04/04/23 tablet (Compazine) Allergies Allergy/AdvReac Type Severity Reaction Status Date / Time codeine Allergy Severe itching Unverified 04/04/23 17:41 really bad ibuprofen Allergy Severe Hives, Unverified 04/04/23 17:41 throat swelling bee venom protein (honey bee) Allergy Intermediate Swelling/Ed Unverified 04/04/23 17:41 hermelinda Penicillins AdvReac Severe Nausea Unverified 04/04/23 17:41 latex AdvReac Intermediate Hives Verified 04/04/23 17:41 orange (food color) AdvReac Intermediate nauseous Unverified 04/04/23 17:41 orange flavor AdvReac Intermediate Nausea Unverified 04/04/23 17:41 General Stated Complaint: Dizzy/Sync LYN: 3 PFSH All Active Problems (Updated 04/04/23 @ 19:28 by MIKE Jang) Light-headed feeling (Acute) Nausea vomiting and diarrhea (Acute) Epigastric discomfort (Acute) Complex cyst of right ovary (Acute) Cystocele without uterine prolapse (Acute) Heavy menses (Acute) Hyperplastic colon polyp (Acute) BMI 34.0-34.9,adult (Acute) Smoker (Acute) Peripheral ossifying fibroma of gingivae (Acute) Medical History Acid reflux Adenomatous colon polyp Anxiety Bilateral leg cramps Carpal tunnel syndrome Chronic low back pain Chronic pain syndrome COPD (chronic obstructive pulmonary disease) Dental disorder Depression Dysmenorrhea Family history of colon cancer Genital herpes Hypertension Migraine Palpitations PTSD (post-traumatic stress disorder) Rib pain on left side Sleep apnea Stress incontinence TMJ arthritis Surgical History Ligation of fallopian tube Rotator Cuff Repair wrist Family History Maternal Aunt Neoplasm uterine cancer Mother Heart disease Father Diabetes Heart disease Thyroid condition Social History (Updated 02/28/23 @ 14:11 by Rakel Peterson MD) Smoking/Tobacco Use Status: Current every day Tobacco Type: cigarettes Smoking packs per day: 0.5 Smoking cigarettes per day: 10.0 Smoking risk assessment performed?: Yes Alcohol Intake: never Drug use: Daily Substance use type: marijuana Housing: apartment Do you feel safe at home: Yes Do you feel safe in your relationship?: Yes Course Vital Signs Vital signs: Vital Signs Temperature 36.0 C L 04/04/23 17:33 Pulse 84 04/04/23 17:33 Respiratory Rate 22 04/04/23 17:33 Blood Pressure 116/73 04/04/23 17:33 Pulse Oximetry 100 04/04/23 17:33 Temperature 36.0 C L 04/04/23 17:33 Temperature Source Skin 04/04/23 17:33 Pulse 80 04/04/23 17:37 Pulse 82 04/04/23 17:38 Respiratory Rate 13 04/04/23 17:50 Respiratory Effort Normal 04/04/23 17:50 Respiratory Depth Normal 04/04/23 17:50 Blood Pressure 116/73 04/04/23 17:37 Blood Pressure Mean 84 04/04/23 17:37 Blood Pressure Position Supine 04/04/23 17:33 Pulse Oximetry 100 04/04/23 17:38 Oxygen Delivery Method Room Air 04/04/23 17:33 Oxygen Flow Rate 0 04/04/23 17:33 Lab/Test Results Lab/Test Results: Laboratory Tests Range/Units 04/04/23 04/04/23 04/04/23 17:43 17:47 18:10 WBC (4.4-10.8) 10^3/uL 7.93 RBC (3.93-5.22) 10^6/uL 4.78 Hgb (11.2-15.7) g/dL 11.5 Hct (36.0-46.0) % 36.7 MCV (80-95) fL 77 L MCH (27.0-33.0) pg 24.1 L MCHC (32.0-36.0) % 31.3 L RDW (11.7-14.6) % 16.7 H Plt Count (130-400) 10^3/uL 338 MPV (8.0-11.0) fL 11.5 H Immature Gran % 0.3 Neutrophils % 65.3 Lymphocytes % 26.2 Monocytes % 6.8 Eosinophils % 1.0 Basophils % 0.4 Nucleated RBC % (0.0-0.3) % 0.0 Absolute Neutrophils (1.2-6.7) 10^3/uL 5.18 Absolute Lymphocytes (1.2-3.4) 10^3/uL 2.08 Absolute Monocytes (0.1-0.8) 10^3/uL 0.54 Absolute Eosinophils (0.0-0.7) 10^3/uL 0.08 Absolute Basophils (0.0-0.2) 10^3/uL 0.03 Sodium (136-145) mmol/L 134 L Potassium (3.5-5.1) mmol/L 4.0 Chloride (98-107) mmol/L 102 Carbon Dioxide (21.0-32.0) mmol/L 23.7 Anion Gap (3-11) mmol/L 8.3 BUN (7-18) mg/dL 9 Creatinine (0.55-1.02) mg/dL 1.1 H Est GFR (CKD-EPI 2020) (mL/min/1.73m2) 62.76 Glucose (74-106) mg/dL 114 H Calcium (8.5-10.1) mg/dL 9.5 Magnesium (1.8-2.4) mg/dL 2.1 Total Bilirubin (0.2-1.0) mg/dL 0.3 AST (15-37) U/L 55 H ALT (14-59) U/L 75 H Alkaline Phosphatase (46-116) U/L 96 Troponin I (<or=60) ng/L < 50 Total Protein (6.4-8.2) g/dL 7.7 Albumin (3.4-5.0) g/dL 3.3 L Serum HCG, Qual Negative Urine Color (Yellow) Yellow Urine Clarity (Clear) Clear Urine pH (5-8) 6.0 Ur Specific [place] (1.005-1.025) 1.025 Urine Protein (Negative) mg/dL 100 H Urine Ketones (Negative) mg/dL Trace H Urine Blood (Negative) Negative Urine Nitrite (Negative) Negative Urine Bilirubin (Negative) Small H Urine Urobilinogen (Up to 0.2) mg/dL 0.2 Ur Leukocyte Esterase (Negative) Trace H Urine RBC (0-2) HPF 3-5 H Urine WBC (0-5) HPF 10-20 H Ur Epithelial Cells (Negative) HPF Many Urine Crystals (Negative) HPF Negative Urine Bacteria (Negative) HPF Few Urine Mucus (Negative) Trace Ur Culture Indicated? No Urine Glucose (Negative) mg/dL Negative COVID-19 Source NASOPHARYNX SARS-CoV-2 (PCR) (Negative) Negative Influenza Type A (PCR) (Negative) Negative Influenza Type B (PCR) (Negative) Negative RSV (PCR) (Negative) Negative
--- NOTE | 2023-04-04 19:27 | DI.VRAD_ITS ---
PROCEDURE INFORMATION: Exam: XR Chest Exam date and time: 04/04/2023 6:52 PM Age: 47 years old Clinical indication: Shortness of breath and other: Weakness TECHNIQUE: Imaging protocol: Radiologic exam of the chest. Views: 2 views. COMPARISON: CR XR CHEST 2V PA LATERAL 01/18/2023 8:45 AM FINDINGS: Lungs: Mild peribronchial thickening. No consolidation. Pleural spaces: Unremarkable. No pleural effusion. No pneumothorax. Heart/Mediastinum: Unremarkable. No cardiomegaly. Bones/joints: Unremarkable. IMPRESSION: Question mild bronchitis No focal consolidation Dictated and Authenticated by: Adrián Valenzuela MD. Ordering:DONY Oviedo MD
[2023-04-04 22:57] LABS: C & S Indicated? No/Sq. Contamination
== END 2023-04-04 19:41 | disposition home or self-care (01) ==
LOC: ER 19:51
PROVIDERS: Emergency Provider Physician Assistant; PCP Nurse Practitioner Family
DX: R42 Dizziness and giddiness (principal); R11.2 Nausea with vomiting, unspecified; R19.7 Diarrhea, unspecified
CPT/HCPCS: 80053; 87637; 93005; 96365; 99284; 71046; 81003; 81015; 83735; 84484; 84703; 85025; 93010

== ENCOUNTER → 2023-05-09 02:16 | Outpatient (CLI) | payer MEDICARE, SELFPAY ==
--- NOTE | 2023-05-09 08:15 | DI.US_ITS ---
Exam(s) US PELVIS TRANSVAGINAL EXAM: US PELVIS TRANSVAGINAL CLINICAL HISTORY: re-checK COMPLEX CYST RT OVARY,N83.291 TECHNIQUE: Ultrasound of the pelvis was performed both transabdominal and transvaginal. COMPARISON: CT CT CHEST/ABD/PEL W from 12/04/2018 US US PELVIS TRANSVAGINAL from 10/03/2022 FINDINGS: UTERUS: Nongravid and anteverted Measures 7 cm length x 3.7 cm AP x 4.2 cm wide. There are no uterine fibroids. Endometrial thickness measures 8-9 mm. There is no fluid in the endometrial canal. CERVIX: 7 x 7 mm nabothian cysts noted RIGHT OVARY: Measures 2.1 x 1.1 x 2.0 cm On the present study there is a 1.2 x 1.1 x 0.8 cm mildly lobulated cyst in the right ovary which has decreased in size from prior ultrasound examination of September 2022. Previously measured 4.2 x 2.7 x 3.2 cm LEFT OVARY: Again not able to be seen, as was the case on prior ultrasound examination of September 2022. Also revie wing CT scan November 2018 I note that the left ovary is not seen on that study. CUL-DE-SAC: No free fluid evident. IMPRESSION: 1. Normal appearing uterus and age-appropriate endometrium. 2. The previously described complex cyst in the right ovary has decreased in size by approximately 50 percent. No new right ovarian findings. 3. The left ovary is again not able to be identified, and in retrospect was not easily identified on CT scan of November 2018. DATA REPOSITORY:
== END ==
PROVIDERS: PCP Nurse Practitioner Family; Visit Provider Obstetrics & Gynecology
DX: N83.291 Other ovarian cyst, right side (principal)
CPT/HCPCS: 76830; 76856

== ENCOUNTER 2023-05-11 13:49 | Outpatient (RCR) | payer MEDICARE, SELFPAY ==
--- NOTE | 2023-05-11 14:00 | HOLTER_ITS ---
APPROVED REPORT Conclusion This is a 48-hour Holter monitor ordered for palpitations Rhythm throughout was sinus. Average heart rate was 96. Minimum was 66, maximum 142 There were very rare isolated atrial and ventricular premature beats There was no atrial fibrillation, no SVT, no high-grade AV block, no pauses greater than 3 seconds Patient symptoms were reported which had no correlation to any dysrhythmia
== END 2023-05-11 23:59 | disposition home or self-care (01) ==
LOC: CARDOPNVT 13:49
PROVIDERS: PCP Nurse Practitioner Family; Visit Provider Nurse Practitioner Family
DX: R00.2 Palpitations (principal)
CPT/HCPCS: 93227; 93225

== ENCOUNTER 2023-05-18 17:06 | Outpatient (RCR) | payer MEDICARE, SELFPAY | END 2023-06-11 23:59 | disposition home or self-care (01) | LOC: CARDOPNVT 17:06 | PROVIDERS: PCP Nurse Practitioner Family; Visit Provider Nurse Practitioner Family | DX: R00.2 Palpitations (principal) | CPT/HCPCS: 93227; 93226 ==

== ENCOUNTER 2023-06-20 15:59 | Outpatient (REF) | payer OTHER, MEDICAID, SELFPAY ==
[2023-06-20 19:53] LABS: Abs Immature Grans 0.02 10^3/uL (0.0-0.06); Absolute Basophil Count 0.05 10^3/uL (0.0-0.2); Absolute Lymphocyte Count 1.46 10^3/uL (1.2-3.4); Absolute Monocyte Count 0.42 10^3/uL (0.1-0.8); Basophils % 0.8; Eosinophils % 1.7; HCT 35.9 % (36.0-46.0); Immature Grans % 0.3; Lymphocytes % 24.5; MCH 24.7 pg (27.0-33.0); MCHC 30.6 % (32.0-36.0); MCV 81 fL (80-95); MPV 12.3 fL (8.0-11.0); Monocytes % 7.1; Neutrophils % 65.6; Platelet Count 228 10^3/uL (130-400); RBC 4.46 10^6/uL (3.93-5.22); RDW 17.3 % (11.7-14.6); RDW-SD 50.6 fL; WBC 5.95 10^3/uL (4.4-10.8)
[2023-06-20 20:18] LABS: ALT 21 U/L (14-59); AST 18 U/L (15-37); Albumin 3.5 g/dL (3.4-5.0); Alkaline Phosphatase 113 U/L (46-116); Anion Gap 5.4 mmol/L (3-11); BUN 9 mg/dL (7-18); Bilirubin, Total 0.2 mg/dL (0.2-1.0); CO2 29.6 mmol/L (21.0-32.0); Calcium 9.2 mg/dL (8.5-10.1); Chloride 104 mmol/L (98-107); Estimated GFR 70.36 (mL/min/1.73m2); Glucose 87 mg/dL (74-106); Potassium 4.6 mmol/L (3.5-5.1); Sodium 139 mmol/L (136-145); TSH (W/Ref FT4) 3.17 uIU/mL (0.36-3.74); Total Protein 6.8 g/dL (6.4-8.2)
== END 2023-06-20 16:00 | disposition home or self-care (01) ==
LOC: NCHCN 15:59
PROVIDERS: PCP Nurse Practitioner Family; Visit Provider Nurse Practitioner Family
DX: R53.83 Other fatigue (principal)
CPT/HCPCS: 80053; 82306; 84443; 85025

== ENCOUNTER 2023-08-05 13:29 | Emergency (ER) | payer OTHER, SELFPAY ==
[2023-08-05 13:34] VITALS: BP 109/72; PULSE 70; RESP 18; TEMP 36.9; O2SAT 99
--- NOTE | 2023-08-05 13:45 | DI.RAD_ITS ---
Exam(s) XR HAND LT COMPLETE EXAM: XR HAND LT COMPLETE CLINICAL HISTORY: left hand pain. TECHNIQUE: 2D digital imaging was performed. COMPARISON: No exams were available for comparison FINDINGS: No evidence of fracture or dislocation. No radiopaque foreign body. Bone density normal. No osseou s lesions and no erosions. IMPRESSION: No acute osseous findings in the hand. DATA REPOSITORY: RADIATION DOSE DELIVERED:
--- NOTE | 2023-08-05 14:15 | DI.VRAD_ITS ---
PROCEDURE INFORMATION: Exam: XR Left Hand Exam date and time: 08/05/2023 2:04 PM Age: 47 years old Clinical indication: Other: Left hand pain TECHNIQUE: Imaging protocol: Radiologic exam of the left hand. Views: 3 or more views. COMPARISON: No relevant prior studies available. FINDINGS: Bones/joints: There is no evidence of acute fracture.There is no evidence of malalignment or dislocation. Degenerative changes in the thumb carpometacarpal joint Soft tissues: Normal. IMPRESSION: There is no evidence of acute fracture.There is no evidence of malalignment or dislocation. Dictated and Authenticated by: Randall Madrigal MD. Ordering:DONY Oviedo MD
--- NOTE | 2023-08-05 15:25 | ED.GENADUL_ITS ---
Discharge Plan Disposition Patient Disposition: Home Condition: Stable Discharge Details Clinical Impression: De Quervain's disease (tenosynovitis) Primary Care Provider: Anastasiya Villarreal ED Provider: Ivelisse Duarte Home Meds and New Rx's Prescriptions: Continued hydroxyzine HCl 25 mg tablet 25 mg PO BID PRN Patient Comments: Pt states not taking ML 01/18/23 epinephrine [EpiPen 2-Ho] 0.3 mg/0.3 mL auto-injector 0.3 mg IM ONCE omeprazole 40 mg capsule,delayed release(DR/EC) 40 mg PO DAILY fluticasone propion-salmeterol [Advair Diskus] 500-50 mcg/dose blister with device 1 inh inhalation BID Patient Comments: Pt states not taking ML 01/18/23 valacyclovir 500 mg tablet 500 mg PO DAILY Patient Comments: Pt states not taking ML 01/18/23 latanoprost 0.005 % drops, emulsion 1 drp ophthalmic (eye) DAILY albuterol sulfate [Ventolin HFA] 60 PUFF HFA aerosol inhaler 2 puff Inhalation Q4H PRNQty: 1 0RF prochlorperazine maleate [Compazine] 10 mg tablet 10 mg PO TID PRNQty: 10 0RF Discharge Instructions Additional Instructions: Wear the splint Take Tylenol as needed for pain Recheck in 1 week with your primary care physician and return earlier should you have new or worsening complaints Referrals: Anastasiya Villarreal [Primary Care Provider] - Discharge Data Discharge Date/Time-TO BE ENTERED AT DEPARTURE: 08/05/23 14:45 HPI General Date/Time Provider Initiated Documentation: 08/05/23 13:41 . HPI Narrative: This 47-year-old female presents with left thumb pain. Denies known specific trauma. States she has pain with flexion. Denies any additional complaints at this time. Denies prior history of similar symptoms in the past. Related Data Home Medications Medication Instructions Recorded Confirmed albuterol sulfate 90 mcg/actuation 2 puff inhalation Q4H PRN #1 inh 06/29/17 04/04/23 aerosol inhaler (Ventolin HFA) epinephrine 0.3 mg/0.3 mL 0.3 mg IM ONCE 04/09/19 04/04/23 injection, auto-injector (EpiPen 2-Ho) hydroxyzine HCl 25 mg tablet 25 mg PO BID PRN 04/09/19 04/04/23 omeprazole 40 mg capsule,delayed 40 mg PO DAILY 04/09/19 04/04/23 release fluticasone 500 mcg-salmeterol 50 1 inh inhalation BID 02/28/20 04/04/23 mcg/dose blistr powdr for inhalation (Advair Diskus) valacyclovir 500 mg tablet 500 mg PO DAILY 02/28/20 04/04/23 latanoprost 0.005 % eye drops, 1 drp ophthalmic (eye) DAILY 02/27/23 04/04/23 emulsion prochlorperazine maleate 10 mg 10 mg PO TID PRN #10 tabs 04/04/23 tablet (Compazine) Previous Rx's Medication Instructions Recorded albuterol sulfate 90 mcg/actuation 2 puff inhalation Q4H PRN #1 inh 06/29/17 aerosol inhaler (Ventolin HFA) prochlorperazine maleate 10 mg 10 mg PO TID PRN #10 tabs 04/04/23 tablet (Compazine) Allergies Allergy/AdvReac Type Severity Reaction Status Date / Time codeine Allergy Severe itching Unverified 08/05/23 13:41 really bad ibuprofen Allergy Severe Hives, Unverified 08/05/23 13:41 throat swelling bee venom protein (honey bee) Allergy Intermediate Swelling/Ed Unverified 08/05/23 13:41 hermelinda Penicillins AdvReac Severe Nausea Unverified 08/05/23 13:41 latex AdvReac Intermediate Hives Verified 08/05/23 13:41 orange (food color) AdvReac Intermediate nauseous Unverified 08/05/23 13:41 orange flavor AdvReac Intermediate Nausea Unverified 08/05/23 13:41 General Stated Complaint: Orthopedic LYN: 4 Course Vital Signs Vital signs: Vital Signs Temperature 36.9 C 08/05/23 13:34 Pulse 70 08/05/23 13:34 Respiratory Rate 18 08/05/23 13:34 Blood Pressure 109/72 08/05/23 13:34 Pulse Oximetry 99 08/05/23 13:34 Temperature 36.9 C 08/05/23 13:34 Temperature Source Skin 08/05/23 13:34 Pulse 70 08/05/23 13:34 Respiratory Rate 18 08/05/23 13:34 Respiratory Effort Normal 08/05/23 13:43 Blood Pressure 109/72 08/05/23 13:34 Blood Pressure Position Sitting 08/05/23 13:34 Pulse Oximetry 99 08/05/23 13:34 Oxygen Delivery Method Room Air 08/05/23 13:34 Oxygen Flow Rate 0 08/05/23 13:34 Pain Level 5 08/05/23 14:43 Comment tylenol ~ 7am today no ice applied 08/05/23 13:34 Medical Decision Making This 47-year-old female presents with left thumb pain over the course of the past week worsening per patient. On exam she has a positive Sohan test, no erythema or swelling noted to her joint, she is neurovascularly intact Her x-ray does not show acute abnormality She placed in a thumb spica splint and encouraged to rest her thumb is much as possible follow-up with her primary care physician in 1 week for reassessment Encouraged Tylenol as she is allergic to ibuprofen and return precautions reviewed and patient expressed understanding Quality:SDOH Health Related Social Needs: No Data to Display PFSH All Active Problems (Updated 08/05/23 @ 14:29 by MIKE Jang) De Quervain's disease (tenosynovitis) (Acute) Epigastric discomfort (Acute) Complex cyst of right ovary (Acute) Decreased in size on ultrasound 05/2023. Cystocele without uterine prolapse (Acute) Heavy menses (Acute) Hyperplastic colon polyp (Acute) BMI 34.0-34.9,adult (Acute) Smoker (Acute) Peripheral ossifying fibroma of gingivae (Acute) Medical History Acid reflux Adenomatous colon polyp Anxiety Bilateral leg cramps Carpal tunnel syndrome Chronic low back pain Chronic pain syndrome COPD (chronic obstructive pulmonary disease) Dental disorder Depression Dysmenorrhea Family history of colon cancer Genital herpes Hypertension Migraine Palpitations PTSD (post-traumatic stress disorder) Rib pain on left side Sleep apnea Stress incontinence TMJ arthritis Surgical History Ligation of fallopian tube Rotator Cuff Repair wrist Family History Maternal Aunt Neoplasm uterine cancer Mother Heart disease Father Diabetes Heart disease Thyroid condition Social History (Updated 02/28/23 @ 14:11 by Rakel Peterson MD) Smoking/Tobacco Use Status: Current every day Tobacco Type: cigarettes Smoking packs per day: 0.5 Smoking cigarettes per day: 10.0 Smoking risk assessment performed?: Yes Alcohol Intake: never Drug use: Daily Substance use type: marijuana Housing: apartment Do you feel safe at home: Yes Do you feel safe in your relationship?: Yes
== END 2023-08-05 14:45 | disposition home or self-care (01) ==
PROVIDERS: Emergency Provider Physician Assistant; PCP Nurse Practitioner Family
DX: M79.642 Pain in left hand (principal); M79.645 Pain in left finger(s); M65.4 Radial styloid tenosynovitis [de Quervain]
CPT/HCPCS: 29130; 99283; 73130

== ENCOUNTER 2024-01-07 11:25 | Emergency (ER) | payer OTHER, SELFPAY ==
[2024-01-07 11:27] VITALS: BP 126/70; PULSE 87; RESP 18; TEMP 35.7; O2SAT 99
--- NOTE | 2024-01-07 11:30 | DI.RAD_ITS ---
Exam(s) XR WRIST RT COMPL NAVICULAR EXAM: XR WRIST RT COMPL NAVICULAR CLINICAL HISTORY: trauma- FOOSH. TECHNIQUE: 2D digital imaging was performed of the right wrist. Four views were obtained. Scaphoid, PA, lateral and oblique views were obtained. COMPARISON: No exams were available for comparison FINDINGS: BONES: No acute fracture is present. No bony destructive lesion is seen. JOINTS: The carpal bones are normally aligned. There are degenerative changes seen in the wrist parti cularly at the distal radial ulnar joint and the 1st CMC joint. SOFT TISSUE: Normal. IMPRESSION: No acute fracture or dislocation. DATA REPOSITORY: RADIATION DOSE DELIVERED:
--- NOTE | 2024-01-07 11:55 | ED.GENADUL_ITS ---
Discharge Plan Disposition Patient Disposition: Home Discharge Details Clinical Impression: Right wrist sprain Primary Care Provider: Unknown,Unknown ED Provider: Michael Brian Home Meds and New Rx's Prescriptions: Continued hydroxyzine HCl 25 mg tablet 25 mg PO BID PRN epinephrine [EpiPen 2-Ho] 0.3 mg/0.3 mL auto-injector 0.3 mg IM ONCE omeprazole 40 mg capsule,delayed release(DR/EC) 40 mg PO DAILY fluticasone propion-salmeterol [Advair Diskus] 500-50 mcg/dose blister with device 1 inh inhalation BID valacyclovir 500 mg tablet 500 mg PO DAILY latanoprost 0.005 % drops, emulsion 1 drp ophthalmic (eye) DAILY albuterol sulfate [Ventolin HFA] 60 PUFF HFA aerosol inhaler 2 puff Inhalation Q4H PRNQty: 1 0RF prochlorperazine maleate [Compazine] 10 mg tablet 10 mg PO TID PRNQty: 10 0RF acetaminophen 500 mg capsule 1,000 mg PO Q4H PRN Discharge Instructions Instructions: Using Cold for Pain, Wrist Sprain ED Additional Instructions: Please wear the wrist brace over the next 1 to 2 weeks but you may slowly increase activity as tolerated by discomfort Please continue to use appropriate [id number] medications as directed on packaging for pain control along with application of ice to help with pain and swelling Return to the emergency department for any new or significant worsening symptoms otherwise follow-up with primary care provider if not improving in the next 1 to 2 weeks Referrals: Primary Care Provider [Outside] (If not improving in the next 1 to 2 weeks) Discharge Data Discharge Date/Time-TO BE ENTERED AT DEPARTURE: 01/07/24 12:53 HPI General Mode of arrival: ambulatory . Date/Time Provider Initiated Documentation: 01/07/24 11:30 . Limitations to Documentation: no limitations . Information obtained by: patient and RN notes reviewed . History of Present Illness 48 year old F presents to the emergency department with the chief complaint of right wrist injury, described as moderate, Quality is described as aching, and is localized to the right and upper extremity. Patient reports no radiation. Patient started experiencing this day(s) (1) and it has been constant. Immobilization improves symptom(s), Movement worsens symptoms . Patient notes no other symptoms.. Related Data Home Medications ?Medication ?Instructions ?Recorded ?Confirmed albuterol sulfate 90 mcg/actuation 2 puff inhalation Q4H PRN #1 inh 06/29/17 01/07/24 aerosol inhaler (Ventolin HFA) epinephrine 0.3 mg/0.3 mL 0.3 mg IM ONCE 04/09/19 01/07/24 injection, auto-injector (EpiPen 2-Ho) hydroxyzine HCl 25 mg tablet 25 mg PO BID PRN 04/09/19 01/07/24 omeprazole 40 mg capsule,delayed 40 mg PO DAILY 04/09/19 01/07/24 release fluticasone 500 mcg-salmeterol 50 1 inh inhalation BID 02/28/20 01/07/24 mcg/dose blistr powdr for inhalation (Advair Diskus) valacyclovir 500 mg tablet 500 mg PO DAILY 02/28/20 01/07/24 latanoprost 0.005 % eye drops, 1 drp ophthalmic (eye) DAILY 02/27/23 01/07/24 emulsion prochlorperazine maleate 10 mg 10 mg PO TID PRN #10 tabs 04/04/23 01/07/24 tablet (Compazine) acetaminophen 500 mg capsule 1,000 mg PO Q4H PRN 01/07/24 01/07/24 Previous Rx's ?Medication ?Instructions ?Recorded albuterol sulfate 90 mcg/actuation 2 puff inhalation Q4H PRN #1 inh 06/29/17 aerosol inhaler (Ventolin HFA) prochlorperazine maleate 10 mg 10 mg PO TID PRN #10 tabs 04/04/23 tablet (Compazine) Allergies Allergy/AdvReac Type Severity Reaction Status Date / Time codeine Allergy Severe itching Unverified 01/07/24 11:29 really bad ibuprofen Allergy Severe Hives, Unverified 01/07/24 11:29 throat swelling bee venom protein (honey bee) Allergy Intermediate Swelling/Ed Unverified 01/07/24 11:29 hermelinda Penicillins AdvReac Severe Nausea Unverified 01/07/24 11:29 latex AdvReac Intermediate Hives Verified 01/07/24 11:29 orange (food color) AdvReac Intermediate nauseous Unverified 01/07/24 11:29 orange flavor AdvReac Intermediate Nausea Unverified 01/07/24 11:29 General Stated Complaint: Orthopedic LYN: 4 Review of Systems Cardiovascular Cardiovascular: Denies syncope Musculoskeletal Musculoskeletal: Reports as per HPI, Reports arthralgias, Reports joint swelling and Reports limited range of motion Integumentary/Breasts Skin/Breast: Denies wounds Neurologic Neurologic: Denies syncope Exam Const General: cooperative, no acute distress and not ill appearing Orientation: alert, awake and oriented x3 HENMT Mouth: moist mucous membranes Resp Effort & Inspection: normal respiratory effort, able to speak in complete sentences and no respiratory distress Cardio Rate: regular rate Rhythm: regular rhythm Pulses: normal peripheral pulses Skin General skin exam: no rashes or lesions noted Neuro General: patient alert, patient awake, patient oriented x3, moves all extremities and no focal motor deficits Sensory Exam: no sensory deficits noted Extrem General: normal exam except as noted Right upper extremity: wrist Details: tenderness Location: of the distal radius, of the distal ulna and of the anatomic snuffbox, swelling Location: of the dorsal wrist, abnormal ROM Details: pain with active ROM during and pain with passive ROM during, ecchymosis wrist dorsal and radial pulse present; no abrasions and no lacerations Course Vital Signs Vital signs: Vital Signs Temperature 35.7 C L 01/07/24 11:27 Pulse 87 01/07/24 11:27 Respiratory Rate 18 01/07/24 11:27 Blood Pressure 126/70 01/07/24 11:27 Pulse Oximetry 99 01/07/24 11:27 Temperature 35.7 C L 01/07/24 11:27 Temperature Source Skin 01/07/24 11:27 Pulse 87 01/07/24 11:27 Respiratory Rate 18 01/07/24 11:27 Respiratory Effort Normal, Non-Labored 01/07/24 11:46 Blood Pressure 126/70 01/07/24 11:27 Blood Pressure Position Sitting 01/07/24 11:27 Pulse Oximetry 99 01/07/24 11:27 Oxygen Delivery Method Room Air 01/07/24 11:27 Oxygen Flow Rate 0 01/07/24 11:27 Pain Level 10 01/07/24 11:46 Medical Decision Making Patient presenting to the emergency department for chief complaint of right wrist injury. Patient reports fall on outstretched hand otherwise denies all other injury. Physical exam shows significant swelling to mainly dorsal aspect of right wrist with some noted ecchymosis. Patient has extremely minimal flexion and extension of the wrist with difficulty rotating wrist. Patient does report history of surgery on the wrist but denies any previous fractures. Will plan on performing radiological imaging for evaluation of sprain versus fracture. Pending results patient given oxycodone due to NSAID allergy Review of radiological imaging shows no acute fracture or dislocation. Patient placed in a thumb spica wrist splint and encouraged to continue conservative pain management at home along with follow-up to primary care provider for reassessment if not improving over the next 1 to 2 weeks. After discussion of diagnosis and plan of care patient has no further needs, questions, or concerns and states clear understanding to return to the emergency department for any worsening symptoms. This documentation was generated using [employer] dictation system, please disregard any oddities of phrase or misspellings. Imaging Data Radiologic Study: Imaging: X-Ray Radiologist's impression: Exam(s) XR WRIST RT COMPL NAVICULAR EXAM: XR WRIST RT COMPL NAVICULAR CLINICAL HISTORY: trauma- FOOSH. TECHNIQUE: 2D digital imaging was performed of the right wrist. Four views were obtained. Scaphoid, PA, lateral and oblique views were obtained. COMPARISON: No exams were available for comparison FINDINGS: BONES: No acute fracture is present. No bony destructive lesion is seen. JOINTS: The carpal bones are normally aligned. There are degenerative changes seen in the wrist particularly at the distal radial ulnar joint and the 1st CMC joint. SOFT TISSUE: Normal. IMPRESSION: No acute fracture or dislocation. Quality:SDOH Health Related Social Needs: No Data to Display PFSH All Active Problems (Updated 01/07/24 @ 12:49 by Michael Brian NP) Right wrist sprain (Acute) Epigastric discomfort (Acute) Complex cyst of right ovary (Acute) Decreased in size on ultrasound 05/2023. Cystocele without uterine prolapse (Acute) Heavy menses (Acute) Hyperplastic colon polyp (Acute) BMI 34.0-34.9,adult (Acute) Smoker (Acute) Peripheral ossifying fibroma of gingivae (Acute) Medical History Family history of colon cancer Sleep apnea Palpitations Stress incontinence TMJ arthritis Dental disorder Carpal tunnel syndrome Chronic low back pain Depression Hypertension Acid reflux Dysmenorrhea Genital herpes Chronic pain syndrome Adenomatous colon polyp Migraine COPD (chronic obstructive pulmonary disease) Bilateral leg cramps Rib pain on left side Anxiety PTSD (post-traumatic stress disorder) Surgical History wrist Ligation of fallopian tube Rotator Cuff Repair Family History Maternal Aunt Neoplasm uterine cancer Mother Heart disease Father Diabetes Heart disease Thyroid condition Social History Smoking/Tobacco Use Status: Current every day Tobacco Type: cigarettes Smoking packs per day: 0.5 Smoking cigarettes per day: 10.0 Smoking risk assessment performed?: Yes Alcohol Intake: never Drug use: Daily Substance use type: marijuana Housing: apartment Do you feel safe at home: Yes Do you feel safe in your relationship?: Yes PAWSS Have you Been Recently Intoxicated or Drunk Within the Last 30 days?: No Have you Ever Experienced Previous Episodes of Alcohol Withdrawal?: No Have you ever Experienced Withdrawal Seizures?: No Have you ever Experienced Delirium Tremens(DT)s?: No Have you ever undergone Alcohol Rehabilitation Treatment (i.e, inpt ot outpatient treatment programs)?: No Have you ever Experienced Blackouts?: No Have you ever Combined Alcohol with other Downers within the last 90 days?: No Have you ever Combined Alcohol with any other Substance of Abuse during the last 90 days?: No Positive Blood Alcohol level on Presentation? [PCS.BAL]: No Evidence of Increased Autonomic Activity (i.e. HR>120, tremor, sweating, agitation, nausea)?: No Result: 0
[2024-01-07] MEDS: oxyCODONE 5 MG TAB PO (12:02)
--- NOTE | 2024-01-07 12:20 | DI.VRAD_ITS ---
PROCEDURE INFORMATION: Exam: XR Right Wrist Exam date and time: 01/07/2024 11:39 AM Age: 48 years old Clinical indication: Injury or trauma; Fall; Other: Trauma- foosh TECHNIQUE: Imaging protocol: Radiologic exam of the right wrist. Views: 3 or more views. COMPARISON: No relevant prior studies available. FINDINGS: Bones/joints: Normal. No evidence of fracture or dislocation Soft tissues: Normal. IMPRESSION: No acute findings. Dictated and Authenticated by: Anastasiya Villarreal MD. Ordering:JACOBO Rodriguez MD
== END 2024-01-07 12:53 | disposition home or self-care (01) ==
PROVIDERS: Emergency Provider Nurse Practitioner Family
DX: S63.501A Unspecified sprain of right wrist, initial encounter (principal); W54.1XXA Struck by dog, initial encounter
CPT/HCPCS: 29125; 99283; 73110

== ENCOUNTER 2024-05-14 19:44 | Emergency (ER) | payer OTHER, SELFPAY ==
[2024-05-14 19:48] VITALS: BP 180/68; PULSE 90; RESP 20; TEMP 36.1; O2SAT 100
--- NOTE | 2024-05-14 20:39 | ED.GENADUL_ITS ---
Discharge Plan Disposition Patient Disposition: Home Discharge Details Clinical Impression: Rash Primary Care Provider: Unknown,Unknown ED Provider: Sara Conteh Home Meds and New Rx's Prescriptions: No Action hydroxyzine HCl 25 mg tablet 25 mg PO BID PRN epinephrine [EpiPen 2-Ho] 0.3 mg/0.3 mL auto-injector 0.3 mg IM ONCE omeprazole 40 mg capsule,delayed release(DR/EC) 40 mg PO DAILY fluticasone propion-salmeterol [Advair Diskus] 500-50 mcg/dose blister with device 1 inh inhalation BID valacyclovir 500 mg tablet 500 mg PO DAILY latanoprost 0.005 % drops, emulsion 1 drp ophthalmic (eye) DAILY duloxetine 30 mg capsule,delayed release(DR/EC) 30 mg PO DAILY duloxetine 60 mg capsule,delayed release(DR/EC) 60 mg PO DAILY lisinopril 5 mg tablet 5 mg PO DAILY magnesium oxide 500 mg magnesium tablet 500 mg PO BID multivit with min-folic acid [One Daily Womens 50 Plus] 0.4 mg tablet 1 tab PO DAILY rizatriptan 10 mg tablet See Rx Instructions PO .COMPLEX Rx Instructions: take 1 tab at onset of headache; if no relief may repeat 1 tab after at least 2 hrs; max = 3 tabs/24 hr PO tiotropium bromide [Spiriva with HandiHaler] 18 mcg capsule, w/inhalation device 1 cap inhalation DAILY Rx Instructions: puncture 1 cap using device; one dose = 2 inhalations topiramate [Topamax] 25 mg tablet 25 mg PO QHS ascorbic acid (vitamin C) 250 mg tablet 250 mg PO BID ferrous sulfate 325 mg (65 mg iron) tablet 325 mg PO DAILY albuterol sulfate [Ventolin HFA] 60 PUFF HFA aerosol inhaler 2 puff Inhalation Q4H PRNQty: 1 0RF acetaminophen 500 mg capsule 1,000 mg PO Q4H PRN Discharge Instructions Instructions: Topical corticosteroid medicines Additional Instructions: Please use the provided cream twice daily. Monitor symptoms and return if they are worsening HPI General Date/Time Provider Initiated Documentation: 05/14/24 19:55 . Limitations to Documentation: no limitations . Information obtained by: patient . HPI Narrative: 48-year-old female with out significant past medical history presents for evaluation of left arm rash. She states that it has been present for the last several days. She states that it is burning and itching. She is unaware of any exposures. Denies any tick bites. Related Data Home Medications ?Medication ?Instructions ?Recorded ?Confirmed albuterol sulfate 90 mcg/actuation 2 puff inhalation Q4H PRN #1 inh 06/29/17 05/14/24 aerosol inhaler (Ventolin HFA) epinephrine 0.3 mg/0.3 mL 0.3 mg IM ONCE 04/09/19 05/14/24 injection, auto-injector (EpiPen 2-Ho) hydroxyzine HCl 25 mg tablet 25 mg PO BID PRN 04/09/19 05/14/24 omeprazole 40 mg capsule,delayed 40 mg PO DAILY 04/09/19 05/14/24 release fluticasone 500 mcg-salmeterol 50 1 inh inhalation BID 02/28/20 05/14/24 mcg/dose blistr powdr for inhalation (Advair Diskus) valacyclovir 500 mg tablet 500 mg PO DAILY 02/28/20 05/14/24 latanoprost 0.005 % eye drops, 1 drp ophthalmic (eye) DAILY 02/27/23 05/14/24 emulsion acetaminophen 500 mg capsule 1,000 mg PO Q4H PRN 01/07/24 05/14/24 ascorbic acid (vitamin C) 250 mg 250 mg PO BID 01/16/24 05/14/24 tablet duloxetine 30 mg capsule,delayed 30 mg PO DAILY 01/16/24 05/14/24 release duloxetine 60 mg capsule,delayed 60 mg PO DAILY 01/16/24 05/14/24 release ferrous sulfate 325 mg (65 mg 325 mg PO DAILY 01/16/24 05/14/24 iron) tablet lisinopril 5 mg tablet 5 mg PO DAILY 01/16/24 05/14/24 magnesium oxide 500 mg PO BID 01/16/24 05/14/24 multivitamin with minerals-folic 1 tab PO DAILY 01/16/24 05/14/24 acid 0.4 mg tablet (One Daily Womens 50 Plus) rizatriptan 10 mg tablet See Rx Instructions PO .COMPLEX 01/16/24 05/14/24 tiotropium bromide 18 mcg capsule 1 cap inhalation DAILY 01/16/24 05/14/24 with inhalation device (Spiriva with HandiHaler) topiramate 25 mg tablet (Topamax) 25 mg PO QHS 01/16/24 05/14/24 Previous Rx's ?Medication ?Instructions ?Recorded albuterol sulfate 90 mcg/actuation 2 puff inhalation Q4H PRN #1 inh 06/29/17 aerosol inhaler (Ventolin HFA) Allergies Allergy/AdvReac Type Severity Reaction Status Date / Time codeine Allergy Severe itching Unverified 05/14/24 19:51 really bad ibuprofen Allergy Severe Hives, Unverified 05/14/24 19:51 throat swelling bee venom protein (honey bee) Allergy Intermediate Swelling/Ed Unverified 05/14/24 19:51 hermelinda Penicillins AdvReac Severe Nausea Unverified 05/14/24 19:51 latex AdvReac Intermediate Hives Verified 05/14/24 19:51 orange (food color) AdvReac Intermediate nauseous Unverified 05/14/24 19:51 orange flavor AdvReac Intermediate Nausea Unverified 05/14/24 19:51 General Stated Complaint: RashLesion LYN: 4 Exam Narrative Exam Narrative: Review of Systems: All systems reviewed & are unremarkable except as noted in HPI and below Well-developed, no acute distress RRR Unlabored respiratory effort Left posterior upper arm with a 10 x 10 circular lesion not completely circumferential there are some's very small vesicles, no central clearing, slight tenderness to touch over that area Course Vital Signs Vital signs: Vital Signs Temperature 36.1 C L 05/14/24 19:48 Pulse 90 05/14/24 19:48 Respiratory Rate 20 05/14/24 19:48 Blood Pressure 180/68 H 05/14/24 19:48 Pulse Oximetry 100 05/14/24 19:48 Temperature 36.1 C L 05/14/24 19:48 Pulse 90 05/14/24 19:48 Respiratory Rate 20 05/14/24 19:48 Respiratory Effort Normal 05/14/24 19:50 Blood Pressure 180/68 H 05/14/24 19:48 Blood Pressure Position Sitting 05/14/24 19:48 Pulse Oximetry 100 05/14/24 19:48 Oxygen Delivery Method Room Air 05/14/24 19:48 Oxygen Flow Rate 0 05/14/24 19:48 Medical Decision Making Evaluation of rash. Unlikely to be shingles given that it crosses multiple dermatomes and seems very circular though it is burning and itching. Consider contact dermatitis which it appears most consistent with, but she is unaware of any potential exposure. Unlikely to be erythema migrans with a known tick bite and also does not have any appearance consistent with foci. Unlikely to be cellulitis. Unlikely to be ringworm or eczema. She has no other lesions noted. Will treat with topical steroid cream which was provided to the patient. Instructions to use twice daily until symptoms resolve. If worsens, should return for reevaluation. Quality:SDOH Health Related Social Needs: 2 No Data to Display PFSH All Active Problems Rash (Acute) Epigastric discomfort (Acute) Complex cyst of right ovary (Acute) Decreased in size on ultrasound 05/2023. Cystocele without uterine prolapse (Acute) Heavy menses (Acute) Hyperplastic colon polyp (Acute) BMI 34.0-34.9,adult (Acute) Smoker (Acute) Peripheral ossifying fibroma of gingivae (Acute) Medical History Family history of colon cancer Sleep apnea Palpitations Stress incontinence TMJ arthritis Dental disorder Carpal tunnel syndrome Chronic low back pain Depression Hypertension Acid reflux Dysmenorrhea Genital herpes Chronic pain syndrome Adenomatous colon polyp Migraine COPD (chronic obstructive pulmonary disease) Bilateral leg cramps Rib pain on left side Anxiety PTSD (post-traumatic stress disorder) Surgical History wrist Ligation of fallopian tube Rotator Cuff Repair Family History Maternal Aunt Neoplasm uterine cancer Mother Heart disease Father Diabetes Heart disease Thyroid condition Social History Smoking/Tobacco Use Status: Current every day Tobacco Type: cigarettes Smoking packs per day: 0.5 Smoking cigarettes per day: 10.0 and e-cigarettes Smoking risk assessment performed?: Yes Alcohol Intake: never Drug use: Daily Substance use type: marijuana Housing: apartment Do you feel safe at home: Yes Do you feel safe in your relationship?: Yes
[2024-05-14] MEDS: Clobetasol 0.05% CREAM 15 GM TUBE TP (20:47)
== END 2024-05-14 20:52 | disposition home or self-care (01) ==
LOC: ER 21:06
PROVIDERS: Emergency Provider Emergency Medicine
DX: R21 Rash and other nonspecific skin eruption (principal)
CPT/HCPCS: 99283; 99284

== ENCOUNTER 2024-06-19 13:27 | Outpatient (REF) | payer MEDICARE, SELFPAY ==
[2024-06-19 15:00] LABS: Abs Immature Grans 0.01 10^3/uL (0.0-0.06); Absolute Basophil Count 0.03 10^3/uL (0.0-0.2); Absolute Eosinophil Count 0.09 10^3/uL (0.0-0.7); Absolute Lymphocyte Count 1.31 10^3/uL (1.2-3.4); Absolute Monocyte Count 0.42 10^3/uL (0.1-0.8); Absolute Neutrophil Count 2.72 10^3/uL (1.2-6.7); Basophils % 0.7 %; HCT 32.8 % (36.0-46.0); Immature Grans % 0.2 %; Lymphocytes % 28.6 %; MCH 23.8 pg (27.0-33.0); MCHC 30.5 % (32.0-36.0); MCV 78 fL (80-95); MPV 11.5 fL (8.0-11.0); Monocytes % 9.2 %; Neutrophils % 59.3 %; Platelet Count 235 10^3/uL (130-400); RDW 17.2 % (11.7-14.6); RDW-SD 48.2 fL; WBC 4.58 10^3/uL (4.4-10.8)
[2024-06-19 15:24] LABS: Iron 14 ug/dL (50-170); Total Iron Binding Capacity 407 ug/dL (250-450); Transferrin Sat 3 % (15-50)
[2024-06-19 15:45] LABS: ALT 16 U/L (14-59); AST 15 U/L (15-37); Albumin 3.6 g/dL (3.4-5.0); Alkaline Phosphatase 89 U/L (46-116); Anion Gap 6.2 mmol/L (3-11); BUN 9 mg/dL (7-18); Bilirubin, Total 0.26 mg/dL (0.2-1.0); CO2 28.8 mmol/L (21.0-32.0); Calcium 8.9 mg/dL (8.5-10.1); Calculated LDL 102 mg/dL (<100); Chloride 107 mmol/L (98-107); Cholesterol 176 mg/dL (<200); Estimated GFR 69.93 (mL/min/1.73m2); Ferritin 5 ng/mL (8-252); Folate 7.6 ng/mL (8.6-20.0); Glucose 83 mg/dL (74-106); HDL Cholesterol 55 mg/dL (40-60); Potassium 4.2 mmol/L (3.5-5.1); Sodium 142 mmol/L (136-145); TSH 2.45 uIU/mL (0.36-3.74); Total Protein 6.8 g/dL (6.4-8.2); Triglyceride 99 mg/dL (<150); Vitamin B12 207 pg/mL (193-986); Vitamin D 25 Total 19.1 ng/mL (30-100)
== END 2024-06-19 13:28 | disposition home or self-care (01) ==
LOC: NCHCN 13:27
PROVIDERS: Visit Provider Nurse Practitioner Family
DX: I10 Essential (primary) hypertension (principal); Z86.2 Personal history of diseases of the blood and blood-forming organs and certain disorders involving the immune mechanism; R53.83 Other fatigue; E55.9 Vitamin D deficiency, unspecified
CPT/HCPCS: 80053; 80061; 82306; 82607; 82728; 82746; 83540; 83550; 84439; 84443; 85025

== ENCOUNTER 2025-03-17 03:49 | Outpatient (CLI) | payer MEDICARE, MEDICAID, SELFPAY ==
[2025-03-17] MEDS: Inhaler, Assist Device 1 EACH MC (15:49)
[2025-03-17] MEDS: Levalbuterol HFA 15 GM INH 4 PUFF IH (15:50)
--- NOTE | 2025-03-18 09:17 | W.PFT ---
Date of service: 03/17/25 Time of Service: 14:31 Pulmonary Function Test Result Indications: COPD Impression 1. Good patient effort was noted. ATS standards for reproducibility were met. 2. Spirometry showed mild obstructive lung disease with an FEV1 of 89% (2.18 L). FEV1 improved to 105% (2.59 L) post bronchodilator 3. Following the administration of a bronchodilator there was a significant response 4. TLC was normal. No evidence of restrictive lung disease 5. DLCO was normal at 92% predicted
== END 2025-03-17 03:50 | disposition home or self-care (01) ==
LOC: RT 03:49
PROVIDERS: PCP Nurse Practitioner Family; Visit Provider Internal Medicine Pulmonary Disease
DX: J44.9 Chronic obstructive pulmonary disease, unspecified (principal)
CPT/HCPCS: 94060; 94726; 94729

== ENCOUNTER 2025-04-04 03:13 | Outpatient (CLI) | payer MEDICARE, MEDICAID, SELFPAY ==
--- NOTE | 2025-04-04 07:00 | DI.RAD_ITS ---
Exam(s) RF BARIUM SWALLOW EXAM: RF BARIUM SWALLOW CLINICAL HISTORY: GERD, dysphagia,R13.10 TECHNIQUE: 2D and realtime digital imaging was performed. CONTRAST MATERIAL: Thick and thin barium and barium tablet were administered. COMPARISON: CR,XR XR CHEST 2V PA LATERAL from 04/04/2023 FINDINGS: The PA and lateral chest films show normal heart size and clear lung calles. The lateral checkman view of the neck is unremarkable. Esophagus: The patient swallowed barium without difficulty. Noevidence for mucosal erosions. Nofold thickening. No mass is visible. Nostricture. Motility: There is a normal primary stripping wave. No tertiary contractions were noted. There is a small hiatal hernia. Severegastroesophageal reflux was observed during the exam. IMPRESSION: Small sliding hiatal hernia. Severe gastroesophageal reflux. RADIATION DOSE DELIVERED: gopal Carbone=10.5 mGy
[2025-04-04] MEDS: Barium Sulfate 700 MG TAB PO (11:30)
[2025-04-04] MEDS: Simethicone/Sod Bicarb/Cit Ac, 4 gram PACKET 1 PACKET PO (11:31)
[2025-04-04] MEDS: Barium Sulfate 98% W/W 140 ML BTL PO (11:33)
[2025-04-04] MEDS: Barium Sulfate 60% W/V 355 ML BTL PO (11:34)
--- NOTE | 2025-04-04 11:35 | DI.MAMMO_ITS ---
Exam(s) MAMMO SCREENING EXAM: MAMMO SCREENING CLINICAL HISTORY: screening,Z12.39 TECHNIQUE: Mammograms were interpreted according to the usual protocol including computer analysis with CAD system, tomosynthesis and C-view imaging. COMPARISON: No exams were available for comparison. Baseline examination. FINDINGS: The breasts are composed of scattered fibroglandular densities, Breast Density category B. No suspicious masses or suspicious microcalcifications are seen. No skin thickening or abnormal axillary lymph nodes are seen. IMPRESSION: BI-RADS Category 1, Negative mammogram Yearly screening mammography is recommended. Breast Density - Category B - There are scattered areas of fibroglandular density. Breast density Category C or D implies that the patient has dense breast tissue. Dense breast tissue can make it harder to find cancer on a mammogram. Dense breast tissue is also associated with an increased risk of breast cancer. This information about the result of the mammogram report was provided to the patient to raise their awareness. Use this report when you speak with the patient about their risks for breast cancer, which includes their family history. At that time, you may recommend additional screening tests (Ultrasound or MRI) as these tests may add significant information. A negative radiographic report should not delay biopsy if a dominant or clinically suspicious mass is present. Up to ten percent of cancers are not identified on mammography. A negative report may reinforce clinical impression. Adenosis and dense breasts may obscure an underlying neoplasm. False positive reports average 6 to 10%. Patient will receive a letter notifying them of these results.
== END 2025-04-04 03:33 ==
LOC: DI 03:13
PROVIDERS: PCP Nurse Practitioner Family; Visit Provider Nurse Practitioner Family
DX: Z12.31 Encounter for screening mammogram for malignant neoplasm of breast (principal); K21.9 Gastro-esophageal reflux disease without esophagitis; R13.10 Dysphagia, unspecified; R92.323 Mammographic fibroglandular density, bilateral breasts
CPT/HCPCS: 77063; 77067; 74221; J3490

== ENCOUNTER 2025-05-22 01:39 | Outpatient (CLI) | payer MEDICARE, MEDICAID, SELFPAY ==
[2025-05-22 09:27] LABS: Abs Immature Grans 0.02 10^3/uL (0.0-0.06); HCT 40.4 % (36.0-46.0); HGB 13.2 g/dL (11.2-15.7); Immature Grans % 0.3 %; MCH 31.8 pg (27.0-33.0); MCHC 32.7 % (32.0-36.0); MCV 97 fL (80-95); MPV 11.4 fL (8.0-11.0); Platelet Count 224 10^3/uL (130-400); RBC 4.15 10^6/uL (3.93-5.22); RDW 12.5 % (11.7-14.6); RDW-SD 44.9 fL; WBC 6.22 10^3/uL (4.4-10.8)
[2025-05-22 10:11] LABS: ALT 18 U/L (10-49); AST 19 U/L (<34); Albumin 4.1 g/dL (3.2-5.0); Alkaline Phosphatase 92 U/L (46-116); Anion Gap 5 mmol/L (3-11); BUN 15 mg/dL (9-23); Bilirubin, Total 0.2 mg/dL (0.2-1.2); CO2 29.0 mmol/L (20.0-31.0); Calcium 9.1 mg/dL (8.3-10.6); Chloride 108 mmol/L (98-107); Cholesterol 185 mg/dL (<200); Glucose 81 mg/dL (74-106); HDL Cholesterol 49 mg/dL (>40); Potassium 4.5 mmol/L (3.5-5.1); Sodium 142 mmol/L (136-145); Total Protein 6.8 g/dL (5.7-8.2)
[2025-05-22 10:12] LABS: Vitamin D 25 Total 18 ng/mL (30-100)
[2025-05-22 10:13] LABS: TSH (W/Ref FT4) 2.74 uIU/mL (0.55-4.78)
[2025-05-22 10:22] LABS: Hemoglobin A1C 4.7 % (<5.7)
[2025-05-22 10:32] LABS: Ferritin 22 ng/mL (7-271); Folate > 24.0 ng/mL (>5.38); Vitamin B12 290 pg/mL (211-911)
[2025-05-22 11:33] LABS: Iron 83 ug/dL (50-170); Total Iron Binding Capacity 321 ug/dL (250-425); Transferrin Sat 26 % (15-50)
[2025-05-22 19:02] LABS: Hepatitis C Ab w Rflx HCV PCR Negative (Negative)
[2025-05-22 20:22] LABS: FSH 63.6 mIU/mL (See Note)
[2025-05-22 21:34] LABS: HBs Antibody, Quant <3.1 mIU/mL (See Note); Hepatitis B Surface Antigen Negative (Negative)
[2025-05-26 11:36] LABS: HIV-1/2 Ag & Ab Screen Negative (Negative)
== END 2025-05-22 01:40 | disposition home or self-care (01) ==
LOC: LBO 01:40
PROVIDERS: PCP Nurse Practitioner Family; Visit Provider Obstetrics & Gynecology
DX: R73.01 Impaired fasting glucose (principal); D50.9 Iron deficiency anemia, unspecified; E55.9 Vitamin D deficiency, unspecified; E78.5 Hyperlipidemia, unspecified; Z11.59 Encounter for screening for other viral diseases; Z11.4 Encounter for screening for human immunodeficiency virus [HIV]; N93.8 Other specified abnormal uterine and vaginal bleeding
CPT/HCPCS: 36415; 80053; 80061; 82306; 86704; 86706; 86803; 87340; 87389; 82607; 82728; 82746; 83001; 83036; 83540; 83550; 84443; 85025

== ENCOUNTER → 2025-05-28 00:03 | Outpatient (CLI) | payer MEDICARE, MEDICAID, SELFPAY ==
--- NOTE | 2025-05-28 06:51 | DI.US_ITS ---
Exam(s) US PELVIS TRANSVAGINAL EXAM: US PELVIS TRANSVAGINAL CLINICAL HISTORY: dysfunctional uterine bleeding,n93.8 TECHNIQUE: Transabdominal and transvaginal imaging was performed using standard protocol. COMPARISON: CT CT CHEST/ABD/PEL W from 12/04/2018 US US PELVIS TRANSVAGINAL from 05/09/2023 FINDINGS: The transabdominal images are limited by lack of urinary bladder distention. UTERUS: Anteverted. 6.6 by 2.5 x 3.4 cm Endometrium: 3 mm Myometrium: Question of a left fundal fibroid measuring 1.6 x 1.0 x 1.1 cm. Cervix: Unremarkable. OVARIES: Right: 1.8 x 1.1 x 1.6. Cyst or mass: None. Left: Not visualized DOPPLER: Color: Blood flow to the right ovary. CUL-DE-SAC: Free fluid: None. IMPRESSION: 1. Normal-sized uterus with endometrial stripe within normal limits. Question of a small fundal fibroid. 2. Unremarkable right ovary. The left ovary was not able to be visualized. DATA REPOSITORY:
== END ==
LOC: DI 00:03
PROVIDERS: PCP Nurse Practitioner Family; Visit Provider Obstetrics & Gynecology
DX: N93.8 Other specified abnormal uterine and vaginal bleeding (principal)
CPT/HCPCS: 76830; 76856